=== PATIENT | male | born 1955 | race African-American/Black ===

== ENCOUNTER → 2021-01-14 | Emergency (ER) | payer OTHER ==
[~2021-01-14] MED LIST: ACETYLCYST 6,000 MG/30 ML VIAL ONE; CEFTRIAXONE/SWI 1gm 1 GM/10 ML SYR ONE; D50W 25 GM/50 ML SYRINGE IV PRN; GLUCAGON 1 MG/VIAL IM PRN; INSULIN -REGULAR HUMAN 50 UNIT/0.5 ML ML ONE; INSULIN 70/30 100 UNITS/ML SQ SCH; INSULIN GLARGINE 100 UNITS/ML SQ ONE; NA CHLORIDE 0.9% 1,000 ML IV SCH; NA CHLORIDE 0.9% 1,000 ML ONE; NA CHLORIDE 0.9% 500 ML ONE; PANTOPRAZOLE 40 MG INJ ONE; PIPER/TAZO/NS 3.375gm 3.375 GM/100 ML BAG IVPB SCH; VITAMIN K (ADULT) 10 MG/ML ONE
[2021-01-14 23:14] LABS: Protime INR 1.04
[2021-01-14 23:16] LABS: Absolute Lymphocytes (CBC) 1.5 K/uL (0.7-4.9); Basophils % 0.6 % (0-1.3); Hematocrit 29.3 % (39.6-49.0); Lymphocytes % 17.9 % (15.3-44.8); MPV 11.2 fL (7.6-11.3); RBC Red Blood Cell Count 3.06 M/uL (4.33-5.43)
[2021-01-14 23:34] LABS: ALT/SGPT 92 U/L (12-78); AST/SGOT 72 U/L (15-37); Albumin 2.3 g/dL (3.4-5.0); Alkaline Phosphatase 69 U/L (45-117); BUN Blood Urea Nitrogen 28 mg/dL (7-18); Bicarbonate 24 mmol/L (21-32); Bilirubin Direct 0.3 mg/dL (0-0.2); Bilirubin Total 0.5 mg/dL (0.2-1.0); Lipase 190 U/L (73-393); Magnesium 1.8 mg/dL (1.8-2.4); NT PRO-BNP 367 pg/mL (<125); Potassium 4.6 mmol/L (3.5-5.1); Protein, Total 6.5 g/dL (6.4-8.2); Sodium Level 136 mmol/L (136-145); Troponin (Emerg Dept Use Only) < 0.02 ng/mL (0.0-0.045)
[2021-01-14 23:37] LABS: Glucose Level 539 mg/dL (74-106)
--- NOTE | 2021-01-15 00:02 | ER ---
Nurse's Notes [facility] Name: Babatunde Garsia Age: 65 yrs Sex: Male : 1955 Arrival Date: 01/14/2021 Time: 21:50 Bed 4 Private MD: Diagnosis: Anemia, unspecified;Severe sepsis with septic shock;Elevated white blood cell count;Hypotension, unspecified;Type 1 diabetes mellitus with hyperglycemia;Weakness;Lower abdominal pain, unspecified;Unspecified kidney failure;Hemoperitoneum-liver etiology, atrumatic Presentation: 01/14 21:51 Chief complaint: EMS states: called out for low BP, on scene was 50s systolic, pt em reports taking 7 unknown BP medications, on arrival pt BP improved to 88 systolic, pt awake and drowsy, denies chest pain or shortness of breath, states he had LRQ pain, rates 12/14. Coronavirus screen: Client denies travel out of the [place] in the last 14 days. Ebola Screen: Patient negative for fever greater than or equal to 101.5 degrees Fahrenheit, and additional compatible Ebola Virus Disease symptoms Patient denies exposure to infectious person. Patient denies travel to an Ebola-affected area in the 21 days before illness onset. Initial Sepsis Screen: Does the patient meet any 2 criteria? HR > 90 bpm. No. Patient's initial sepsis screen is negative. Does the patient have a suspected source of infection? No. Patient's initial sepsis screen is negative. Risk Assessment: Do you want to hurt yourself or someone else? Patient reports no desire to harm self or others. Onset of symptoms was January 14, 2021. 21:51 Method Of Arrival: EMS: [facility] em 21:51 Acuity: ADRIANNA 2 em Historical: - Allergies: 21:54 No Known Allergies; em - PMHx: 21:54 Diabetes - IDDM; Hypertension; em - PSHx: 21:54 None; em - Immunization history:: Adult Immunizations up to date, Client reports receiving the 2nd dose of the Covid vaccine. - Social history:: Smoking status: Patient denies any tobacco usage or history of. - Family history:: not pertinent. Screenin:51 Abuse screen: Denies threats or abuse. Nutritional screening: No deficits noted. em Tuberculosis screening: No symptoms or risk factors identified. Fall Risk None identified. Assessment: 21:51 General: Appears in no apparent distress. uncomfortable, ill, slender, Behavior is em quiet, restless, Denies fever. Pain: Complains of pain in right lower quadrant Pain currently is 7 out of 10 on a pain scale. Pain began 2 hours ago. Neuro: Level of Consciousness is awake, alert, obeys commands, Oriented to person, place, time, situation, Appropriate for age general weakness everywhere . Cardiovascular: Capillary refill is sluggish Patient's skin is warm and dry. Respiratory: Airway is patent Respiratory effort is even, Respiratory pattern is tachypnea Denies shortness of breath labored breathing. GI: Patient currently denies bloody stool, nausea, vomiting. EENT: Oral mucosa is dry. Derm: Skin is intact, is healthy with good turgor, Skin is pink, warm \T\ dry. Musculoskeletal: Capillary refill < 3 seconds, Range of motion: intact in all extremities. 22:50 Reassessment: Patient appears in no apparent distress at this time. No changes from em previously documented assessment. 01/15 01:09 Reassessment: Patient appears in no apparent distress at this time. Patient is alert, em oriented x 3, equal unlabored respirations, skin warm/dry/pink. Patient states feeling better. Patient states symptoms have improved. 07:00 Reassessment: Patient appears in no apparent distress at this time. No changes from jl7 previously documented assessment. Patient and/or family updated on plan of care and expected duration. Pain level reassessed. Patient is alert, oriented x 3, equal unlabored respirations, skin warm/dry/pink. Pain: Complains of pain in right lower quadrant Pain currently is 7 out of 10 on a pain scale. Pain began 1 day ago. 08:00 Reassessment: Patient appears in no apparent distress at this time. No changes from jl7 previously documented assessment. Patient and/or family updated on plan of care and expected duration. Pain level reassessed. Patient is alert, oriented x 3, equal unlabored respirations, skin warm/dry/pink. 08:57 Reassessment: Patient appears in no apparent distress at this time. No changes from jl7 previously documented assessment. Patient and/or family updated on plan of care and expected duration. Pain level reassessed. Patient is alert, oriented x 3, equal unlabored respirations, skin warm/dry/pink. 12:30 Reassessment: Spoke to charge nurse patient will be transferred. zb 14:40 Reassessment: report given to EMS. Vital Signs: 01/14 21:51 BP 99 / 77; Pulse 109; Resp 26; Temp 97.0; Pulse Ox 94% on R/A; Weight 58.97 kg; Height em 5 ft. 9 in. (175.26 cm); Pain 7/10; 23:09 BP 70 / 52; Pulse 107; Resp 18; Pulse Ox 96% on R/A; em 23:20 BP 81 / 63; Pulse 106; Resp 24; Pulse Ox 93% on R/A; em 23:31 BP 99 / 68; Pulse 104; Resp 18; Pulse Ox 94% on R/A; em 0811 00:00 BP 89 / 57; Pulse 101; Resp 20; Pulse Ox 98% on R/A; em 00:15 BP 88 / 48; Pulse 98; Resp 22; Pulse Ox 99% on R/A; em 00:30 BP 86 / 68; Pulse 102; Resp 24; Pulse Ox 93% on R/A; em 01:14 BP 104 / 71; Pulse 107; Resp 22; Pulse Ox 95% on R/A; em 07:00 BP 116 / 83; Pulse 108; Resp 14; Temp 97.1; Pulse Ox 98% ; Pain 7/10; jl7 08:00 BP 143 / 98; Pulse 104; Resp 15; Pulse Ox 100% ; jl7 12:00 BP 130 / 89; Pulse 108; Resp 18; Pulse Ox 99% ; zb 13:30 BP 139 / 96; Pulse 98; Resp 18; Pulse Ox 98% on R/A; zb 14:38 BP 134 / 91; Pulse 108; Resp 18; Pulse Ox 99% on R/A; zb 01/14 21:51 Body Mass Index 19.20 (58.97 kg, 175.26 cm) em ED Course: 01/14 21:50 Patient arrived in ED. em 21:50 Patient has correct armband on for positive identification. Placed in gown. Bed in low em position. Call light in reach. Side rails up X2. Pulse ox on. NIBP on. 21:51 Maintain EMS IV. Dressing intact. Good blood return noted. Site clean \T\ dry. em 21:54 Triage completed. em 21:54 Arm band placed on. em 21:55 Beto Cooper, RN is Primary Nurse. em 22:07 Tom Montana MD is Attending Physician. severiano 22:25 XRAY Chest (1 view) In Process Unspecified. EDMS 22:45 Inserted saline lock: 18 gauge in right EJ, using aseptic technique. Blood collected. em 23:58 Geraldo Hassan MD is Hospitalizing Provider. [facility] 01/15 01:10 Assisted provider with central line placement. Set up central line tray. Triple lumen em line placed in right femoral. Line placed by Tom Montana MD Placement verified by blood return, Dressed with Tape, Tegaderm, Patient tolerated. 01:47 CT Head Brain wo Cont In Process Unspecified. EDMS 01:47 Chest Abd Pelvis Wo Con In Process Unspecified. EDMS 02:20 initiated a transfer with Krystal Cortes from [facility]. mw2 02:42 all [facility] denied due to capacity. mw2 02:45 initiated a transfer with Brooke Jerry from [facility]. mw2 03:00 all [facility] denied. mw2 03:02 initiated a transfer with John Dominguez from [facility]. mw2 03:[address] Montana with the Trauma doctor from [facility]. mw2 03:32 CT Chest, Abdomen, Pelvis - W/Contrast: lowest iv contrast dose In Process Unspecified. EDMS 03:56 initiated a transfer with Estefani from [facility]. mw2 04:[address] [facility] denied due to capacity. mw2 04:14 initiated a transfer with Bernadette Clements from [facility]. mw2 04:28 [facility] denied due to capacity. mw2 05:12 [facility] denied due to capacity. mw2 10:38 re initiated transfer to [facility]. bd 10:40 pt denied at [facility] due to all [facility] holding pts and no beds available. per KALEB Waters. 10:51 initiated transfer to [facility]. bd 11:06 pt denied due to all [facility] at capacity, per Malika. bd 11:13 initiated transfer to [facility] system. bd 11:22 pt denied at [facility] due to no beds available at any of the [facility] hospitals, per Vera. bd 11:24 re re initiated transfer to [facility]. bd 11:50 Attending Physician role handed off by Tom Montana MD kdr 11:50 Oliverio Hicks MD is Attending Physician. kdr 13:02 pt accepted in transfer to [facility] ER by dr Benavidez, admin approval given by KALEB Waters. 14:30 Patient transferred, IV remains in place. zb 14:45 Primary Nurse role handed off by Beto Cooper, RN zb 14:45 Fay Alexis, JUAN M is Primary Nurse. zb Administered Medications: 01/14 23:01 Drug: NS 0.9% 1000 ml Route: IV; Rate: 1 bolus; Site: left antecubital; em 01/15 01:20 Follow up: IV Status: Completed infusion; IV Intake: 1000ml em 01/14 23:11 Drug: NS 0.9% 1000 ml Route: IV; Rate: 125 ml/hr; Site: left antecubital; em 01/15 14:44 Follow up: Response: No adverse reaction; IV Status: Completed infusion; IV Intake: zb 1000ml 01/14 23:11 Drug: ProTONIX (pantoprazole) 40 mg Route: IVP; Site: left antecubital; em 01/15 01:20 Follow up: Response: No adverse reaction em 00:28 Drug: NS 0.9% 1000 ml Route: IV; Rate: 1 bolus; Site: left antecubital; em 01:20 Follow up: IV Status: Completed infusion; IV Intake: 1000ml em 00:28 Drug: Insulin Regular Human 10 units {Co-Signature: kg (Laurie Parikh RN).} Route: em IVP; Site: right jugular; 02:01 Follow up: Response: Blood sugar is lowered em 00:34 Drug: Rocephin (cefTRIAXone) 1 grams Route: IV; Rate: per protocol; Site: right jugular;em 01:20 Follow up: Response: No adverse reaction; IV Status: Completed infusion; IV Intake: 10mlem 02:16 Drug: Insulin Regular Human 10 units {Co-Signature: em (Beto Cooper RN).} Route: IVP; bb Site: left antecubital; 02:38 Follow up: Response: No adverse reaction em 02:16 Drug: LanTUS (insulin glargine) 35 units Route: Sub-Q; Site: left lower abdomen; bb 06:33 Follow up: Response: No adverse reaction em 03:50 Drug: Vitamin K1 (phytonadione) 10 mg Route: Sub-Q; Site: left lower abdomen; em 06:33 Follow up: Response: No adverse reaction em 03:52 Drug: Mucomyst - Acetylcysteine 600 mg Route: PO; em 06:32 Follow up: Response: No adverse reaction em Medication: 07:39 Blood products: FFP X 2 units given. jl7 Intake: 01:20 IV: 10ml; Total: 10ml. em 01:20 IV: 1000ml; Total: 1010ml. em 01:20 IV: 1000ml; Total: 2010ml. em 14:44 IV: 1000ml; Total: 3010ml. zb Outcome: 00:01 Decision to Hospitalize by Provider. severiano 13:30 Transferred by ground EMS to [facility], Transfer form completed. zb 14:42 Condition: stable zb 15:05 Patient left the ED. zb Signatures: Dispatcher [employer] EDMS Eusebia Sanchez Corey, MD MD cha Rittger, Kevin, MD MD kdr Munoz, Edgar, RN RN em Opal Martin RN RN bb Leal, Jahala, RN RN jl7 Pilar Ramirez 2 Fay Alexis RN RN zb Laurie Cooper RN em
--- NOTE | 2021-01-15 00:02 | EDPHYS ---
Physician Documentation [facility] Name: Babatunde Garsia Age: 65 yrs Sex: Male : 1955 Arrival Date: 01/14/2021 Time: 21:50 Bed 4 Private MD: ED Physician Oliverio Hicks HPI: 01/14 22:45 This 65 yrs old Black Male presents to ER via EMS with complaints of LOW BP. severiano 22:45 The patient presents with abdominal pain right lower quadrant. Onset: The severiano symptoms/episode began/occurred just prior to arrival. The symptoms do not radiate. Associated signs and symptoms: Pertinent positives: nausea and vomiting. Historical: - Allergies: 21:54 No Known Allergies; em - PMHx: 21:54 Diabetes - IDDM; Hypertension; em - PSHx: 21:54 None; em - Immunization history:: Adult Immunizations up to date, Client reports receiving the 2nd dose of the Covid vaccine. - Social history:: Smoking status: Patient denies any tobacco usage or history of. - Family history:: not pertinent. ROS: 22:48 Constitutional: Negative for fever, chills, and weight loss, Eyes: Negative for injury, severiano pain, redness, and discharge, ENT: Negative for injury, pain, and discharge, Neck: Negative for injury, pain, and swelling, Cardiovascular: Negative for chest pain, palpitations, and edema, Respiratory: Negative for shortness of breath, cough, wheezing, and pleuritic chest pain, Back: Negative for injury and pain, : Negative for injury, bleeding, discharge, and swelling, MS/Extremity: Negative for injury and deformity, Skin: Negative for injury, rash, and discoloration, Psych: Negative for depression, anxiety, suicide ideation, homicidal ideation, and hallucinations, Allergy/Immunology: Negative for hives, rash, and allergies, Endocrine: Negative for neck swelling, polydipsia, polyuria, polyphagia, and marked weight changes, Hematologic/Lymphatic: Negative for swollen nodes, abnormal bleeding, and unusual bruising. 22:48 Respiratory: Positive for cough, with no reported sputum, dyspnea on exertion. 22:48 Abdomen/GI: Positive for abdominal pain, of the right lower quadrant. Exam: 22:48 Constitutional: This is a well developed, well nourished patient who is awake, alert, severiano and in no acute distress. Head/Face: Normocephalic, atraumatic. ENT: Nares patent. No nasal discharge, no septal abnormalities noted. Tympanic membranes are normal and external auditory canals are clear. Oropharynx with no redness, swelling, or masses, exudates, or evidence of obstruction, uvula midline. Mucous membranes moist. Neck: Trachea midline, no thyromegaly or masses palpated, and no cervical lymphadenopathy. Supple, full range of motion without nuchal rigidity, or vertebral point tenderness. No Meningismus. Chest/axilla: Normal chest wall appearance and motion. Nontender with no deformity. No lesions are appreciated. Respiratory: Lungs have equal breath sounds bilaterally, clear to auscultation and percussion. No rales, rhonchi or wheezes noted. No increased work of breathing, no retractions or nasal flaring. Abdomen/GI: Soft, non-tender, with normal bowel sounds. No distension or tympany. No guarding or rebound. No evidence of tenderness throughout. Back: No spinal tenderness. No costovertebral tenderness. Full range of motion. Male : Normal genitalia with no discharge or lesions. Skin: Warm, dry with normal turgor. Normal color with no rashes, no lesions, and no evidence of cellulitis. MS/ Extremity: Pulses equal, no cyanosis. Neurovascular intact. Full, normal range of motion. Neuro: Awake and alert, GCS 15, oriented to person, place, time, and situation. Cranial nerves II-XII grossly intact. Motor strength 5/5 in all extremities. Sensory grossly intact. Cerebellar exam normal. Normal gait. Psych: Awake, alert, with orientation to person, place and time. Behavior, mood, and affect are within normal limits. 22:48 Eyes: Conjunctiva: pale, bilaterally. 22:48 ECG was reviewed by the Attending Physician. 22:48 Abdomen/GI: Inspection: abdomen appears normal, Bowel sounds: normal, active, all quadrants, Palpation: moderate abdominal tenderness, in the right lower quadrant, Rectal exam: is unremarkable, Prostate: normal, rectal tone normal, Stool: normal, guaiac negative, hemorrhoid(s), are not appreciated, swelling, is not appreciated, tenderness, is not appreciated, Liver: no appreciated palpable abnormalities, Hernia: not appreciated. Vital Signs: 21:51 BP 99 / 77; Pulse 109; Resp 26; Temp 97.0; Pulse Ox 94% on R/A; Weight 58.97 kg; Height em 5 ft. 9 in. (175.26 cm); Pain 7/10; 23:09 BP 70 / 52; Pulse 107; Resp 18; Pulse Ox 96% on R/A; em 23:20 BP 81 / 63; Pulse 106; Resp 24; Pulse Ox 93% on R/A; em 23:31 BP 99 / 68; Pulse 104; Resp 18; Pulse Ox 94% on R/A; em 08/11 00:00 BP 89 / 57; Pulse 101; Resp 20; Pulse Ox 98% on R/A; em 00:15 BP 88 / 48; Pulse 98; Resp 22; Pulse Ox 99% on R/A; em 00:30 BP 86 / 68; Pulse 102; Resp 24; Pulse Ox 93% on R/A; em 01:14 BP 104 / 71; Pulse 107; Resp 22; Pulse Ox 95% on R/A; em 07:00 BP 116 / 83; Pulse 108; Resp 14; Temp 97.1; Pulse Ox 98% ; Pain 7/10; jl7 08:00 BP 143 / 98; Pulse 104; Resp 15; Pulse Ox 100% ; jl7 12:00 BP 130 / 89; Pulse 108; Resp 18; Pulse Ox 99% ; zb 13:30 BP 139 / 96; Pulse 98; Resp 18; Pulse Ox 98% on R/A; zb 14:38 BP 134 / 91; Pulse 108; Resp 18; Pulse Ox 99% on R/A; zb 08/10 21:51 Body Mass Index 19.20 (58.97 kg, 175.26 cm) em Procedures: 01:09 Central Line: the site was prepped with Betadine, in sterile fashion, a triple lumen severiano catheter was inserted, in the right in 1 attempts. placement was verified, by blood return, the site was dressed with 4X4s, using sterile technique, the patient tolerated the procedure, well. MDM: 01/14 22:07 Patient medically screened. severiano 22:51 Differential diagnosis: AAA, bowel obstruction, diverticulitis, GI Bleed, Hepatitis, severiano myocardia ischemia or infarction, non-specific abd pain, pancreatitis, Peptic Ulcer Disease, Peritonitis, urinary tract infection. Data reviewed: vital signs, nurses notes, EMS record, lab test result(s), EKG, radiologic studies, CT scan, plain films. Data interpreted: tunnel worker: rate is 109 beats/min, rhythm is regular, Pulse oximetry: on room air is 94 %. Test interpretation: by ED physician or midlevel provider: ECG, plain radiologic studies. Counseling: I had a detailed discussion with the patient and/or guardian regarding: the historical points, exam findings, and any diagnostic results supporting the discharge/admit diagnosis, lab results, radiology results, the need for further work-up and treatment in the hospital. 01/14 21:58 Order name: Basic Metabolic Panel; Complete Time: 23:55 01/14 21:58 Order name: CBC with Diff; Complete Time: 23:35 01/14 21:58 Order name: LFT's; Complete Time: 23:55 01/14 21:58 Order name: Magnesium; Complete Time: 23:55 01/14 21:58 Order name: NT PRO-BNP; Complete Time: 23:55 01/14 21:58 Order name: PT-INR; Complete Time: 23:35 01/14 21:58 Order name: Troponin (emerg Dept Use Only); Complete Time: 23:55 01/14 22:09 Order name: Urine Culture [facility] 01/14 22:44 Order name: Procalcitonin; Complete Time: 02:22 [facility] 01/14 22:44 Order name: Lactate; Complete Time: 23:55 [facility] 01/14 22:45 Order name: Type And Screen; Complete Time: 07:11 [facility] 01/14 22:48 Order name: COVID-19 : Document "Date of Symptom Onset" if Symptomatic. [facility] 01/14 23:03 Order name: Lipase; Complete Time: 23:55 [facility] 01/14 23:56 Order name: Blood Culture Adult (2) [facility] 01/15 00:42 Order name: Urinalysis 01/15 01:19 Order name: SARS-COV-2 RT PCR; Complete Time: 02:22 [facility] 01/15 01:36 Order name: Glucose, Ancillary Testing; Complete Time: 02:22 [facility] 01/15 02:24 Order name: CBC with Diff; Complete Time: 07:11 [facility] 01/15 02:28 Order name: Fresh Frozen Plasma [facility] 01/15 02:28 Order name: Packed RBC Leukored [facility] 01/15 02:42 Order name: Manual Differential; Complete Time: 07:11 [facility] 01/15 06:20 Order name: CBC with Diff; Complete Time: 07:11 severiano 01/15 06:23 Order name: Chem 7 severiano 01/15 06:24 Order name: Basic Metabolic Panel; Complete Time: 07:11 [facility] 01/15 11:07 Order name: Comprehensive Metabolic Panel [facility] 01/15 11:07 Order name: Magnesium [facility] 01/15 11:07 Order name: NT PRO-BNP [facility] 01/15 11:07 Order name: Phosphorus [facility] 01/14 21:58 Order name: XRAY Chest (1 view); Complete Time: 10:15 em 01/14 22:48 Order name: CT Head Brain wo Cont severiano 01/14 23:39 Order name: Chest Abd Pelvis Wo Con [facility] 01/15 03:00 Order name: CT Chest, Abdomen, Pelvis - W/Contrast: lowest iv contrast dose [facility] 01/15 11:07 Order name: Protime (+INR) [facility] 01/15 11:07 Order name: PTT, Activated Partial Thromb [facility] 01/15 11:07 Order name: CBC with Automated Diff [facility] 01/15 11:07 Order name: Lactate Sepsis 2 HR Follow-up; Complete Time: 11:43 [facility] 01/15 11:44 Order name: CBC with Diff kdr 01/15 11:44 Order name: Chem 7 kdr 01/15 12:07 Order name: Glucose, Ancillary Testing [facility] 01/15 12:55 Order name: CBC Smear Scan [facility] 01/15 14:22 Order name: Magnesium [facility] 01/15 14:22 Order name: NT PRO-BNP [facility] 01/15 14:22 Order name: Phosphorus [facility] 01/15 14:22 Order name: Procalcitonin [facility] 01/15 14:22 Order name: Protime (+INR) [facility] 01/15 14:22 Order name: PTT, Activated Partial Thromb [facility] 01/15 14:22 Order name: CBC with Automated Diff ED[facility] 01/15 14:22 Order name: CBC with Automated Diff [facility] 01/15 14:22 Order name: CBC with Automated Diff [facility] 01/15 14:22 Order name: CBC with Automated Diff [facility] 01/15 14:22 Order name: CBC with Automated Diff [facility] 01/15 14:22 Order name: CBC with Automated Diff [facility] 01/15 14:22 Order name: CBC with Automated Diff [facility] 01/15 14:22 Order name: CBC with Automated Diff [facility] 01/15 14:22 Order name: CBC with Automated Diff [facility] 01/14 21:58 Order name: EKG; Complete Time: 21:59 em 01/14 21:58 Order name: Cardiac monitoring; Complete Time: 22:53 em 01/14 21:58 Order name: EKG - Nurse/Tech; Complete Time: 22:53 em 01/14 21:58 Order name: IV Saline Lock; Complete Time: 22:53 em 01/14 21:58 Order name: Labs collected and sent; Complete Time: :53 em 01/14 21:58 Order name: O2 Per Protocol; Complete Time: 22:53 em 01/14 21:58 Order name: O2 Sat Monitoring; Complete Time: 22:53 em 01/14 22:27 Order name: Blood Glucose Level; Complete Time: 22:53 [facility] 01/15 02:37 Order name: Transfuse; Complete Time: 03:09 [facility] EC:48 Rate is 105 beats/min. Rhythm is regular. QRS [place] is Normal. OR interval is normal. severiano QRS interval is normal. QT interval is normal. No Q waves. T waves are Inverted in leads II, III, aVF. No ST changes noted. Clinical impression: NSR w/ Non-specific ST/T Changes and No evidence of ischemia. Interpreted by me. Reviewed by me. Administered Medications: 23:01 Drug: NS 0.9% 1000 ml Route: IV; Rate: 1 bolus; Site: left antecubital; 01/15 01:20 Follow up: IV Status: Completed infusion; IV Intake: 1000ml 01/14 23:11 Drug: NS 0.9% 1000 ml Route: IV; Rate: 125 ml/hr; Site: left antecubital; 01/15 14:44 Follow up: Response: No adverse reaction; IV Status: Completed infusion; IV Intake: zb 1000ml 01/14 23:11 Drug: ProTONIX (pantoprazole) 40 mg Route: IVP; Site: left antecubital; 01/15 01:20 Follow up: Response: No adverse reaction em 00:28 Drug: NS 0.9% 1000 ml Route: IV; Rate: 1 bolus; Site: left antecubital; em 01:20 Follow up: IV Status: Completed infusion; IV Intake: 1000ml em 00:28 Drug: Insulin Regular Human 10 units {Co-Signature: kg (Laurie Parikh RN).} Route: em IVP; Site: right jugular; 02:01 Follow up: Response: Blood sugar is lowered em 00:34 Drug: Rocephin (cefTRIAXone) 1 grams Route: IV; Rate: per protocol; Site: right jugular;em 01:20 Follow up: Response: No adverse reaction; IV Status: Completed infusion; IV Intake: 10mlem 02:16 Drug: Insulin Regular Human 10 units {Co-Signature: em (Beto Cooper RN).} Route: IVP; bb Site: left antecubital; 02:38 Follow up: Response: No adverse reaction em 02:16 Drug: LanTUS (insulin glargine) 35 units Route: Sub-Q; Site: left lower abdomen; bb 06:33 Follow up: Response: No adverse reaction em 03:50 Drug: Vitamin K1 (phytonadione) 10 mg Route: Sub-Q; Site: left lower abdomen; em 06:33 Follow up: Response: No adverse reaction em 03:52 Drug: Mucomyst - Acetylcysteine 600 mg Route: PO; em 06:32 Follow up: Response: No adverse reaction em Disposition Summary: 01/15/21 00:01 Hospitalization Ordered Hospitalization Status: Inpatient Admission severiano Provider: Geraldo Hassan cha Condition: Serious severiano Problem: new severiano Symptoms: have improved severiano Bed/Room Type: Standard severiano Location: Intensive Care Unit(01/15/21 03:00) severiano Room Assignment: (01/15/21 03:00) severiano Diagnosis - Anemia, unspecified severiano - Severe sepsis with septic shock severiano - Elevated white blood cell count severiano - Hypotension, unspecified severiano - Type 1 diabetes mellitus with hyperglycemia severiano - Weakness severiano - Lower abdominal pain, unspecified severiano - Unspecified kidney failure severiano - Hemoperitoneum - liver etiology, atrumatic severiano Forms: - Medication Reconciliation Form severiano - SBAR form severiano Signatures: Dispatcher [employer] Liliana Hernandez, NICKI-C CEMENTING MACHINE OPERATOR-Tom Ratliff MD MD cha Rittger, Kevin, MD MD kdr Munoz Beto, RN RN em Opal Martin RN RN Gale Wilder, JUAN M RN Fay Warren RN, RN Beto Cooper RN em Corrections: (The following items were deleted from the chart) 01/14 22:41 22:10 Abdomen Pelvis W Con+CT.RAD.BRZ ordered. EDMS EDMS 23:01 22:10 LIPASE+C.LAB.BRZ ordered. EDMS EDMS 23:03 22:49 CORONAVIRUS ordered. EDMS EDMS 23:39 22:34 Chest Abdomen Pelvis W Con+CT.RAD.BRZ ordered. EDMS EDMS 01/15 02:42 00:01 Telemetry/MedSurg (Inpatient) [facility] 02:42 00:01 severiano 03:00 02:42 BR ER HOLD cg [facility] 03:00 02:42 ERHOLD- cg severiano
[2021-01-15 02:41] LABS: Absolute Lymphocytes (CBC) 0.7 K/uL (0.7-4.9); Basophils % 0.1 % (0-1.3); Hematocrit 26.7 % (39.6-49.0); Lymphocytes % 8.8 % (15.3-44.8); MPV 10.2 fL (7.6-11.3); RBC Red Blood Cell Count 2.79 M/uL (4.33-5.43)
[2021-01-15 03:19] LABS: Blood Morphology Comment NOT SEEN (NOT SEEN); Platelet Estimate ADEQ
[2021-01-15 06:39] LABS: Basophils % 0.2 % (0-1.3); Hematocrit 33.1 % (39.6-49.0); Lymphocytes % 11.4 % (15.3-44.8); MPV 10.7 fL (7.6-11.3); RBC Red Blood Cell Count 3.53 M/uL (4.33-5.43)
[2021-01-15 07:10] LABS: Potassium 5.8 mmol/L (3.5-5.1)
--- NOTE | 2021-01-15 07:31 | EKG ---
Test Date: 2021-01-14 Test Time: 22:46:43 Open Winder: SANJUANITA MEASUREMENT RESULTS: Intervals: Rate: 105 CA: 150 QRSD: 70 QT: 364 QTc: 481 [place]ue[place]: P: 36 CA: 150 QRS: 11 T: -27 INTERPRETIVE STATEMENTS: Sinus tachycardia Nonspecific T wave abnormality Abnormal ECG Compared to ECG 01/10/2011 10:48:04 Sinus rhythm no longer present Left ventricular hypertrophy no longer present T-wave abnormality still present Electronically Signed On 01-15-21 07:30:56 CDT by Ralf Cooper
--- NOTE | 2021-01-15 07:38 | RAD REPORT ---
EXAM DESCRIPTION: RAD - Chest Single View - 01/14/2021 10:25 pm CLINICAL HISTORY: low BP COMPARISON: Chest Pa And Lat (2 Views) dated 06/29/2017; Chest Single View dated 11/07/2015 FINDINGS: No evidence of edema or pneumonia. The heart size is within normal limits.No acute osseous abnormality. No significant pleural effusions or pneumothorax. IMPRESSION: No acute cardiopulmonary disease.
--- NOTE | 2021-01-15 11:33 | CON ---
Please note that the patient was came in the ER by Surgery last night. Dr. Del Rio went and saw him immediately upon ER request and evaluated the patient, and he has signed out this patient to me as warren merida is leaving town. History: The patient is a 65-year-old gentleman, who yesterday afternoon at 0345 started to have nicolette e pain on the right side of his belly, then felt dizzy and fell. Then, he came to the emergency room . He had a little bit of nausea and vomiting. When EMS picked him up, his blood pressure was low. The patient has no sore throat, runny nose, cough, headaches, or dizziness. No chest pain. No fever or chills. No diarrhea or constipation. No blood in his stool. No dysuria or hematuria. Review of Systems: Otherwise unremarkable. Past Medical History: Significant for diabetes type 2, hypertension. Past Surgical History: Noncontributory. Allergies: NO ALLERGIES. Social History: The patient was a heavy drinker in the past. He states that he drinks approximately 3 beers a day now. He does not smoke tobacco. Family History: Noncontributory. He has been vaccinated for COVID. Physical Examination: Vital Signs: Blood pressure of 199 systolic, pulse rate of 104, O2 saturation of 94% on room air. General: He is awake, alert. Head and Neck: Cranial nerves 2 through 12 are grossly within normal limits. No neck masses. No JV D. Throat clear. Neck is supple. Sclerae somewhat muddy appearing. Chest: Clear. Heart: S1 and S2. Abdomen: Soft, nondistended. Minimal tenderness on the right side. No rebound, rigidity, or guardi ng. Extremities: Adequately perfused. Nontender. Neuro: Nonfocal. Laboratory Data: CT of the abdomen and pelvis and chest reviewed with the radiologist. Essentially, the patient has cirrhosis of the liver and a mass 5.2 x 5.2 x 6.8 with active hemorrhage, some free blood in the peritoneal cavity as well, cholelithiasis, and scattered ill-defined low-density heterog eneous lesions adjacent to the mass in the right liver, which may represent local spread of disease. His laboratory data shows H and H are 9.7 and 29.3 on admission, currently is 11.3 and 33.1. The tg butts did receive transfusion, I believe it was 1 unit. His PT was 12 on admission. His potassium i s elevated at 5.8. Lactic acid is 6.5. Glucose is 424. Procalcitonin is 0.52. BUN and creatinine are 28 and 2.16. Prior to that, it was 28 and 2.86. AST and ALT are slightly elevated at 72 and 92. Albumin is 2.3. Assessment: A 65-year-old gentleman with multiple medical problems with bleeding liver mass with cir rhosis, most likely hepatocellular carcinoma. Recommendations: The patient needs to be transferred immediately to a tertiary care facility. He ma y need intervention with embolization for this bleeding first and then diagnostic workup. His progno sis is very poor. He is clinically stable right now. We will continue to support him with blood and blood products as needed. Surgical intervention would only be considered in a grave situation. Rojelio n of care discussed with all the physicians taking care of this patient. Transfer mechanism is in pr ogress. Please note, the reason we having difficulty transferring this patient is because of lack of bed avai lability in the [place] area. We may need to transfer him elsewhere in the [facility]. We will work with Dr. Hicks and trying to arrange for a timely transfer for this patient. CYNTHIA/MODL Voice ID: [id number] Report ID: [id number]
--- NOTE | 2021-01-15 11:51 | RAD REPORT ---
EXAM DESCRIPTION: CT - Head Brain Wo Cont - 01/15/2021 6:07 am CLINICAL HISTORY: 65 years Male Weakness; Mental status change TECHNIQUE: Axial noncontrast CT head with coronal and sagittal reformats. All CT scans at this [facility] use dose modulation, iterative reconstruction, and/or weight based dosing when appropriate to red uce radiation dose to as low as reasonably achievable. COMPARISON: None. FINDINGS: Brain: Diffuse parenchymal volume loss. Chronic small vessel disease. Remote lacunar infar ct in the left thalamus. No obvious large acute territorial infarction. No intracranial hemorrhage, m idline shift, mass or mass effect. Ventricles: No hydrocephalus. Orbits: Unremarkable. Sinuses: Visualized portions are clear. Mastoid: Clear. Osseous: Unremarkable. Soft tissues: Unremarkable. IMPRESSION: No acute findings. Due to temporary technical issues with the PACS/Fluency reporting system, reports are being signed by the in house radiologist without review as a courtesy to ensure prompt reporting. The interpreting r adiologist is fully responsible for the content of the report.
--- NOTE | 2021-01-15 12:07 | RAD REPORT ---
EXAM DESCRIPTION: CT - Chest Abd Pelvis Wo Con - 01/15/2021 6:07 am CLINICAL HISTORY: 65 years Male Abdominal distention; Pain TECHNIQUE: CT chest, abdomen, pelvis protocol without intravenous contrast. Coronal and sagittal ref ormats were performed. All CT scans at this facility use dose modulation, iterative reconstruction, a nd/or weight based dosing when appropriate to reduce radiation dose to as low as reasonably achievabl e. COMPARISON: None. FINDINGS: Chest: Lungs: Minimal bibasilar dependent atelectasis. Pleura: No pneumothorax. No pleural effusion. Mediastinum: Dense coronary artery calcifications. No mediastinal mass or adenopathy. No pericardial effusion. Vascular: Grossly unremarkable. Bones: Multilevel degenerative changes. Sclerosis of the right sixth rib. Soft tissues: Unremarkable Abdomen/Pelvis: Liver: Large hyperdense fluid posterior and inferior to the right hepatic lobe. Underlying hepatic le carlos is difficult to evaluate in this noncontrast study. Gallbladder: No calcified stone. Pancreas: Within normal limits. Spleen: Calcified granulomas are present. Perisplenic fluid is also seen. Kidney: No stone or hydronephrosis. Adrenal glands: Within normal limits. Vascular structures: Atherosclerosis of the aorta and its major branches. Bowel: No bowel distention. Appendix: Not seen. Peritoneum/retroperitoneum: There is also hemorrhage in the pelvis. No free air. Lymph Nodes: No lymphadenopathy. Reproductive: Unremarkable. Urinary bladder: Unremarkable. Osseous structures: Multilevel degenerative changes. Soft tissues: Unremarkable. IMPRESSION: Hemoperitoneum in the abdomen and pelvis. Suspect that the source of hemorrhage is proba radha from the right hepatic lobe. Underlying hepatic lesion is difficult to evaluate in this noncontra st study. THIS REPORT CONTAINS FINDINGS THAT MAY BE CRITICAL TO PATIENT CARE: The findings were verbally discu ssed via telephone conference with Tom Montana MD on 01/15/2021 at 2:21 AM CDT. Electronically signed by: Diego Madrid MD 01/15/2021 2:28 AM CDT Due to temporary technical issues with the PACS/Fluency reporting system, reports are being signed by the in house radiologist without review as a courtesy to ensure prompt reporting. The interpreting r adiologist is fully responsible for the content of the report.
--- NOTE | 2021-01-15 12:18 | RAD REPORT ---
EXAM DESCRIPTION: CT - Chest Abdomen Pelvis W Cont - 01/15/2021 6:06 am ADDENDUM #1 THIS REPORT CONTAINS FINDINGS THAT MAY BE CRITICAL TO PATIENT CARE: The findings were verbally discu ssed via telephone conference with Dr. Tom Montana by Dr. Tutu Guzman on 01/15/2021 4:17 AM CDT .The results were acknowledged and understood. Electronically signed by: Tutu Guzman MD 01/15/2021 4:26 AM CDT End of Addendum CLINICAL HISTORY: The patient is 65 years old and is Male; Cough;Abdominal distention;Pain TECHNIQUE: Axial computed tomography images of the chest, abdomen and pelvis with intravenous contra st. Sagittal and coronal reformatted images were created and reviewed. This CT exam was performed using one or more of the following dose reduction techniques: automated exposure control, adjustme nt of the mA and/or kV according to patient size, and/or use of iterative reconstruction technique. COMPARISON: CT chest abdomen and pelvis without contrast January 15, 2021 1:44 AM. FINDINGS: CHEST: Lungs: Bibasilar and dependent atelectasis. Pleural space: Unremarkable. No significant effusion. No pneumothorax. Heart: Unremarkable. No cardiomegaly. No significant pericardial effusion. Mediastinum: Small hiatal hernia. ABDOMEN: Liver: Cirrhotic appearance to the liver with a nodular contour to the liver surface and caudate hypertrophy. There appears to be a round 5.2 x 5.2 x 6.8 cm discrete slightly hypodense and heterogeneous mass in the right posterior liver. On arterial phase imaging, there is contrast blush within the mas s suggestive of active hemorrhage. There are scattered ill-defined low-density heterogeneous lesions adjacent to the mass in the right liver which may represent local spread of disease. There is a high/mixed-density fluid collection around the liver and spleen tracking down int o the lower abdomen and pelvis. Gallbladder and bile ducts: Cholelithiasis. No ductal dilation. Pancreas: Unremarkable. No ductal dilation. No mass. Spleen: See above. Adrenals: Unremarkable. No mass. Kidneys and ureters: Unremarkable. No hydronephrosis. No solid mass. Stomach and bowel: Unremarkable. No obstruction. No mucosal thickening. PELVIS: Appendix: No findings to suggest acute appendicitis. Bladder: Unremarkable. No mass. Reproductive: Unremarkable as visualized. CHEST, ABDOMEN and PELVIS: Intraperitoneal space: Unremarkable. No significant fluid collection. No free air. Bones/joints: Disc space narrowing with destructive endplate changes in the spine from L2-3 thro ugh L5-S1. No acute fracture. No dislocation. Soft tissues: Unremarkable. Vasculature: Scattered atherosclerotic vascular calcifications. Lymph nodes: Unremarkable. No enlarged lymph nodes. IMPRESSION: 1. Cirrhotic appearance to the liver with a nodular contour to the liver surface and c audate hypertrophy. 2. There appears to be a round 5.2 x 5.2 x 6.8 cm discrete slightly hypodense and heterogeneous mas s in the right posterior liver. On arterial phase imaging, there is contrast blush within the mass marin ggestive of active hemorrhage. There are scattered ill-defined low-density heterogeneous lesions vera cent to the mass in the right liver which may represent local spread of disease. Findings are matteo rning for malignancy. 3. There is a high/mixed-density fluid collection around the liver and spleen tracking down into th e lower abdomen and pelvis. Findings are suggestive of evolving hemoperitoneum related to the hemorrhagic mass. 4. Cholelithiasis. Electronically signed by: Tutu Guzman MD 01/15/2021 4:06 AM CDT Due to temporary technical issues with the PACS/Fluency reporting system, reports are being signed by the in house radiologist without review as a courtesy to ensure prompt reporting. The interpreting r adiologist is fully responsible for the content of the report.
[2021-01-15 12:37] LABS: Albumin 2.5 g/dL (3.4-5.0); Bilirubin Total 0.6 mg/dL (0.2-1.0); Magnesium 1.8 mg/dL (1.8-2.4); Phosphorus 3.2 mg/dL (2.5-4.9); Potassium 4.3 mmol/L (3.5-5.1); Protein, Total 6.6 g/dL (6.4-8.2)
[2021-01-15 12:42] LABS: Absolute Lymphocytes (CBC) 1.4 K/uL (0.7-4.9); Basophils % 0.4 % (0-1.3); Hematocrit 28.5 % (39.6-49.0); MPV 10.7 fL (7.6-11.3); RBC Red Blood Cell Count 3.08 M/uL (4.33-5.43)
[2021-01-15 12:43] LABS: Protime INR 0.97
--- NOTE | 2021-01-15 14:16 | P.CNS ---
Date of Consult: 01/15/21 Reason for Consult: Medical management Requesting Physician: Tom Montana Chief Complaint: Abdominal pain History of Present Illness: Patient is a 65-year-old gentleman who came to the hospital with abdominal discomfort. He was going to go to work at the [employer]; however, he started feeling weak and having pain so he had EMS come to evaluate him. He was found have a systolic blood pressure in the 50s. He had apparently taken a few extra blood pressure medications for unknown reason. He was brought into the emergency room and on arrival he had multiple imaging studies performed as he was having some abdominal discomfort. Imaging of the abdomen revealed liver hemorrhage. Decision was made to transfer to a tertiary care facility in general surgeon, Dr. Del Rio, was called out. He evaluated the patient and requested transfer. Patient also has multiple medical problems including hyperglycemia from diabetes. Patient also with acute liver injury. We were consulted to help manage patient's medical conditions. Allergies No Known Allergies Allergy (Unverified 08/26/15 14:58) - Past Medical/Surgical History -: Type 2 diabetes -: None - Family History Father Family History: Reviewed- Non-Contributory - Social History Smoking Status: Never smoker Alcohol use: No CD- Drugs: No Review of Systems 10-point ROS is otherwise unremarkable Physical Examination Reviewed General: Alert, In no apparent distress, Oriented x3 HEENT: Atraumatic, PERRLA, Mucous membr. moist/pink, EOMI, Sclerae nonicteric Neck: Supple, 2+ carotid pulse no bruit, No LAD, Without JVD or thyroid abnormality Respiratory: Clear to auscultation bilaterally, Normal air movement Cardiovascular: Regular rate/rhythm, Normal S1 S2 Gastrointestinal: Normal bowel sounds, Soft and benign, Non-distended, No guarding, Tenderness, Rebound Musculoskeletal: No clubbing, No swelling, No tenderness Integumentary: No rashes Neurological: Normal gait, Normal speech, Normal tone, Sensation intact, Cranial nerves 3-12 intact, Normal affect Lymphatics: No axilla or inguinal lymphadenopathy Laboratory Data (last 24 hrs) 01/15/21 12:00: WBC 7.20 D, Hgb 9.8 L, Hct 28.5 L, Plt Count 95 L 01/15/21 12:00: PT 11.2, INR 0.97, APTT 25.1 01/15/21 12:00: Sodium 139, Potassium 4.3, BUN 25 H, Creatinine 1.73 H, Glucose 329 H, Phosphorus 3.2, Magnesium 1.8, Total Bilirubin 0.6, AST 487 H* D, ALT 217 H D, Alkaline Phosphatase 76 01/15/21 06:25: Sodium 135 L, Potassium 5.8 H*, BUN 28 H, Creatinine 2.16 H, Glucose 400 H 01/15/21 06:25: WBC 8.50, Hgb 11.3 L, Hct 33.1 L D, Plt Count 116 L 01/15/21 02:25: WBC 8.20, Hgb 9.0 L, Hct 26.7 L, Plt Count 129 L D 01/14/21 22:45: PT 12.0, INR 1.04 01/14/21 22:45: WBC 8.30, Hgb 9.7 L, Hct 29.3 L, Plt Count 167 01/14/21 22:45: Sodium 136, Potassium 4.6, BUN 28 H, Creatinine 2.86 H, Glucose 539 H*, Magnesium 1.8, Total Bilirubin 0.5, AST 72 H, ALT 92 H, Alkaline Phosphatase 69, Lipase 190 01/14/21 22:09: Lipase Cancelled - Problems (1) Traumatic hemorrhage of liver Current Visit: Yes Status: Acute (2) Hyperglycemia Current Visit: Yes Status: Acute (3) Anemia Current Visit: Yes Status: Acute (4) Type 2 diabetes mellitus Current Visit: Yes Status: Acute Conclusions/ Impression: Plan: 1. Continue with IV hydration and monitor H&H and coagulation profile. 2. Continue with IV antibiotics 3. Continue with pain control 4. NPO 5. GI consultation; general surgery consultation 6. Serial H&H, and we will monitor LFTs and lipase along with electrolytes. 7. Strict blood sugar control 8. GI and DVT prophylaxis Critical Care: Yes Time Spent Managing Pts care (In Minutes): 60
[2021-01-15 15:26] VITALS: TEMP 97.1
[2021-01-15 15:32] VITALS: BP 134/91; O2SAT 99
[2021-01-15 19:03] LABS: Blood Morphology Comment NOT SEEN (NOT SEEN); Platelet Estimate DECR; White Blood Cell Scan OK (OK)
== END ==
LOC: ER 21:46
PROC: 30233K1 Transfusion of Nonautologous Frozen Plasma into Peripheral Vein, Percutaneous Approach (ICD-10-PCS; principal; 2021-01-14)
PROC: 06HT33Z Insertion of Infusion Device into Right Foot Vein, Percutaneous Approach (ICD-10-PCS; 2021-01-14)
DX: D64.9 Anemia, unspecified (principal); R65.21 Severe sepsis with septic shock; K66.1 Hemoperitoneum; N19 Unspecified kidney failure; D72.829 Elevated white blood cell count, unspecified; E10.65 Type 1 diabetes mellitus with hyperglycemia; R53.1 Weakness; R10.31 Right lower quadrant pain; Z20.822 Contact with and (suspected) exposure to COVID-19
CPT/HCPCS: 36430; 36556; 93005; 85025; 80048; 36415; 86900; 83735; 86850; 85610; 86901; 80076; 83605; 84484; 83690; 84145; 83880; 70450; 71250; 74176; 71045; U0003; C9113; J7030; 71260; 74177; Q9967

== ENCOUNTER 2021-11-29 17:20 | Emergency (ER) | payer OTHER ==
--- OUTSIDE RECORDS SUMMARY | 2021-11-29 17:26 | XMS REPORT | Continuity of Care Document ---
:1955 Author Organization [facility] t Address [address] [place] [address] Care Team Providers Name Role Phone VIRGEN Attending Clinician Unavailable ERICA Attending Clinician Unavailable ERICA Attending Clinician Unavailable HEBERT CESAR Attending Clinician Unavailable IZAIAH PARNELL Attending Clinician Unavailable ELIJAH Attending Clinician Unavailable NEVIN Attending Clinician Unavailable VIRGEN Admitting Clinician Unavailable JENNIFER SAUCEDO Admitting Clinician Unavailable Payers Payer Name Policy Type Policy Number Effective Date Expiration Date S ource CIGNA [id number] 2015 HMO/POS/OPEN 00:00:00 ACCESS HMO/POS OPEN [id number] 2015 2021 00:00:00 ACCESS - CIGNA 00:00:00 Problems This patient has no known problems. Allergies, Adverse Reactions, Alerts Allergy Allergy Status Severity Reaction(s) Onset Inactive Treating Comm ents Source Name Type Date Date Clinician NO KNOWN Allergy Active [facility] ALLERGIE S Medications This patient has no known medications. Vital Signs Vital Name Observation Time Observation Value Comments Source HEIGHT 2021-03-26 17:47:00 175.3 cm WEIGHT 2021-03-26 17:47:00 60.782 kg HEIGHT 2021-03-12 09:30:00 175.3 cm WEIGHT 2021-03-12 09:30:00 61.009 kg HEIGHT 2021-03-12 09:30:00 175.3 cm WEIGHT 2021-03-12 09:30:00 61.009 kg WEIGHT 2021-01-16 08:02:00 61 kg HEIGHT 2021-01-15 16:17:00 175.3 cm WEIGHT 2021-01-15 16:17:00 58.968 kg WEIGHT 2021-01-16 08:02:00 61 kg HEIGHT 2021-01-15 16:17:00 175.3 cm WEIGHT 2021-01-15 16:17:00 58.968 kg Procedures This patient has no known procedures. Encounters Start End Encounter Admission Attending Care Care Encounter Source Date/Time Date/Time Type Type Clinicians Facility Department ID 2021-03-26 Outpatient VICTOR HUGO GAGNON Surgery [id number] SLE 15:14:11 [facility] 2021-03-16 Emergency [facility] Emergency [id number] 08:21:07 [facility] 2021-04-17 2021-04-17 Outpatient RUTH ANN GAY [facility] [id number] SLE 00:00:00 00:00:00 2021-04-16 2021-04-16 Outpatient VICTOR HUGO BOLANOS [facility] [id number] [id number] SLE 00:00:00 00:00:00 [facility] 2021-04-16 2021-04-16 Outpatient VICTOR HUGO BOLANOS SLE [id number] [id number] SLE 00:00:00 00:00:00 [facility] 2021-03-28 2021-03-28 Outpatient DANIEL BOLANOS [facility] 2040 [id number] SLE 00:00:00 00:00:00 [facility] 2021-03-28 2021-03-28 Outpatient DANIEL BOLANOS [facility] [id number] [id number] SLE 00:00:00 00:00:00 [facility] 2021-03-28 2021-03-28 Outpatient VICTOR HUGO BOLANOS SLE 2040 [id number] SLE 00:00:00 00:00:00 [facility] 2021-03-28 2021-03-28 Outpatient DANIEL BOLANOS SLE 2040 [id number] SLE 00:00:00 00:00:00 [facility] 2021-03-26 2021-03-26 Outpatient RUTH ANN [facility] [id number] SLE 17:47:00 23:59:00 2021-03-12 2021-03-12 Outpatient RAMIREZ MALDONADO [facility] [id number] [facility] 14:59:03 16:11:38 [facility] 2021-03-12 2021-03-12 Outpatient EL TALI, [facility] [id number] SLE 09:10:57 09:10:57 MARELY 2021-03-12 2021-03-12 Outpatient EL [facility] [id number] SLE 00:00:00 00:00:00 2021-03-04 2021-03-04 Outpatient EL [facility] [id number] SLE 00:00:00 00:00:00 2021-02-11 2021-02-11 Outpatient RAMIREZ NAVA [facility] [id number] [facility] 12:25:37 15:53:36 [facility] 2021-01-20 2021-01-20 Outpatient [facility] [id number] [facility] 00:00:00 23:59:00 [facility] 2021-01-15 2021-01-15 Emergency ER [facility] Emergency [id number] [facility] 16:04:00 16:04:00 Results Test Description Test Time Test Comments Results Result Comments Source ALPHA FETOPROTEIN (AFP), TUMOR MARKER 2021-03-12 19:32:15 Test Item Value Reference Range Interpretation Comme nts ALPHA-FETOPROTEIN (BEAKER) (test code = 1094) 37.5 ng/mL <10.0 H Reconstructive Surgeon ID - DBBASIC METABOLIC [id number] 11:37:45 Test Item Value Reference Range Interpretation Comments SODIUM (BEAKER) 137 meq/L 136-145 (test code = 381) POTASSIUM (BEAKER) 3.8 meq/L 3.5-5.1 (test code = 379) CHLORIDE (BEAKER) 100 meq/L 98-107 (test code = 382) CO2 (BEAKER) (test 29 meq/L 22-29 code = 355) BLOOD UREA NITROGEN 22 mg/dL 7-21 H (BEAKER) (test code = 354) CREATININE (BEAKER) 1.26 mg/dL 0.57-1.25 H (test code = 358) GLUCOSE RANDOM 345 mg/dL 70-105 H (BEAKER) (test code = 652) CALCIUM (BEAKER) 9.5 mg/dL 8.4-10.2 (test code = 697) EGFR (BEAKER) (test 69 mL/min/1.73 ESTIMA MALA GFR IS code = 1092) sq m NOT ACCURATE CREATININE CLEARANCE IN PREDICTING GLOMERULAR FILTRATION RATE . ESTIMATED GFR I S NOT APPLICABLE FOR DIALYSIS PATIEN TS. Reconstructive Surgeon ID - CYRUSHEPATIC FUNCTION [id number] 11:37:45 Test Item Value Reference Range Interpretation Comments TOTAL PROTEIN (BEAKER) (test code = 9.0 gm/dL 6.0-8.3 H 770) ALBUMIN (BEAKER) (test code = 1145) 2.8 g/dL 3.5-5.0 L BILIRUBIN TOTAL (BEAKER) (test code 0.9 mg/dL 0.2-1.2 = 377) BILIRUBIN DIRECT (BEAKER) (test 0.6 mg/dL 0.1-0.5 H code = 706) ALKALINE PHOSPHATASE (BEAKER) (test 168 U/L 40-150 H code = 346) AST (SGOT) (BEAKER) (test code = 87 U/L 5-34 H 353) ALT (SGPT) (BEAKER) (test code = 58 U/L 6-55 H 347) Reconstructive Surgeon ID - CYRUSPROTHROMBIN [id number] 11:35:06 Test Item Value Reference Range Interpretation Comments PROTIME (BEAKER) 13.6 seconds 11.9-14.2 (test code = 759) INR (BEAKER) (test 1.06 See_Comment [Automat ed message] code = 370) The system [employer] generated this result transmitted ref erence range: <=5.90. The reference range was not used to int erpret this result as normal/abnormal . RECOMMENDED COUMADIN/WARFARIN INR THERAPY RANGESSTANDARD DOSE: 2.0 - 3.0 Includes: PROPHYLAXIS forvenous thrombosis, systemic embolization; TREATMENT for venous thrombosis and/or pulmonary embolus.HIGH RISK: Target INR is 2.5-3.5 for patients with mechanical heart valves.CBC W/PLT COUNT & AUTO DIFFERENTIAL 2021-03-12 11:25:07 Test Item Value Reference Range Interpretation Comments WHITE BLOOD CELL COUNT (BEAKER) 3.4 K/ L 3.5-10.5 L (test code = 775) RED BLOOD CELL COUNT (BEAKER) 4.19 M/ L 4.63-6.08 L (test code = 761) HEMOGLOBIN (BEAKER) (test code = 13.0 GM/DL 13.7-17.5 L 410) HEMATOCRIT (BEAKER) (test code = 39.7 % 40.1-51.0 L 411) MEAN CORPUSCULAR VOLUME (BEAKER) 94.7 fL 79.0-92.2 H (test code = 753) MEAN CORPUSCULAR HEMOGLOBIN 31.0 pg 25.7-32.2 (BEAKER) (test code = 751) MEAN CORPUSCULAR HEMOGLOBIN CONC 32.7 GM/DL 32.3-36.5 (BEAKER) (test code = 752) RED CELL DISTRIBUTION WIDTH 13.2 % 11.6-14.4 (BEAKER) (test code = 412) PLATELET COUNT (BEAKER) (test 137 K/CU MM 150-450 L code = 756) MEAN PLATELET VOLUME (BEAKER) 12.8 fL 9.4-12.4 H (test code = 754) NUCLEATED RED BLOOD CELLS 0 /100 WBC 0-0 (BEAKER) (test code = 413) NEUTROPHILS RELATIVE PERCENT 51 % (BEAKER) (test code = 429) LYMPHOCYTES RELATIVE PERCENT 34 % (BEAKER) (test code = 430) MONOCYTES RELATIVE PERCENT 10 % (BEAKER) (test code = 431) EOSINOPHILS RELATIVE PERCENT 4 % (BEAKER) (test code = 432) BASOPHILS RELATIVE PERCENT 1 % (BEAKER) (test code = 437) NEUTROPHILS ABSOLUTE COUNT 1.73 K/ L 1.78-5.38 L (BEAKER) (test code = 670) LYMPHOCYTES ABSOLUTE COUNT 1.16 K/ L 1.32-3.57 L (BEAKER) (test code = 414) MONOCYTES ABSOLUTE COUNT (BEAKER) 0.33 K/ L 0.30-0.82 (test code = 415) EOSINOPHILS ABSOLUTE COUNT 0.15 K/ L 0.04-0.54 (BEAKER) (test code = 416) BASOPHILS ABSOLUTE COUNT (BEAKER) 0.04 K/ L 0.01-0.08 (test code = 417) IMMATURE GRANULOCYTES-RELATIVE 0 % 0-1 PERCENT (BEAKER) (test code = 2801) BASIC METABOLIC [id number] 11:01:00 Test Item Value Reference Range Interpretation Comments SODIUM (BEAKER) 136 meq/L 136-145 (test code = 381) POTASSIUM (BEAKER) 4.0 meq/L 3.5-5.1 (test code = 379) CHLORIDE (BEAKER) 106 meq/L 98-107 (test code = 382) CO2 (BEAKER) (test 27 meq/L 22-29 code = 355) BLOOD UREA NITROGEN 14 mg/dL 7-21 (BEAKER) (test code = 354) CREATININE (BEAKER) 1.13 mg/dL 0.57-1.25 (test code = 358) GLUCOSE RANDOM 102 mg/dL 70-105 (BEAKER) (test code = 652) CALCIUM (BEAKER) 7.9 mg/dL 8.4-10.2 L (test code = 697) EGFR (BEAKER) (test 79 mL/min/1.73 ESTIMA MALA GFR IS code = 1092) sq m NOT ACCURATE CREATININE CLEARANCE IN PREDICTING GLOMERULAR FILTRATION RATE . ESTIMATED GFR I S NOT APPLICABLE FOR DIALYSIS PATIEN TS. Reconstructive Surgeon ID - PIAYA [id number] 10:51:00 Test Item Value Reference Range Interpretation Comments MAGNESIUM (BEAKER) (test code = 1.4 mg/dL 1.6-2.6 L 627) Reconstructive Surgeon ID - PIAYA [id number] 10:51:00 Test Item Value Reference Range Interpretation Comments PHOSPHORUS (BEAKER) (test code = 2.8 mg/dL 2.3-4.7 604) Reconstructive Surgeon ID - PIAYA LHEPATIC FUNCTION [id number] 10:51:00 Test Item Value Reference Range Interpretation Comments TOTAL PROTEIN (BEAKER) (test code = 6.1 gm/dL 6.0-8.3 770) ALBUMIN (BEAKER) (test code = 1145) 2.2 g/dL 3.5-5.0 L BILIRUBIN TOTAL (BEAKER) (test code 1.5 mg/dL 0.2-1.2 H = 377) BILIRUBIN DIRECT (BEAKER) (test 1.1 mg/dL 0.1-0.5 H code = 706) ALKALINE PHOSPHATASE (BEAKER) (test 118 U/L 40-150 code = 346) AST (SGOT) (BEAKER) (test code = 69 U/L 5-34 H 353) ALT (SGPT) (BEAKER) (test code = 72 U/L 6-55 H 347) Reconstructive Surgeon ID - PIAYA LPOCT-GLUCOSE [id number] 10:44:00 Test Item Value Reference Range Interpretation Comments POC-GLUCOSE METER 124 mg/dL 70-110 H : TESTED A T [facility] 6720 (BEAKER) (test code = [facility], 1538) [id number]: Reconstructive Surgeon/Techni bruno ID = [id number] for Dinh Gregorio POCT-GLUCOSE [id number] 07:46:00 Test Item Value Reference Range Interpretation Comments POC-GLUCOSE METER 74 mg/dL 70-110 : TESTED A T [facility] 6720 (BEAKER) (test code = [facility], 1538) [address]: Reconstructive Surgeon/Techni bruno ID = [id number] for Dinh Ribeiro PROTHROMBIN [id number] 05:49:00 Test Item Value Reference Range Interpretation Comments PROTIME (BEAKER) 16.6 seconds 11.9-14.2 H (test code = 759) INR (BEAKER) (test 1.36 See_Comment [Automat ed message] code = 370) The system [employer] generated this result transmitted ref erence range: <=5.90. The reference range was not used to int erpret this result as normal/abnormal . RECOMMENDED COUMADIN/WARFARIN INR THERAPY RANGESSTANDARD DOSE: 2.0 - 3.0 Includes: PROPHYLAXIS forvenous thrombosis, systemic embolization; TREATMENT for venous thrombosis and/or pulmonary embolus.HIGH RISK: Target INR is 2.5-3.5 for patients with mechanical heart valves.CBC W/PLT COUNT & AUTO DIFFERENTIAL 2021-01-31 05:42:00 Test Item Value Reference Range Interpretation Comments WHITE BLOOD CELL COUNT (BEAKER) 5.6 K/ L 3.5-10.5 (test code = 775) RED BLOOD CELL COUNT (BEAKER) 3.06 M/ L 4.63-6.08 L (test code = 761) HEMOGLOBIN (BEAKER) (test code = 9.7 GM/DL 13.7-17.5 L 410) HEMATOCRIT (BEAKER) (test code = 29.9 % 40.1-51.0 L 411) MEAN CORPUSCULAR VOLUME (BEAKER) 97.7 fL 79.0-92.2 H (test code = 753) MEAN CORPUSCULAR HEMOGLOBIN 31.7 pg 25.7-32.2 (BEAKER) (test code = 751) MEAN CORPUSCULAR HEMOGLOBIN CONC 32.4 GM/DL 32.3-36.5 (BEAKER) (test code = 752) RED CELL DISTRIBUTION WIDTH 13.0 % 11.6-14.4 (BEAKER) (test code = 412) PLATELET COUNT (BEAKER) (test 162 K/CU MM 150-450 code = 756) MEAN PLATELET VOLUME (BEAKER) 10.9 fL 9.4-12.4 (test code = 754) NUCLEATED RED BLOOD CELLS 0 /100 WBC 0-0 (BEAKER) (test code = 413) NEUTROPHILS RELATIVE PERCENT 63 % (BEAKER) (test code = 429) LYMPHOCYTES RELATIVE PERCENT 23 % (BEAKER) (test code = 430) MONOCYTES RELATIVE PERCENT 11 % (BEAKER) (test code = 431) EOSINOPHILS RELATIVE PERCENT 2 % (BEAKER) (test code = 432) BASOPHILS RELATIVE PERCENT 1 % (BEAKER) (test code = 437) NEUTROPHILS ABSOLUTE COUNT 3.50 K/ L 1.78-5.38 (BEAKER) (test code = 670) LYMPHOCYTES ABSOLUTE COUNT 1.30 K/ L 1.32-3.57 L (BEAKER) (test code = 414) MONOCYTES ABSOLUTE COUNT (BEAKER) 0.61 K/ L 0.30-0.82 (test code = 415) EOSINOPHILS ABSOLUTE COUNT 0.12 K/ L 0.04-0.54 (BEAKER) (test code = 416) BASOPHILS ABSOLUTE COUNT (BEAKER) 0.04 K/ L 0.01-0.08 (test code = 417) IMMATURE GRANULOCYTES-RELATIVE 1 % 0-1 PERCENT (BEAKER) (test code = 2801) POCT-GLUCOSE [id number] 21:24:00 Test Item Value Reference Range Interpretation Comments POC-GLUCOSE METER 146 mg/dL 70-110 H : TESTED Lars T [facility] 6720 (BEAKER) (test code = [place], 1538) [address]: Reconstructive Surgeon/Techni bruno ID = [id number] for AN STEPHANIE AMOS POCT-GLUCOSE [id number] 08:44:00 Test Item Value Reference Range Interpretation Comments POC-GLUCOSE METER 114 mg/dL 70-110 H : Notified RN/MD: (BEAKER) (test code = TESTED AT [facility] 3174 6435) [place], [address]: Reconstructive Surgeon/Techni bruno ID = [id number] for Catalina Mendoza BASIC METABOLIC [id number] 07:11:00 Test Item Value Reference Range Interpretation Comments SODIUM (BEAKER) 137 meq/L 136-145 (test code = 381) POTASSIUM (BEAKER) 4.0 meq/L 3.5-5.1 (test code = 379) CHLORIDE (BEAKER) 107 meq/L 98-107 (test code = 382) CO2 (BEAKER) (test 26 meq/L 22-29 code = 355) BLOOD UREA NITROGEN 15 mg/dL 7-21 (BEAKER) (test code = 354) CREATININE (BEAKER) 1.09 mg/dL 0.57-1.25 (test code = 358) GLUCOSE RANDOM 79 mg/dL 70-105 (BEAKER) (test code = 652) CALCIUM (BEAKER) 8.1 mg/dL 8.4-10.2 L (test code = 697) EGFR (BEAKER) (test 82 mL/min/1.73 ESTIMA MALA GFR IS code = 1092) sq m NOT ACCURATE CREATININE CLEARANCE IN PREDICTING GLOMERULAR FILTRATION RATE . ESTIMATED GFR I S NOT APPLICABLE FOR DIALYSIS PATIEN TS. Reconstructive Surgeon ID - MARCEL [id number] 07:11:00 Test Item Value Reference Range Interpretation Comments MAGNESIUM (BEAKER) (test code = 1.5 mg/dL 1.6-2.6 L 627) Reconstructive Surgeon ID - MARCEL [id number] 07:11:00 Test Item Value Reference Range Interpretation Comments PHOSPHORUS (BEAKER) (test code = 3.1 mg/dL 2.3-4.7 604) Reconstructive Surgeon ID - MARCEL MHEPATIC FUNCTION [id number] 07:11:00 Test Item Value Reference Range Interpretation Comments TOTAL PROTEIN (BEAKER) (test code = 6.1 gm/dL 6.0-8.3 770) ALBUMIN (BEAKER) (test code = 1145) 2.2 g/dL 3.5-5.0 L BILIRUBIN TOTAL (BEAKER) (test code 1.8 mg/dL 0.2-1.2 H = 377) BILIRUBIN DIRECT (BEAKER) (test 1.3 mg/dL 0.1-0.5 H code = 706) ALKALINE PHOSPHATASE (BEAKER) (test 125 U/L 40-150 code = 346) AST (SGOT) (BEAKER) (test code = 79 U/L 5-34 H 353) ALT (SGPT) (BEAKER) (test code = 83 U/L 6-55 H 347) Reconstructive Surgeon ID - MARCEL MPROTHROMBIN [id number] 06:53:00 Test Item Value Reference Range Interpretation Comments PROTIME (BEAKER) 16.3 seconds 11.9-14.2 H (test code = 759) INR (BEAKER) (test 1.33 See_Comment [Automat ed message] code = 370) The system [employer] generated this result transmitted ref erence range: <=5.90. The reference range was not used to int erpret this result as normal/abnormal . RECOMMENDED COUMADIN/WARFARIN INR THERAPY RANGESSTANDARD DOSE: 2.0 - 3.0 Includes: PROPHYLAXIS forvenous thrombosis, systemic embolization; TREATMENT for venous thrombosis and/or pulmonary embolus.HIGH RISK: Target INR is 2.5-3.5 for patients with mechanical heart valves.CBC W/PLT COUNT & AUTO DIFFERENTIAL 2021-01-30 06:44:00 Test Item Value Reference Range Interpretation Comments WHITE BLOOD CELL COUNT (BEAKER) 5.7 K/ L 3.5-10.5 (test code = 775) RED BLOOD CELL COUNT (BEAKER) 2.92 M/ L 4.63-6.08 L (test code = 761) HEMOGLOBIN (BEAKER) (test code = 9.2 GM/DL 13.7-17.5 L 410) HEMATOCRIT (BEAKER) (test code = 28.2 % 40.1-51.0 L 411) MEAN CORPUSCULAR VOLUME (BEAKER) 96.6 fL 79.0-92.2 H (test code = 753) MEAN CORPUSCULAR HEMOGLOBIN 31.5 pg 25.7-32.2 (BEAKER) (test code = 751) MEAN CORPUSCULAR HEMOGLOBIN CONC 32.6 GM/DL 32.3-36.5 (BEAKER) (test code = 752) RED CELL DISTRIBUTION WIDTH 13.0 % 11.6-14.4 (BEAKER) (test code = 412) PLATELET COUNT (BEAKER) (test 171 K/CU MM 150-450 code = 756) MEAN PLATELET VOLUME (BEAKER) 10.7 fL 9.4-12.4 (test code = 754) NUCLEATED RED BLOOD CELLS 0 /100 WBC 0-0 (BEAKER) (test code = 413) NEUTROPHILS RELATIVE PERCENT 66 % (BEAKER) (test code = 429) LYMPHOCYTES RELATIVE PERCENT 21 % (BEAKER) (test code = 430) MONOCYTES RELATIVE PERCENT 9 % (BEAKER) (test code = 431) EOSINOPHILS RELATIVE PERCENT 3 % (BEAKER) (test code = 432) BASOPHILS RELATIVE PERCENT 1 % (BEAKER) (test code = 437) NEUTROPHILS ABSOLUTE COUNT 3.76 K/ L 1.78-5.38 (BEAKER) (test code = 670) LYMPHOCYTES ABSOLUTE COUNT 1.18 K/ L 1.32-3.57 L (BEAKER) (test code = 414) MONOCYTES ABSOLUTE COUNT (BEAKER) 0.53 K/ L 0.30-0.82 (test code = 415) EOSINOPHILS ABSOLUTE COUNT 0.14 K/ L 0.04-0.54 (BEAKER) (test code = 416) BASOPHILS ABSOLUTE COUNT (BEAKER) 0.04 K/ L 0.01-0.08 (test code = 417) IMMATURE GRANULOCYTES-RELATIVE 1 % 0-1 PERCENT (BEAKER) (test code = 2801) RAD, CHEST, 1 VIEW, NON [id number] 04:35:00Reason for exam:->shortness of breath. coughShould this be performed at the bedside?->[facility] : 1955 Sex: MFINAL REPORT RAD, CHEST, 1 VIEW, NON DEPT INDICATION: shortness of br eath. cough COMPARISON: Plain radiograph the chest dated 01/22/2021 FINDINGS: Portable frontal view of the chest. IMPRESSION: Support Lines: None. Lungs and pleura: Improved aeration of the bilaterallower lungs with persistent left basilar atelectasis. No large pleural effusion. Low lung volumes. No pneumothorax.Heart and mediastinum: Stable contours. Additional findings: Incompletely visualized gaseous distention of the large bowel in the upper abdomen.. Signed: Christina Garcia Verified Date/Time: 01/30/2021 04:35:08 POCT-GLUCOSE [id number] 22:55:00 Test Item Value Reference Range Interpretation Comments POC-GLUCOSE METER 107 mg/dL 70-110 : TESTED A T [facility] 6720 (MediCard) (test code = [facility], [facility]) [address]: Reconstructive Surgeon/Techni bruno ID = [id number] for [place] LLIAMS, HÉCTOR POCT-GLUCOSE [id number] 15:52:00 Test Item Value Reference Range Interpretation Comments POC-GLUCOSE METER 114 mg/dL 70-110 H : TESTED A T [facility] 6720 (BEAKER) (test code = [facility], 1538) [address]: Reconstructive Surgeon/Techni bruno ID = [id number] for Wi lliams, Areiona POCT-GLUCOSE [id number] 12:13:00 Test Item Value Reference Range Interpretation Comments POC-GLUCOSE METER 92 mg/dL 70-110 : TESTED A T [facility] 6720 (BEAKER) (test code = [facility], 1538) [address]: Reconstructive Surgeon/Techni bruno ID = [id number] for Will iams, Areiona POCT-GLUCOSE [id number] 08:04:00 Test Item Value Reference Range Interpretation Comments POC-GLUCOSE METER 73 mg/dL 70-110 : TESTED A T [facility] 6720 (BEAKER) (test code = [facility], 1538) [address]: Reconstructive Surgeon/Techni bruno ID = [id number] for Will iams, Areiona BASIC METABOLIC [id number] 07:11:00 Test Item Value Reference Range Interpretation Comments SODIUM (BEAKER) 136 meq/L 136-145 (test code = 381) POTASSIUM (BEAKER) 4.2 meq/L 3.5-5.1 (test code = 379) CHLORIDE (BEAKER) 106 meq/L 98-107 (test code = 382) CO2 (BEAKER) (test 25 meq/L 22-29 code = 355) BLOOD UREA NITROGEN 17 mg/dL 7-21 (BEAKER) (test code = 354) CREATININE (BEAKER) 1.24 mg/dL 0.57-1.25 (test code = 358) GLUCOSE RANDOM 93 mg/dL 70-105 (BEAKER) (test code = 652) CALCIUM (BEAKER) 8.0 mg/dL 8.4-10.2 L (test code = 697) EGFR (BEAKER) (test 71 mL/min/1.73 ESTIMA MALA GFR IS code = 1092) sq m NOT ACCURATE CREATININE CLEARANCE IN PREDICTING GLOMERULAR FILTRATION RATE . ESTIMATED GFR I S NOT APPLICABLE FOR DIALYSIS PATIEN TS. Reconstructive Surgeon ID - PIAYA [id number] 07:11:00 Test Item Value Reference Range Interpretation Comments MAGNESIUM (BEAKER) (test code = 1.5 mg/dL 1.6-2.6 L 627) Reconstructive Surgeon ID - HUGH [id number] 07:11:00 Test Item Value Reference Range Interpretation Comments PHOSPHORUS (BEAKER) (test code = 3.5 mg/dL 2.3-4.7 604) Reconstructive Surgeon ID - PIAYA LHEPATIC FUNCTION [id number] 07:11:00 Test Item Value Reference Range Interpretation Comments TOTAL PROTEIN (BEAKER) (test code = 6.2 gm/dL 6.0-8.3 770) ALBUMIN (BEAKER) (test code = 1145) 2.0 g/dL 3.5-5.0 L BILIRUBIN TOTAL (BEAKER) (test code 1.8 mg/dL 0.2-1.2 H = 377) BILIRUBIN DIRECT (BEAKER) (test 1.3 mg/dL 0.1-0.5 H code = 706) ALKALINE PHOSPHATASE (BEAKER) (test 143 U/L 40-150 code = 346) AST (SGOT) (BEAKER) (test code = 95 U/L 5-34 H 353) ALT (SGPT) (BEAKER) (test code = 104 U/L 6-55 H 347) Reconstructive Surgeon ID - HUGH LPROTHROMBIN [id number] 07:00:00 Test Item Value Reference Range Interpretation Comments PROTIME (BEAKER) 15.6 seconds 11.9-14.2 H (test code = 759) INR (BEAKER) (test 1.26 See_Comment [Automat ed message] code = 370) The system [employer] generated this result transmitted ref erence range: <=5.90. The reference range was not used to int erpret this result as normal/abnormal . RECOMMENDED COUMADIN/WARFARIN INR THERAPY RANGESSTANDARD DOSE: 2.0 - 3.0 Includes: PROPHYLAXIS forvenous thrombosis, systemic embolization; TREATMENT for venous thrombosis and/or pulmonary embolus.HIGH RISK: Target INR is 2.5-3.5 for patients with mechanical heart valves.CBC W/PLT COUNT & AUTO DIFFERENTIAL 2021-01-29 06:50:00 Test Item Value Reference Range Interpretation Comments WHITE BLOOD CELL COUNT (BEAKER) 6.8 K/ L 3.5-10.5 (test code = 775) RED BLOOD CELL COUNT (BEAKER) 3.13 M/ L 4.63-6.08 L (test code = 761) HEMOGLOBIN (BEAKER) (test code = 9.9 GM/DL 13.7-17.5 L 410) HEMATOCRIT (BEAKER) (test code = 30.7 % 40.1-51.0 L 411) MEAN CORPUSCULAR VOLUME (BEAKER) 98.1 fL 79.0-92.2 H (test code = 753) MEAN CORPUSCULAR HEMOGLOBIN 31.6 pg 25.7-32.2 (BEAKER) (test code = 751) MEAN CORPUSCULAR HEMOGLOBIN CONC 32.2 GM/DL 32.3-36.5 L (BEAKER) (test code = 752) RED CELL DISTRIBUTION WIDTH 13.3 % 11.6-14.4 (BEAKER) (test code = 412) PLATELET COUNT (BEAKER) (test 180 K/CU MM 150-450 code = 756) MEAN PLATELET VOLUME (BEAKER) 10.7 fL 9.4-12.4 (test code = 754) NUCLEATED RED BLOOD CELLS 0 /100 WBC 0-0 (BEAKER) (test code = 413) NEUTROPHILS RELATIVE PERCENT 65 % (BEAKER) (test code = 429) LYMPHOCYTES RELATIVE PERCENT 21 % (BEAKER) (test code = 430) MONOCYTES RELATIVE PERCENT 10 % (BEAKER) (test code = 431) EOSINOPHILS RELATIVE PERCENT 2 % (BEAKER) (test code = 432) BASOPHILS RELATIVE PERCENT 1 % (BEAKER) (test code = 437) NEUTROPHILS ABSOLUTE COUNT 4.45 K/ L 1.78-5.38 (BEAKER) (test code = 670) LYMPHOCYTES ABSOLUTE COUNT 1.45 K/ L 1.32-3.57 (BEAKER) (test code = 414) MONOCYTES ABSOLUTE COUNT (BEAKER) 0.67 K/ L 0.30-0.82 (test code = 415) EOSINOPHILS ABSOLUTE COUNT 0.15 K/ L 0.04-0.54 (BEAKER) (test code = 416) BASOPHILS ABSOLUTE COUNT (BEAKER) 0.05 K/ L 0.01-0.08 (test code = 417) IMMATURE GRANULOCYTES-RELATIVE 1 % 0-1 PERCENT (BEAKER) (test code = 2801) POCT-GLUCOSE [id number] 20:53:00 Test Item Value Reference Range Interpretation Comments POC-GLUCOSE METER 164 mg/dL 70-110 H : TESTED A T [facility] 6720 (BEAKER) (test code = [facility], 153) [id number]: Reconstructive Surgeon/Techni bruno ID = [id number] for SA PETERSON, CELSA POCT-GLUCOSE [id number] 16:12:00 Test Item Value Reference Range Interpretation Comments POC-GLUCOSE METER 145 mg/dL 70-110 H : TESTED A T [facility] 6720 (BEAKER) (test code = [facility], 1538) [id number]: Reconstructive Surgeon/Techni bruno ID = [id number] for FE LDER, KLAUS POCT-GLUCOSE [id number] 11:49:00 Test Item Value Reference Range Interpretation Comments POC-GLUCOSE METER 175 mg/dL 70-110 H : TESTED A T [facility] 67[address] (BEAKER) (test code = [facility], 1538) [id number]: Reconstructive Surgeon/Techni bruno ID = [id number] for KLAUS DUMONT BASIC METABOLIC [id number] 08:30:00 Test Item Value Reference Range Interpretation Comments SODIUM (BEAKER) 134 meq/L 136-145 L (test code = 381) POTASSIUM (BEAKER) 4.0 meq/L 3.5-5.1 (test code = 379) CHLORIDE (BEAKER) 105 meq/L 98-107 (test code = 382) CO2 (BEAKER) (test 26 meq/L 22-29 code = 355) BLOOD UREA NITROGEN 15 mg/dL 7-21 (BEAKER) (test code = 354) CREATININE (BEAKER) 1.06 mg/dL 0.57-1.25 (test code = 358) GLUCOSE RANDOM 173 mg/dL 70-105 H (BEAKER) (test code = 652) CALCIUM (BEAKER) 8.1 mg/dL 8.4-10.2 L (test code = 697) EGFR (BEAKER) (test 85 mL/min/1.73 ESTIMA MALA GFR IS code = 1092) sq m NOT ACCURATE CREATININE CLEARANCE IN PREDICTING GLOMERULAR FILTRATION RATE . ESTIMATED GFR I S NOT APPLICABLE FOR DIALYSIS PATIEN TS. Reconstructive Surgeon ID - PIAYA [id number] 08:30:00 Test Item Value Reference Range Interpretation Comments MAGNESIUM (BEAKER) (test code = 1.6 mg/dL 1.6-2.6 627) Reconstructive Surgeon ID - PIAYA LHEPATIC FUNCTION [id number] 08:30:00 Test Item Value Reference Range Interpretation Comments TOTAL PROTEIN (BEAKER) (test code = 6.2 gm/dL 6.0-8.3 770) ALBUMIN (BEAKER) (test code = 1145) 2.1 g/dL 3.5-5.0 L BILIRUBIN TOTAL (BEAKER) (test code 2.4 mg/dL 0.2-1.2 H = 377) BILIRUBIN DIRECT (BEAKER) (test 1.7 mg/dL 0.1-0.5 H code = 706) ALKALINE PHOSPHATASE (BEAKER) (test 152 U/L 40-150 H code = 346) AST (SGOT) (BEAKER) (test code = 110 U/L 5-34 H 353) ALT (SGPT) (BEAKER) (test code = 135 U/L 6-55 H 347) Reconstructive Surgeon ID - PIAYA LPOCT-GLUCOSE [id number] 08:05:00 Test Item Value Reference Range Interpretation Comments POC-GLUCOSE METER 161 mg/dL 70-110 H : TESTED A T [facility] 6720 (BEAKER) (test code = [place], 1538) [address]: Reconstructive Surgeon/Techni bruno ID = [id number] for KLAUS DUMONT [id number] 07:47:00 Test Item Value Reference Range Interpretation Comments PREALBUMIN (BEAKER) (test code = 586) 4 mg/dL 14-45 L Reconstructive Surgeon ID - PIAYA LPROTHROMBIN [id number] 07:24:00 Test Item Value Reference Range Interpretation Comments PROTIME (BEAKER) 15.8 seconds 11.9-14.2 H (test code = 759) INR (BEAKER) (test 1.29 See_Comment [Automat ed message] code = 370) The system [employer] generated this result transmitted ref erence range: <=5.90. The reference range was not used to int erpret this result as normal/abnormal . RECOMMENDED COUMADIN/WARFARIN INR THERAPY RANGESSTANDARD DOSE: 2.0 - 3.0 Includes: PROPHYLAXIS forvenous thrombosis, systemic embolization; TREATMENT for venous thrombosis and/or pulmonary embolus.HIGH RISK: Target INR is 2.5-3.5 for patients with mechanical heart valves.CBC W/PLT COUNT & AUTO DIFFERENTIAL 2021-01-28 07:16:00 Test Item Value Reference Range Interpretation Comments WHITE BLOOD CELL COUNT (BEAKER) 6.1 K/ L 3.5-10.5 (test code = 775) RED BLOOD CELL COUNT (BEAKER) 3.37 M/ L 4.63-6.08 L (test code = 761) HEMOGLOBIN (BEAKER) (test code = 10.5 GM/DL 13.7-17.5 L 410) HEMATOCRIT (BEAKER) (test code = 32.8 % 40.1-51.0 L 411) MEAN CORPUSCULAR VOLUME (BEAKER) 97.3 fL 79.0-92.2 H (test code = 753) MEAN CORPUSCULAR HEMOGLOBIN 31.2 pg 25.7-32.2 (BEAKER) (test code = 751) MEAN CORPUSCULAR HEMOGLOBIN CONC 32.0 GM/DL 32.3-36.5 L (BEAKER) (test code = 752) RED CELL DISTRIBUTION WIDTH 13.2 % 11.6-14.4 (BEAKER) (test code = 412) PLATELET COUNT (BEAKER) (test 176 K/CU MM 150-450 code = 756) MEAN PLATELET VOLUME (BEAKER) 10.5 fL 9.4-12.4 (test code = 754) NUCLEATED RED BLOOD CELLS 0 /100 WBC 0-0 (BEAKER) (test code = 413) NEUTROPHILS RELATIVE PERCENT 70 % (BEAKER) (test code = 429) LYMPHOCYTES RELATIVE PERCENT 16 % (BEAKER) (test code = 430) MONOCYTES RELATIVE PERCENT 9 % (BEAKER) (test code = 431) EOSINOPHILS RELATIVE PERCENT 3 % (BEAKER) (test code = 432) BASOPHILS RELATIVE PERCENT 1 % (BEAKER) (test code = 437) NEUTROPHILS ABSOLUTE COUNT 4.27 K/ L 1.78-5.38 (BEAKER) (test code = 670) LYMPHOCYTES ABSOLUTE COUNT 0.99 K/ L 1.32-3.57 L (BEAKER) (test code = 414) MONOCYTES ABSOLUTE COUNT (BEAKER) 0.57 K/ L 0.30-0.82 (test code = 415) EOSINOPHILS ABSOLUTE COUNT 0.15 K/ L 0.04-0.54 (BEAKER) (test code = 416) BASOPHILS ABSOLUTE COUNT (BEAKER) 0.05 K/ L 0.01-0.08 (test code = 417) IMMATURE GRANULOCYTES-RELATIVE 1 % 0-1 PERCENT (BEAKER) (test code = 2801) BLOOD [id number] 07:00:00 Test Item Value Reference Range Interpretation Comments CULTURE (BEAKER) (test No growth in 5 days code = 1095) BLOOD [id number] 07:00:00 Test Item Value Reference Range Interpretation Comments CULTURE (BEAKER) (test No growth in 5 days code = 1095) POCT-GLUCOSE [id number] 22:46:00 Test Item Value Reference Range Interpretation Comments POC-GLUCOSE METER 197 mg/dL 70-110 H : TESTED Lars T [facility] 67[address] (BEAKER) (test code = [place], 1538) [id number]: Reconstructive Surgeon/Techni bruno ID = [id number] for AN STEPHANIE AMOS POCT-GLUCOSE [id number] 16:22:00 Test Item Value Reference Range Interpretation Comments POC-GLUCOSE METER 175 mg/dL 70-110 H : TESTED A T [facility] 6720 (BEAKER) (test code = [place] [facility], 1538) [address]: Reconstructive Surgeon/Techni bruno ID = [id number] for Umer Arboledaa POCT-GLUCOSE [id number] 11:58:00 Test Item Value Reference Range Interpretation Comments POC-GLUCOSE METER 126 mg/dL 70-110 H : TESTED A T [facility] 6720 (BEAKER) (test code = [place] [facility], 1538) [address]: Reconstructive Surgeon/Techni bruno ID = [id number] for Ankur luong, Areiona SARS-COV2/RT-PCR ([facility])2021-01-27 10:41:00 Test Item Value Reference Range Interpretation Comments SARS-COV2/RT-PCR (test Negative Not Detected, Negative, code = 9392915) See external report for linked test SARS-COV-[address] [facility] (test code = 2588076) Negative result for this test determines that SARS-CoV-2 RNA was not present in the specimen above the Limit of Detection (LOD). However, Negative results do not preclude SARS-CoV-2 infection and should not be used as the sole basis for treatment or patient management decisions. Negative results mustbe combined with clinical observations, patient history, and epidemiological information. A false negative result may occur if a specimen is improperly collected, transported or handled. A false negative result should be considered if patient's recent exposures or clinical presentation indicate that COVID-19 (SARS-CoV-2) is likely and diagnostic tests for other causes of illness are negative. Re-testing should be considered in cases of suspected false negatives.The limit of detection for this assay is 800 copies/mL.This SARS CoV-2 test is a real-time RT-PCR test intended for the qualitative detection of nucleic acid from SARS-CoV-2 in a nasopharyngeal swab specimen collected from individuals susp ected of COVID-19 by their healthcare provider.This test has not been Food and Drug Administration (FDA) cleared or approved. This is a modified version of an approved Emergency Use Authorization (EUA) and is in the process of review by the FDA. Once authorized by the FDA, the issued EUA will be effective until the declaration that circumstances exist justifying the authorization of the emergency use of in vitro diagnostic tests for detection and/or diagnosis of COVID-19 is terminated under Section 564(b)(2) of the Act or the EUA is revoked under Section 564(g) of the Act.Fact Sheet for Healthcare Providers:https://www.[employer]/sites/default/files/product/documents/Fact_Shee t_AV_Jiwhrulvk_Rgzd_IOIM-KbH-0.pdfFact Sheet for Healthcare Patients:https://www.[employer].com/sites/default/files/product/ documents/Klpq_Rpnmy_Bwduwmkk_Wspv_CTZN-IaF-0.pdfPerforming Laboratory:[facility], [place] [address]PEKM-MGOWOXD METER 2021-01-27 07:33:00 Test Item Value Reference Range Interpretation Comments POC-GLUCOSE METER 74 mg/dL 70-110 : TESTED A T [facility] 6720 (BEAKER) ([facility], 1538) [address]: Reconstructive Surgeon/Techni bruno ID = [id number] for Will Travon vann BASIC METABOLIC [id number] 07:30:00 Test Item Value Reference Range Interpretation Comments SODIUM (BEAKER) 134 meq/L 136-145 L (test code = 381) POTASSIUM (BEAKER) 3.7 meq/L 3.5-5.1 (test code = 379) CHLORIDE (BEAKER) 104 meq/L 98-107 (test code = 382) CO2 (BEAKER) (test 24 meq/L 22-29 code = 355) BLOOD UREA NITROGEN 13 mg/dL 7-21 (BEAKER) (test code = 354) CREATININE (BEAKER) 0.93 mg/dL 0.57-1.25 (test code = 358) GLUCOSE RANDOM 72 mg/dL 70-105 (BEAKER) (test code = 652) CALCIUM (BEAKER) 7.9 mg/dL 8.4-10.2 L (test code = 697) EGFR (BEAKER) (test 99 mL/min/1.73 ESTIMA MALA GFR IS code = 1092) sq m NOT ACCURATE CREATININE CLEARANCE IN PREDICTING GLOMERULAR FILTRATION RATE . ESTIMATED GFR I S NOT APPLICABLE FOR DIALYSIS PATIEN TS. Reconstructive Surgeon ID - DBSpecimen slightly [id number] 07:26:00 Test Item Value Reference Range Interpretation Comments MAGNESIUM (BEAKER) (test code = 1.4 mg/dL 1.6-2.6 L 627) Reconstructive Surgeon ID - [id number] 07:26:00 Test Item Value Reference Range Interpretation Comments PHOSPHORUS (BEAKER) (test code = 3.1 mg/dL 2.3-4.7 604) Reconstructive Surgeon ID - DBHEPATIC FUNCTION [id number] 07:26:00 Test Item Value Reference Range Interpretation Comments TOTAL PROTEIN (BEAKER) (test code = 6.1 gm/dL 6.0-8.3 770) ALBUMIN (BEAKER) (test code = 1145) 2.1 g/dL 3.5-5.0 L BILIRUBIN TOTAL (BEAKER) (test code 2.8 mg/dL 0.2-1.2 H = 377) BILIRUBIN DIRECT (BEAKER) (test 2.0 mg/dL 0.1-0.5 H code = 706) ALKALINE PHOSPHATASE (BEAKER) (test 133 U/L 40-150 code = 346) AST (SGOT) (BEAKER) (test code = 112 U/L 5-34 H 353) ALT (SGPT) (BEAKER) (test code = 145 U/L 6-55 H 347) Reconstructive Surgeon ID - DBSpecimen slightly ictericPROTHROMBIN TIME/[id number] 07:23:00 Test Item Value Reference Range Interpretation Comments PROTIME (BEAKER) 15.7 seconds 11.9-14.2 H (test code = 759) INR (BEAKER) (test 1.27 See_Comment [Automat ed message] code = 370) The system [employer] generated this result transmitted ref erence range: <=5.90. The reference range was not used to int erpret this result as normal/abnormal . RECOMMENDED COUMADIN/WARFARIN INR THERAPY RANGESSTANDARD DOSE: 2.0 - 3.0 Includes: PROPHYLAXIS forvenous thrombosis, systemic embolization; TREATMENT for venous thrombosis and/or pulmonary embolus.HIGH RISK: Target INR is 2.5-3.5 for patients with mechanical heart valves.CBC W/PLT COUNT & AUTO DIFFERENTIAL 2021-01-27 07:02:00 Test Item Value Reference Range Interpretation Comments WHITE BLOOD CELL COUNT (BEAKER) 6.6 K/ L 3.5-10.5 (test code = 775) RED BLOOD CELL COUNT (BEAKER) 3.18 M/ L 4.63-6.08 L (test code = 761) HEMOGLOBIN (BEAKER) (test code = 10.0 GM/DL 13.7-17.5 L 410) HEMATOCRIT (BEAKER) (test code = 30.5 % 40.1-51.0 L 411) MEAN CORPUSCULAR VOLUME (BEAKER) 95.9 fL 79.0-92.2 H (test code = 753) MEAN CORPUSCULAR HEMOGLOBIN 31.4 pg 25.7-32.2 (BEAKER) (test code = 751) MEAN CORPUSCULAR HEMOGLOBIN CONC 32.8 GM/DL 32.3-36.5 (BEAKER) (test code = 752) RED CELL DISTRIBUTION WIDTH 13.4 % 11.6-14.4 (BEAKER) (test code = 412) PLATELET COUNT (BEAKER) (test 188 K/CU MM 150-450 code = 756) MEAN PLATELET VOLUME (BEAKER) 10.7 fL 9.4-12.4 (test code = 754) NUCLEATED RED BLOOD CELLS 0 /100 WBC 0-0 (BEAKER) (test code = 413) NEUTROPHILS RELATIVE PERCENT 70 % (BEAKER) (test code = 429) LYMPHOCYTES RELATIVE PERCENT 18 % (BEAKER) (test code = 430) MONOCYTES RELATIVE PERCENT 8 % (BEAKER) (test code = 431) EOSINOPHILS RELATIVE PERCENT 2 % (BEAKER) (test code = 432) BASOPHILS RELATIVE PERCENT 1 % (BEAKER) (test code = 437) NEUTROPHILS ABSOLUTE COUNT 4.64 K/ L 1.78-5.38 (BEAKER) (test code = 670) LYMPHOCYTES ABSOLUTE COUNT 1.20 K/ L 1.32-3.57 L (BEAKER) (test code = 414) MONOCYTES ABSOLUTE COUNT (BEAKER) 0.54 K/ L 0.30-0.82 (test code = 415) EOSINOPHILS ABSOLUTE COUNT 0.14 K/ L 0.04-0.54 (BEAKER) (test code = 416) BASOPHILS ABSOLUTE COUNT (BEAKER) 0.03 K/ L 0.01-0.08 (test code = 417) IMMATURE GRANULOCYTES-RELATIVE 1 % 0-1 PERCENT (BEAKER) (test code = 2801) POCT-GLUCOSE [id number] 20:54:00 Test Item Value Reference Range Interpretation Comments POC-GLUCOSE METER 90 mg/dL 70-110 : TESTED A T [facility] 6720 (BEAKER) (test code = [facility], 1538) [address]: Reconstructive Surgeon/Techni bruno ID = [id number] for Catalina Diaz POCT-GLUCOSE [id number] 18:14:00 Test Item Value Reference Range Interpretation Comments POC-GLUCOSE METER 120 mg/dL 70-110 H : TESTED A T [facility] 6720 (BEAKER) (test code = [facility], 1538) [address]: Reconstructive Surgeon/Techni bruno ID = [id number] for RA MOS, ORESTES BASIC METABOLIC [id number] 15:33:00 Test Item Value Reference Range Interpretation Comments SODIUM (BEAKER) 133 meq/L 136-145 L (test code = 381) POTASSIUM (BEAKER) 3.7 meq/L 3.5-5.1 (test code = 379) CHLORIDE (BEAKER) 104 meq/L 98-107 (test code = 382) CO2 (BEAKER) (test 26 meq/L 22-29 code = 355) BLOOD UREA NITROGEN 14 mg/dL 7-21 (BEAKER) (test code = 354) CREATININE (BEAKER) 0.89 mg/dL 0.57-1.25 (test code = 358) GLUCOSE RANDOM 149 mg/dL 70-105 H (BEAKER) (test code = 652) CALCIUM (BEAKER) 8.0 mg/dL 8.4-10.2 L (test code = 697) EGFR (BEAKER) (test 104 mL/min/1.73 ESTIM ATED GFR IS code = 1092) sq m NOT ACCURATE CREATININE CLEARANCE IN PREDICTING GLOMERULAR FILTRATION RATE . ESTIMATED GFR I S NOT APPLICABLE FOR DIALYSIS PATIEN TS. Reconstructive Surgeon ID - [id number] 15:33:00 Test Item Value Reference Range Interpretation Comments MAGNESIUM (BEAKER) (test code = 1.4 mg/dL 1.6-2.6 L 627) Reconstructive Surgeon ID - [id number] 15:33:00 Test Item Value Reference Range Interpretation Comments PHOSPHORUS (BEAKER) (test code = 2.8 mg/dL 2.3-4.7 604) Reconstructive Surgeon ID - DBHEPATIC FUNCTION [id number] 15:33:00 Test Item Value Reference Range Interpretation Comments TOTAL PROTEIN (BEAKER) (test code = 5.9 gm/dL 6.0-8.3 L 770) ALBUMIN (BEAKER) (test code = 1145) 2.1 g/dL 3.5-5.0 L BILIRUBIN TOTAL (BEAKER) (test code 2.2 mg/dL 0.2-1.2 H = 377) BILIRUBIN DIRECT (BEAKER) (test 1.5 mg/dL 0.1-0.5 H code = 706) ALKALINE PHOSPHATASE (BEAKER) (test 130 U/L 40-150 code = 346) AST (SGOT) (BEAKER) (test code = 121 U/L 5-34 H 353) ALT (SGPT) (BEAKER) (test code = 171 U/L 6-55 H 347) Reconstructive Surgeon ID - DBPROTHROMBIN [id number] 15:20:00 Test Item Value Reference Range Interpretation Comments PROTIME (BEAKER) 16.0 seconds 11.9-14.2 H (test code = 759) INR (BEAKER) (test 1.30 See_Comment [Automat ed message] code = 370) The system [employer] generated this result transmitted ref erence range: <=5.90. The reference range was not used to int erpret this result as normal/abnormal . RECOMMENDED COUMADIN/WARFARIN INR THERAPY RANGESSTANDARD DOSE: 2.0 - 3.0 Includes: PROPHYLAXIS forvenous thrombosis, systemic embolization; TREATMENT for venous thrombosis and/or pulmonary embolus.HIGH RISK: Target INR is 2.5-3.5 for patients with mechanical heart valves.CBC W/PLT COUNT & AUTO DIFFERENTIAL 2021-01-26 15:09:00 Test Item Value Reference Range Interpretation Comments WHITE BLOOD CELL COUNT (BEAKER) 6.6 K/ L 3.5-10.5 (test code = 775) RED BLOOD CELL COUNT (BEAKER) 3.01 M/ L 4.63-6.08 L (test code = 761) HEMOGLOBIN (BEAKER) (test code = 9.6 GM/DL 13.7-17.5 L 410) HEMATOCRIT (BEAKER) (test code = 28.6 % 40.1-51.0 L 411) MEAN CORPUSCULAR VOLUME (BEAKER) 95.0 fL 79.0-92.2 H (test code = 753) MEAN CORPUSCULAR HEMOGLOBIN 31.9 pg 25.7-32.2 (BEAKER) (test code = 751) MEAN CORPUSCULAR HEMOGLOBIN CONC 33.6 GM/DL 32.3-36.5 (BEAKER) (test code = 752) RED CELL DISTRIBUTION WIDTH 13.5 % 11.6-14.4 (BEAKER) (test code = 412) PLATELET COUNT (BEAKER) (test 176 K/CU MM 150-450 code = 756) MEAN PLATELET VOLUME (BEAKER) 10.8 fL 9.4-12.4 (test code = 754) NUCLEATED RED BLOOD CELLS 0 /100 WBC 0-0 (BEAKER) (test code = 413) NEUTROPHILS RELATIVE PERCENT 73 % (BEAKER) (test code = 429) LYMPHOCYTES RELATIVE PERCENT 16 % (BEAKER) (test code = 430) MONOCYTES RELATIVE PERCENT 7 % (BEAKER) (test code = 431) EOSINOPHILS RELATIVE PERCENT 3 % (BEAKER) (test code = 432) BASOPHILS RELATIVE PERCENT 0 % (BEAKER) (test code = 437) NEUTROPHILS ABSOLUTE COUNT 4.78 K/ L 1.78-5.38 (BEAKER) (test code = 670) LYMPHOCYTES ABSOLUTE COUNT 1.07 K/ L 1.32-3.57 L (BEAKER) (test code = 414) MONOCYTES ABSOLUTE COUNT (BEAKER) 0.47 K/ L 0.30-0.82 (test code = 415) EOSINOPHILS ABSOLUTE COUNT 0.19 K/ L 0.04-0.54 (BEAKER) (test code = 416) BASOPHILS ABSOLUTE COUNT (BEAKER) 0.02 K/ L 0.01-0.08 (test code = 417) IMMATURE GRANULOCYTES-RELATIVE 1 % 0-1 PERCENT (BEAKER) (test code = 2801) POCT-GLUCOSE [id number] 11:30:00 Test Item Value Reference Range Interpretation Comments POC-GLUCOSE METER 187 mg/dL 70-110 H : TESTED A T [facility] 6720 (BEAKER) (test code = [facility], [facility]) [address]: Reconstructive Surgeon/Techni bruno ID = [id number] for RA MOS, ORESTES POCT-GLUCOSE [id number] 08:55:00 Test Item Value Reference Range Interpretation Comments POC-GLUCOSE METER 134 mg/dL 70-110 H : TESTED A T [facility] 6720 (BEAKER) (test code = [facility], [facility]) [address]: Reconstructive Surgeon/Techni bruno ID = [id number] for RA MOS, ORESTES POCT-GLUCOSE [id number] 21:24:00 Test Item Value Reference Range Interpretation Comments POC-GLUCOSE METER 187 mg/dL 70-110 H : TESTED A T [facility] 6720 (BEAKER) (test code = [facility], [facility]) [address]: Reconstructive Surgeon/Techni bruno ID = [id number] for No rman, Gabino POCT-GLUCOSE [id number] 17:02:00 Test Item Value Reference Range Interpretation Comments POC-GLUCOSE METER 202 mg/dL 70-110 H : TESTED A T [facility] 6720 (BEAKER) (test code = [facility], [facility]) [address]: Reconstructive Surgeon/Techni bruno ID = [id number] for RA MOS, ORESTES POCT-GLUCOSE [id number] 11:38:00 Test Item Value Reference Range Interpretation Comments POC-GLUCOSE METER 193 mg/dL 70-110 H : TESTED A T [facility] 6720 (BEAKER) (test code = [facility], [facility]) [address]: Reconstructive Surgeon/Techni bruno ID = [id number] for RA MOS, ORESTES POCT-GLUCOSE [id number] 07:50:00 Test Item Value Reference Range Interpretation Comments POC-GLUCOSE METER 150 mg/dL 70-110 H : TESTED A T [facility] 6720 (BEAKER) (test code = [facility], [facility]) [address]: Reconstructive Surgeon/Techni bruno ID = [id number] for RA MOS, ORESTES PROTHROMBIN [id number] 01:32:00 Test Item Value Reference Range Interpretation Comments PROTIME (BEAKER) 16.0 seconds 11.9-14.2 H (test code = 759) INR (BEAKER) (test 1.30 See_Comment [Automat ed message] code = 370) The system [employer] generated this result transmitted ref erence range: <=5.90. The reference range was not used to int erpret this result as normal/abnormal . RECOMMENDED COUMADIN/WARFARIN INR THERAPY RANGESSTANDARD DOSE: 2.0 - 3.0 Includes: PROPHYLAXIS forvenous thrombosis, systemic embolization; TREATMENT for venous thrombosis and/or pulmonary embolus.HIGH RISK: Target INR is 2.5-3.5 for patients with mechanical heart valves.[id number] 01:22:00 Test Item Value Reference Range Interpretation Comments MAGNESIUM (BEAKER) (test code = 1.4 mg/dL 1.6-2.6 L 627) Reconstructive Surgeon ID - [id number] 01:22:00 Test Item Value Reference Range Interpretation Comments PHOSPHORUS (BEAKER) (test code = 2.6 mg/dL 2.3-4.7 604) Reconstructive Surgeon ID - CDPBASIC METABOLIC [id number] 01:22:00 Test Item Value Reference Range Interpretation Comments SODIUM (BEAKER) 135 meq/L 136-145 L (test code = 381) POTASSIUM (BEAKER) 3.8 meq/L 3.5-5.1 (test code = 379) CHLORIDE (BEAKER) 105 meq/L 98-107 (test code = 382) CO2 (BEAKER) (test 23 meq/L 22-29 code = 355) BLOOD UREA NITROGEN 18 mg/dL 7-21 (BEAKER) (test code = 354) CREATININE (BEAKER) 0.97 mg/dL 0.57-1.25 (test code = 358) GLUCOSE RANDOM 161 mg/dL 70-105 H (BEAKER) (test code = 652) CALCIUM (BEAKER) 8.2 mg/dL 8.4-10.2 L (test code = 697) EGFR (BEAKER) (test 94 mL/min/1.73 ESTIMA MALA GFR IS code = 1092) sq m NOT ACCURATE CREATININE CLEARANCE IN PREDICTING GLOMERULAR FILTRATION RATE . ESTIMATED GFR I S NOT APPLICABLE FOR DIALYSIS PATIEN TS. Reconstructive Surgeon ID - CDPSpecimen slightly ictericHEPATIC FUNCTION [id number] 01:22:00 Test Item Value Reference Range Interpretation Comments TOTAL PROTEIN (BEAKER) (test code = 5.9 gm/dL 6.0-8.3 L 770) ALBUMIN (BEAKER) (test code = 1145) 2.5 g/dL 3.5-5.0 L BILIRUBIN TOTAL (BEAKER) (test code 3.5 mg/dL 0.2-1.2 H = 377) BILIRUBIN DIRECT (BEAKER) (test 2.6 mg/dL 0.1-0.5 H code = 706) ALKALINE PHOSPHATASE (BEAKER) (test 147 U/L 40-150 code = 346) AST (SGOT) (BEAKER) (test code = 172 U/L 5-34 H 353) ALT (SGPT) (BEAKER) (test code = 248 U/L 6-55 H 347) Reconstructive Surgeon ID - CDPSpecimen slightly ictericCBC W/PLT COUNT & AUTO [id number] 01:03:00 Test Item Value Reference Range Interpretation Comments WHITE BLOOD CELL COUNT (BEAKER) 5.6 K/ L 3.5-10.5 (test code = 775) RED BLOOD CELL COUNT (BEAKER) 2.89 M/ L 4.63-6.08 L (test code = 761) HEMOGLOBIN (BEAKER) (test code = 9.2 GM/DL 13.7-17.5 L 410) HEMATOCRIT (BEAKER) (test code = 27.2 % 40.1-51.0 L 411) MEAN CORPUSCULAR VOLUME (BEAKER) 94.1 fL 79.0-92.2 H (test code = 753) MEAN CORPUSCULAR HEMOGLOBIN 31.8 pg 25.7-32.2 (BEAKER) (test code = 751) MEAN CORPUSCULAR HEMOGLOBIN CONC 33.8 GM/DL 32.3-36.5 (BEAKER) (test code = 752) RED CELL DISTRIBUTION WIDTH 13.6 % 11.6-14.4 (BEAKER) (test code = 412) PLATELET COUNT (BEAKER) (test 174 K/CU MM 150-450 code = 756) MEAN PLATELET VOLUME (BEAKER) 10.5 fL 9.4-12.4 (test code = 754) NUCLEATED RED BLOOD CELLS 0 /100 WBC 0-0 (BEAKER) (test code = 413) NEUTROPHILS RELATIVE PERCENT 72 % (BEAKER) (test code = 429) LYMPHOCYTES RELATIVE PERCENT 15 % (BEAKER) (test code = 430) MONOCYTES RELATIVE PERCENT 10 % (BEAKER) (test code = 431) EOSINOPHILS RELATIVE PERCENT 3 % (BEAKER) (test code = 432) BASOPHILS RELATIVE PERCENT 0 % (BEAKER) (test code = 437) NEUTROPHILS ABSOLUTE COUNT 4.06 K/ L 1.78-5.38 (BEAKER) (test code = 670) LYMPHOCYTES ABSOLUTE COUNT 0.83 K/ L 1.32-3.57 L (BEAKER) (test code = 414) MONOCYTES ABSOLUTE COUNT (BEAKER) 0.54 K/ L 0.30-0.82 (test code = 415) EOSINOPHILS ABSOLUTE COUNT 0.15 K/ L 0.04-0.54 (BEAKER) (test code = 416) BASOPHILS ABSOLUTE COUNT (BEAKER) 0.02 K/ L 0.01-0.08 (test code = 417) IMMATURE GRANULOCYTES-RELATIVE 1 % 0-1 PERCENT (BEAKER) (test code = 2801) POCT-GLUCOSE [id number] 22:46:00 Test Item Value Reference Range Interpretation Comments POC-GLUCOSE METER 138 mg/dL 70-110 H : TESTED A T [facility] 6720 (BEAKER) (test code = [facility], 153) [id number]: Reconstructive Surgeon/Techni bruno ID = [id number] for Catalina Zamudio HEMOGLOBIN AND [id number] 18:43:00 Test Item Value Reference Range Interpretation Comments HEMOGLOBIN (BEAKER) (test code = 9.0 GM/DL 13.7-17.5 L 410) HEMATOCRIT (BEAKER) (test code = 26.6 % 40.1-51.0 L 411) Reconstructive Surgeon ID - [id number]-GLUCOSE [id number] 18:22:00 Test Item Value Reference Range Interpretation Comments POC-GLUCOSE METER 144 mg/dL 70-110 H : TESTED A T [facility] 6720 (BEAKER) (test code = [facility], 153) [id number]: Reconstructive Surgeon/Techni bruno ID = [id number] for Ethel Cori salazar ANTI-MITOCHONDRIAL AB, REFLEX TO [id number] 14:01:00 Test Item Value Reference Range Interpretation Comments SCAN RESULT (test code = 4571241) HEMOGLOBIN AND [id number] 13:04:00 Test Item Value Reference Range Interpretation Comments HEMOGLOBIN (BEAKER) (test code = 8.6 GM/DL 13.7-17.5 L 410) HEMATOCRIT (BEAKER) (test code = 25.9 % 40.1-51.0 L 411) Reconstructive Surgeon ID - [id number]-GLUCOSE [id number] 12:16:00 Test Item Value Reference Range Interpretation Comments POC-GLUCOSE METER 109 mg/dL 70-110 : TESTED A T [facility] 6720 (BEAKER) (test code = [place], 1538) [id number]: Reconstructive Surgeon/Techni bruno ID = [id number] for Cori Kaur BLOOD [id number] 09:00:00 Test Item Value Reference Range Interpretation Comments CULTURE (BEAKER) (test No growth in 5 days code = 1095) BLOOD [id number] 09:00:00 Test Item Value Reference Range Interpretation Comments CULTURE (BEAKER) (test No growth in 5 days code = 1095) [id number] 07:10:00 Test Item Value Reference Range Interpretation Comments PHOSPHORUS (BEAKER) (test code = 1.5 mg/dL 2.3-4.7 LL 604) Reconstructive Surgeon ID - PIAYA [id number] 07:04:00 Test Item Value Reference Range Interpretation Comments MAGNESIUM (BEAKER) (test code = 1.9 mg/dL 1.6-2.6 627) Reconstructive Surgeon ID - PIAYA LCOMPREHENSIVE METABOLIC [id number] 07:04:00 Test Item Value Reference Range Interpretation Comments TOTAL PROTEIN 6.2 gm/dL 6.0-8.3 (BEAKER) (test code = 770) ALBUMIN (BEAKER) 2.9 g/dL 3.5-5.0 L (test code = 1145) ALKALINE PHOSPHATASE 159 U/L 40-150 H (BEAKER) (test code = 346) BILIRUBIN TOTAL 4.2 mg/dL 0.2-1.2 H (BEAKER) (test code = 377) SODIUM (BEAKER) (test 136 meq/L 136-145 code = 381) POTASSIUM (BEAKER) 3.8 meq/L 3.5-5.1 (test code = 379) CHLORIDE (BEAKER) 103 meq/L 98-107 (test code = 382) CO2 (BEAKER) (test 27 meq/L 22-29 code = 355) BLOOD UREA NITROGEN 22 mg/dL 7-21 H (BEAKER) (test code = 354) CREATININE (BEAKER) 1.01 mg/dL 0.57-1.25 (test code = 358) GLUCOSE RANDOM 98 mg/dL 70-105 (BEAKER) (test code = 652) CALCIUM (BEAKER) 8.6 mg/dL 8.4-10.2 (test code = 697) AST (SGOT) (BEAKER) 278 U/L 5-34 H (test code = 353) ALT (SGPT) (BEAKER) 357 U/L 6-55 H (test code = 347) EGFR (BEAKER) (test 90 mL/min/1.73 ESTIMA MALA GFR IS code = 1092) sq m NOT ACCURATE CREATININE CLEARANCE IN PREDICTING GLOMERULAR FILTRATION RATE . ESTIMATED GFR I S NOT APPLICABLE FOR DIALYSIS PATIEN TS. Reconstructive Surgeon ID - HUGH ESPINALpecimen slightly ictericHEPATIC FUNCTION [id number] 07:04:00 Test Item Value Reference Range Interpretation Comments TOTAL PROTEIN (BEAKER) (test code = 6.2 gm/dL 6.0-8.3 770) ALBUMIN (BEAKER) (test code = 1145) 2.9 g/dL 3.5-5.0 L BILIRUBIN TOTAL (BEAKER) (test code 4.2 mg/dL 0.2-1.2 H = 377) BILIRUBIN DIRECT (BEAKER) (test 3.0 mg/dL 0.1-0.5 H code = 706) ALKALINE PHOSPHATASE (BEAKER) (test 159 U/L 40-150 H code = 346) AST (SGOT) (BEAKER) (test code = 278 U/L 5-34 H 353) ALT (SGPT) (BEAKER) (test code = 357 U/L 6-55 H 347) Reconstructive Surgeon ID - HUGH Alatorre slightly ictericPROTHROMBIN TIME/[id number] 06:50:00 Test Item Value Reference Range Interpretation Comments PROTIME (BEAKER) 15.0 seconds 11.9-14.2 H (test code = 759) INR (BEAKER) (test 1.20 See_Comment [Automat ed message] code = 370) The system whic h generated this result transmitted ref erence range: <=5.90. The reference range was not used to int erpret this result as normal/abnormal . RECOMMENDED COUMADIN/WARFARIN INR THERAPY RANGESSTANDARD DOSE: 2.0 - 3.0 Includes: PROPHYLAXIS forvenous thrombosis, systemic embolization; TREATMENT for venous thrombosis and/or pulmonary embolus.HIGH RISK: Target INR is 2.5-3.5 for patients with mechanical heart valves.CALCIUM, [id number] 06:46:00 Test Item Value Reference Range Interpretation Comments CALCIUM IONIZED (BEAKER) (test 1.18 mmol/L 1.12-1.27 code = 698) PH, BLOOD (BEAKER) (test code = 7.42 1810) CBC W/PLT COUNT & AUTO [id number] 06:37:00 Test Item Value Reference Range Interpretation Comments WHITE BLOOD CELL COUNT (BEAKER) 6.1 K/ L 3.5-10.5 (test code = 775) RED BLOOD CELL COUNT (BEAKER) 2.90 M/ L 4.63-6.08 L (test code = 761) HEMOGLOBIN (BEAKER) (test code = 9.3 GM/DL 13.7-17.5 L 410) HEMATOCRIT (BEAKER) (test code = 27.6 % 40.1-51.0 L 411) MEAN CORPUSCULAR VOLUME (BEAKER) 95.2 fL 79.0-92.2 H (test code = 753) MEAN CORPUSCULAR HEMOGLOBIN 32.1 pg 25.7-32.2 (BEAKER) (test code = 751) MEAN CORPUSCULAR HEMOGLOBIN CONC 33.7 GM/DL 32.3-36.5 (BEAKER) (test code = 752) RED CELL DISTRIBUTION WIDTH 13.6 % 11.6-14.4 (BEAKER) (test code = 412) PLATELET COUNT (BEAKER) (test 178 K/CU MM 150-450 code = 756) MEAN PLATELET VOLUME (BEAKER) 10.6 fL 9.4-12.4 (test code = 754) NUCLEATED RED BLOOD CELLS 0 /100 WBC 0-0 (BEAKER) (test code = 413) NEUTROPHILS RELATIVE PERCENT 73 % (BEAKER) (test code = 429) LYMPHOCYTES RELATIVE PERCENT 14 % (BEAKER) (test code = 430) MONOCYTES RELATIVE PERCENT 10 % (BEAKER) (test code = 431) EOSINOPHILS RELATIVE PERCENT 2 % (BEAKER) (test code = 432) BASOPHILS RELATIVE PERCENT 0 % (BEAKER) (test code = 437) NEUTROPHILS ABSOLUTE COUNT 4.43 K/ L 1.78-5.38 (BEAKER) (test code = 670) LYMPHOCYTES ABSOLUTE COUNT 0.84 K/ L 1.32-3.57 L (BEAKER) (test code = 414) MONOCYTES ABSOLUTE COUNT (BEAKER) 0.63 K/ L 0.30-0.82 (test code = 415) EOSINOPHILS ABSOLUTE COUNT 0.11 K/ L 0.04-0.54 (BEAKER) (test code = 416) BASOPHILS ABSOLUTE COUNT (BEAKER) 0.00 K/ L 0.01-0.08 L (test code = 417) IMMATURE GRANULOCYTES-RELATIVE 1 % 0-1 PERCENT (BEAKER) (test code = 2801) POCT-GLUCOSE [id number] 05:56:00 Test Item Value Reference Range Interpretation Comments POC-GLUCOSE METER 95 mg/dL 70-110 : TESTED A T [facility] 6720 (BEAKER) (test code = BILL Jones [facility], 1538) [id number]: Reconstructive Surgeon/Techni bruno ID = [id number] for GONZÁLEZ Jones STEPHANIE CT, [id number] 23:31:00No oral contrast necessaryUnlisted Reason for Exam - Click Yes and Enter Reason Below->YesUnlisted Reason for Exam->recent HCC rupture, new drop in hgbWill this procedure require oral contrast?->No [facility] 1955 Sex: MFINAL REPORT CT, ABDOMEN \\T\\ PELVIS, WITH IV CONTRAST CLINICAL HISTOR Y: Unlisted Reason for Examrecent HCC rupture, new drop in hgb TECHNIQUE: Multiple axial images of the abdomen and pelvis were performed after the uncomplicated administration of IV contrast. Coronal and sagittal reformats obtained. Oral contrast was not administered. This exam was performed according to our departmental dose-optimization program, which includes automated exposure control, adjustmentof the mA and/or kV according to patient size and/or use of the iterative reconstruction technique. COMPARISON: 01/17/2021. FINDINGS:Small bilateral pleural effusions and basilar pulmonary consolidations Interval development of small volume pneumoperitoneum. Complex fluid compatible with hemoperitoneumis reduced in volume compared to prior examination. Right subphrenic complex collection without organized wall measures approximately 8.9 x 2.4 x 7.3 cm and contains areas of trapped gas which can be seen with Gelfoam but nonspecific in appearance. No active contrast extravasation. There is intermediate density fluid along the right liver lobe margin. There is edema and thickening of the anterior lateral abdominal wall, greater on the right. Anterior abdominal surgical ludy and right subphrenic sutures are present. Right liver lobe hypoattenuation with infiltrating margins and nodular liver contour again noted. Mild extrahepatic biliary ductal dilatation. Cholecystectomy clips present. Spleen, kidneys, adrenal glands and pancreas are unremarkable. No evidence of bowel obstruction. Urinary bladder is moderately distended. The appendix is not identified. Small hiatal hernia. No abdominal aorticaneurysm. Anasarca noted. There are degenerative changes of the spine. IMPRESSION:Small volume pneumoperitoneum likely from recent surgery but hollow viscus perforation cannot be excluded. Reduced volume of hemoperitoneum status post liver lesion rupture. Minimal complex intermediate density fluid with trapped gas adjacent to the liver, and complex fluid within the paracolic gutters and layering within the pelvis likely subacute hemoperitoneum without evidence of active contrast extravasation. However, slow flow hemorrhage may be inconspicuous. Right liver lobe subcapsular hypoenhancement with theinfiltrating margins and scattered low-density liver lesions likely reflect posttreatment changes ofliver lesion. Small bilateral pleural effusions and basilar consolidations suggestive of atelectasis. Signed: Luis Antonio Mullen MDReport Verified Date/Time: 01/23/2021 23:31:29 Electronically signedby: LUIS ANTONIO MULLEN MD on 01/23/2021 11:31 PMPOCT-GLUCOSE [id number] 21:21:00 Test Item Value Reference Range Interpretation Comments POC-GLUCOSE METER 122 mg/dL 70-110 H : TESTED A T [facility] 6720 (BEAKER) (test code = BILL Jones [facility], 1538) [id number]: Reconstructive Surgeon/Techni bruno ID = [id number] for AN STEPHANIE AMOS CBC (HEMOGRAM ONLY)2021-01-23 18:41:00 Test Item Value Reference Range Interpretation Comments WHITE BLOOD CELL COUNT (BEAKER) 5.9 K/ L 3.5-10.5 (test code = 775) RED BLOOD CELL COUNT (BEAKER) 2.59 M/ L 4.63-6.08 L (test code = 761) HEMOGLOBIN (BEAKER) (test code = 8.3 GM/DL 13.7-17.5 L 410) HEMATOCRIT (BEAKER) (test code = 24.3 % 40.1-51.0 L 411) MEAN CORPUSCULAR VOLUME (BEAKER) 93.8 fL 79.0-92.2 H (test code = 753) MEAN CORPUSCULAR HEMOGLOBIN 32.0 pg 25.7-32.2 (BEAKER) (test code = 751) MEAN CORPUSCULAR HEMOGLOBIN CONC 34.2 GM/DL 32.3-36.5 (BEAKER) (test code = 752) RED CELL DISTRIBUTION WIDTH 13.2 % 11.6-14.4 (BEAKER) (test code = 412) PLATELET COUNT (BEAKER) (test 178 K/CU MM 150-450 code = 756) MEAN PLATELET VOLUME (BEAKER) 10.6 fL 9.4-12.4 (test code = 754) NUCLEATED RED BLOOD CELLS 0 /100 WBC 0-0 (BEAKER) (test code = 413) POCT-GLUCOSE [id number] 18:06:00 Test Item Value Reference Range Interpretation Comments POC-GLUCOSE METER 149 mg/dL 70-110 H : TESTED A T [facility] 6720 (BEAKER) (test code = BILL Jones [facility], 1538) [id number]: Reconstructive Surgeon/Techni bruno ID = [id number] for Ethel martin Aleciadionne TISSUE [id number] 17:34:00Surgical Pathology Report Case: [id number] Authorizing Provider: Tho Nava MD Collected: 01/20/2021 03:36 PM Ordering Location: [facility] PERIOPERATIVE Received: 01/21/2021 07:13 AM SERVICES Pathologist: Kiel Muñiz MD Specimens: A) - Liver, SEGMENT 6 MASS, LIVER B) -Gallbladder, GALLBLADDER A. LIVER, SEGMENT 6,PARTIAL RESECTION (S/P TACE, 01/15/21 ): - HEPATOCELLULAR CARCINOMA, MODERATELY DIFFERENTIATED - TUMOR MEASURES 5.5 CM IN GREATEST DIMENSION - EMBOLIC MICROSPHERES AND THERAPY RELATED CHANGES - TUMOR VIABILITY: ~40% - NO MICROSCOPIC OR MACROSCOPIC VASCULAR INVASION SEEN - NO PERINEURAL INVASION SEEN - PARENCHYMAL MARGIN, NEGATIVE FOR TUMOR - BACKGROUND LIVER WITH CIRRHOSIS - PATHOLOGIC STAGING: [id number]. GALLBLADDER, DONOR, CHOLECYSTECTOMY: - CHRONIC CHOLECYSTITIS WITH CHOLELITHIASIS- CHOLESTEROLOSIS - NEGATIVE FOR DYSPLASIA OR MALIGNANCY Signing Pathologist Direct Phone Line: [phone] signed by Kiel Muñiz MD on 01/23/2021 at 5:34 PMHEPATOCELLULAR CARCINOMA (HEPATOCELLULAR CARCINOMA: HEPATIC RESECTION (NOTE A) - All Specimens)8th Edition - Protocol posted: 08/02/2019SPECIMEN Procedure: Partial hepatectomy : Minor hepatectomy (less than 3 segments) TUMOR Histologic Type: Hepatocellular carcinoma Histologic Grade: G2: Moderately differentiated Tumor Focality: Solitary TUMOR CHARACTERISTICS: Tumor Site: Right lobe Tumor Size: Greatest dimension of viable tumor (Centimeters): difficult to assess due to discontinuous foci of tumor cm Additional Dimension (Centimeters): 5.5 cm Additional Dimension (Centimeters): 4 cm Greatest Dimension of Tumor on Gross Exam (Centimeters): 2.6 cm Treatment Effect: Incomplete necrosis (viable tumor present) Percentage Tumor Necrosis: 60 % Tumor Extension: Tumor involves (perforates) visceral peritoneum Vascular Invasion: Not identified Perineural Invasion: Not identified MARGINS Parenchymal Margin: Uninvolved by invasive carcinoma Distance of Invasive Carcinoma from Margin: 3.6 cmLYMPH NODES Regional Lymph Nodes: No lymph nodes submitted or found PATHOLOGIC STAGE CLASSIFICATION(pTNM, AJCC 8th Edition) TNM Descriptors: y (post-treatment) Primary Tumor (pT): pT1b Regional Lymph Nodes (pN): pNX ADDITIONAL FINDINGS Additional Findings: Cirrhosis [id number] tumor A. LiverB. GallbladderA. Received fresh labeled the patient's name, accession number and "segment 6 mass, liver" is a 97 g, 7.0 x 7.4 x 4.5 cm previously disrupted partial hepatectomy in aggregate. The capsule is de luna-red, predominantly smooth and displays multiple areas of disruption andlacerations ranging from 1.5-5.0 cm in greatest dimension. Sectioning reveals a 5.5 x 4.0 x 2.6 cm de luna-yellow, focally hemorrhagic, variegated, previously diffusely disrupted mass that is 0.1 cm from the capsule and 3.6 cm from the nearest resection margin. The remaining uninvolved liver parenchyma is de luna-brown, heterogeneous and displays micronodularity. Finance And Administration Manager sections are submitted as follows:Ink codeResection margin: BlackSection lxzgW4-U6-nszi at area of pbhdfwflzdY2-B9-ubghF9-resection margin and uninvolved liverB. Received in formalin labeled the patient's name, accession number and "gallbladder" is a 10.5 x 3.0 x 2.5 cm intact gallbladder with a 0.2 cm in length by 0.2 cm in jose meter attached cystic duct. The serosa is purple-green, smooth and hyperemic. The specimen is opened to reveal approximately 15 mL of yellow bile and a 0.4 x 0.3 x 0.3 cm yellow calculus lodged at the fundus. There are no calculi lodged within the cystic duct. The mucosa is green, trabeculated, displays an abundant amount of yellow stippling and multiple yellow, polypoid structures ranging from 0.2-0.4 cm in greatest dimension. The wall measures up to 0.2 cm thick. Finance And Administration Manager sections are submitted as follows:Ink codeCystic duct margin: BlueLiver bed: BlackSection codeB1-cystic duct margin and gallbladder neckB2- polypoid structuresPilar ALFRED Drake, HT (ASCP)Performed.POCT-GLUCOSE METER 2021-01-23 11:57:00 Test Item Value Reference Range Interpretation Comments POC-GLUCOSE METER 176 mg/dL 70-110 H : TESTED A T [facility] 6720 (BEAKER) (test code = [place], 1538) [id number]: Reconstructive Surgeon/Techni bruno ID = [id number] for Cori Kaur HEMOGLOBIN AND [id number] 10:36:00 Test Item Value Reference Range Interpretation Comments HEMOGLOBIN (BEAKER) (test code = 6.6 GM/DL 13.7-17.5 L 410) HEMATOCRIT (BEAKER) (test code = 19.8 % 40.1-51.0 L 411) Reconstructive Surgeon ID - [id number] METABOLIC [id number] 06:53:00 Test Item Value Reference Range Interpretation Comments TOTAL PROTEIN 6.4 gm/dL 6.0-8.3 (BEAKER) (test code = 770) ALBUMIN (BEAKER) 2.9 g/dL 3.5-5.0 L (test code = 1145) ALKALINE PHOSPHATASE 193 U/L 40-150 H (BEAKER) (test code = 346) BILIRUBIN TOTAL 2.8 mg/dL 0.2-1.2 H (BEAKER) (test code = 377) SODIUM (BEAKER) (test 133 meq/L 136-145 L code = 381) POTASSIUM (BEAKER) 4.2 meq/L 3.5-5.1 (test code = 379) CHLORIDE (BEAKER) 99 meq/L 98-107 (test code = 382) CO2 (BEAKER) (test 26 meq/L 22-29 code = 355) BLOOD UREA NITROGEN 39 mg/dL 7-21 H (BEAKER) (test code = 354) CREATININE (BEAKER) 1.38 mg/dL 0.57-1.25 H (test code = 358) GLUCOSE RANDOM 161 mg/dL 70-105 H (BEAKER) (test code = 652) CALCIUM (BEAKER) 8.5 mg/dL 8.4-10.2 (test code = 697) AST (SGOT) (BEAKER) 622 U/L 5-34 H (test code = 353) ALT (SGPT) (BEAKER) 616 U/L 6-55 H (test code = 347) EGFR (BEAKER) (test 63 mL/min/1.73 ESTIMA MALA GFR IS code = 1092) sq m NOT ACCURATE CREATININE CLEARANCE IN PREDICTING GLOMERULAR FILTRATION RATE . ESTIMATED GFR I S NOT APPLICABLE FOR DIALYSIS PATIEN TS. Reconstructive Surgeon ID - MARCEL [id number] 06:53:00 Test Item Value Reference Range Interpretation Comments MAGNESIUM (BEAKER) (test code = 1.9 mg/dL 1.6-2.6 627) Reconstructive Surgeon ID - MARCEL [id number] 06:53:00 Test Item Value Reference Range Interpretation Comments PHOSPHORUS (BEAKER) (test code = 1.8 mg/dL 2.3-4.7 L 604) Reconstructive Surgeon ID - MARCEL MURIC [id number] 06:53:00 Test Item Value Reference Range Interpretation Comments URIC ACID (BEAKER) (test code = 6.2 mg/dL 2.6-7.2 773) Reconstructive Surgeon ID - MARCEL MHEPATIC FUNCTION [id number] 06:53:00 Test Item Value Reference Range Interpretation Comments TOTAL PROTEIN (BEAKER) (test code = 6.4 gm/dL 6.0-8.3 770) ALBUMIN (BEAKER) (test code = 1145) 2.9 g/dL 3.5-5.0 L BILIRUBIN TOTAL (BEAKER) (test code 2.8 mg/dL 0.2-1.2 H = 377) BILIRUBIN DIRECT (BEAKER) (test 2.1 mg/dL 0.1-0.5 H code = 706) ALKALINE PHOSPHATASE (BEAKER) (test 193 U/L 40-150 H code = 346) AST (SGOT) (BEAKER) (test code = 622 U/L 5-34 H 353) ALT (SGPT) (BEAKER) (test code = 616 U/L 6-55 H 347) Reconstructive Surgeon ID - MARCEL MCREATINE KINASE (CK)2021-01-23 06:53:00 Test Item Value Reference Range Interpretation Comments CREATINE KINASE TOTAL (BEAKER) (test 478 U/L 29-200 H code = 380) Reconstructive Surgeon ID - MARCEL MCBC W/PLT COUNT & AUTO [id number] 06:45:00 Test Item Value Reference Range Interpretation Comments WHITE BLOOD CELL COUNT (BEAKER) 6.3 K/ L 3.5-10.5 (test code = 775) RED BLOOD CELL COUNT (BEAKER) 2.19 M/ L 4.63-6.08 L (test code = 761) HEMOGLOBIN (BEAKER) (test code = 7.0 GM/DL 13.7-17.5 L 410) HEMATOCRIT (BEAKER) (test code = 21.5 % 40.1-51.0 L 411) MEAN CORPUSCULAR VOLUME (BEAKER) 98.2 fL 79.0-92.2 H (test code = 753) MEAN CORPUSCULAR HEMOGLOBIN 32.0 pg 25.7-32.2 (BEAKER) (test code = 751) MEAN CORPUSCULAR HEMOGLOBIN CONC 32.6 GM/DL 32.3-36.5 (BEAKER) (test code = 752) RED CELL DISTRIBUTION WIDTH 13.2 % 11.6-14.4 (BEAKER) (test code = 412) PLATELET COUNT (BEAKER) (test 169 K/CU MM 150-450 code = 756) MEAN PLATELET VOLUME (BEAKER) 11.1 fL 9.4-12.4 (test code = 754) NUCLEATED RED BLOOD CELLS 0 /100 WBC 0-0 (BEAKER) (test code = 413) NEUTROPHILS RELATIVE PERCENT 75 % (BEAKER) (test code = 429) LYMPHOCYTES RELATIVE PERCENT 14 % (BEAKER) (test code = 430) MONOCYTES RELATIVE PERCENT 10 % (BEAKER) (test code = 431) EOSINOPHILS RELATIVE PERCENT 0 % (BEAKER) (test code = 432) BASOPHILS RELATIVE PERCENT 0 % (BEAKER) (test code = 437) NEUTROPHILS ABSOLUTE COUNT 4.71 K/ L 1.78-5.38 (BEAKER) (test code = 670) LYMPHOCYTES ABSOLUTE COUNT 0.89 K/ L 1.32-3.57 L (BEAKER) (test code = 414) MONOCYTES ABSOLUTE COUNT (BEAKER) 0.61 K/ L 0.30-0.82 (test code = 415) EOSINOPHILS ABSOLUTE COUNT 0.01 K/ L 0.04-0.54 L (BEAKER) (test code = 416) BASOPHILS ABSOLUTE COUNT (BEAKER) 0.01 K/ L 0.01-0.08 (test code = 417) IMMATURE GRANULOCYTES-RELATIVE 1 % 0-1 PERCENT (BEAKER) (test code = 2801) B-TYPE NATRIURETIC FACTOR (BNP)2021-01-23 06:35:00 Test Item Value Reference Range Interpretation Comments B-TYPE NATRIURETIC PEPTIDE (BEAKER) 96 pg/mL 0-100 (test code = 700) Reconstructive Surgeon ID - MARCEL MPROTHROMBIN TIME/[id number] 06:13:00 Test Item Value Reference Range Interpretation Comments PROTIME (BEAKER) 14.9 seconds 11.9-14.2 H (test code = 759) INR (BEAKER) (test 1.18 See_Comment [Automat ed message] code = 370) The system [employer] generated this result transmitted ref erence range: <=5.90. The reference range was not used to int erpret this result as normal/abnormal . RECOMMENDED COUMADIN/WARFARIN INR THERAPY RANGESSTANDARD DOSE: 2.0 - 3.0 Includes: PROPHYLAXIS forvenous thrombosis, systemic embolization; TREATMENT for venous thrombosis and/or pulmonary embolus.HIGH RISK: Target INR is 2.5-3.5 for patients with mechanical heart valves.LACTIC ACID, [id number] 05:59:00 Test Item Value Reference Range Interpretation Comments LACTATE BLOOD VENOUS (2) (BEAKER) 1.06 mmol/L 0.50-2.20 (test code = 2872) Reconstructive Surgeon ID - MARCEL MCALCIUM, [id number] 05:56:00 Test Item Value Reference Range Interpretation Comments CALCIUM IONIZED (BEAKER) (test 1.14 mmol/L 1.12-1.27 code = 698) PH, BLOOD (BEAKER) (test code = 7.40 1810) POCT-GLUCOSE [id number] 21:21:00 Test Item Value Reference Range Interpretation Comments POC-GLUCOSE METER 170 mg/dL 70-110 H : TESTED A T [facility] 6720 (BEAKER) (test code = [place], 1538) [id number]: Reconstructive Surgeon/Techni bruno ID = [id number] for CH UA, JAUN RAD, CHEST, 1 VIEW, NON [id number] 19:29:00Reason for exam:->edemaShould this be performed at the bedside?->Yes [facility] 1955 Sex: MFINAL REPORT AP view of the chest dated 01/22/2021 COMPARISON: January 17, 2021 CLINICAL INFORMATION: edema Comment: Heart is normal in size. Pulmonary vasculature is unremarkable. Interstitial pulmonary disease is seen on the right suggestive vascular congestion. Subsegmental atelectasis is seen in the left lower lobe. The rest of the left lung is clear. Signed: Jesus Vidaleseport Verified Date/Time: 01/22/2021 19:29:59 Reading Location: [facility] B1 C013W Consult Reading Room U/S, RENAL, [id number] 16:15:00Reason for exam:- >akiShould this be performed at the bedside?->Yes [facility] 1955 Sex: MFINAL REPORT TECHNIQUE: Grayscale ultrasound of the kidneys and bladd er. INDICATION: VINNY. COMPARISON: None. FINDINGS: RIGHT KIDNEY: The right kidney measures 10.4 cm. Cortical thickness measures 1.5 cm. No solid mass lesions. No hydronephrosis. Renal artery and vein are patent. LEFT KIDNEY: The left kidney measures 10.7 cm. Cortical thickness measures 1.7 cm. No solidmass lesions. No hydronephrosis. Renal artery and vein are patent. BLADDER: Unremarkable. IMPRESSION:Normal renal ultrasound. No hydronephrosis.. Signed: Calvin Hoffmann MDReport Verified Date/Time: 01/22/2021 16:15:20 POCT-GLUCOSE METER 2021-01-22 16:04:00 Test Item Value Reference Range Interpretation Comments POC-GLUCOSE METER 206 mg/dL 70-110 H : TESTED A T [facility] 6720 (BEAKER) (test code = [place], 1538) [address]: Reconstructive Surgeon/Techni bruno ID = [id number] for Wi lliams, Areiona SODIUM, RANDOM [id number] 13:45:00 Test Item Value Reference Range Interpretation Comments SODIUM URINE (BEAKER) (test code = < meq/L 243) Reference Range: No NormalsOperator ID - CELIA FCREATININE, RANDOM URINE 2021-01-22 13:43:00 Test Item Value Reference Range Interpretation Comments CREATININE URINE (BEAKER) (test 176.9 mg/dL code = 375) Reference Range: No NormalsOperator ID - CELIA FPROTEIN, RANDOM URINE 2021-01-22 13:43:00 Test Item Value Reference Range Interpretation Comments PROTEIN, URINE (BEAKER) (test code = 18 mg/dL 0-14 H 1569) Reconstructive Surgeon ID - CELIA FURINALYSIS W/ [id number] 13:22:00 Test Item Value Reference Range Interpretation Comments COLOR (BEAKER) (test code = 470) [place] CLARITY (BEAKER) (test code = 469) Clear SPECIFIC GRAVITY UA (BEAKER) (test 1.025 1.001-1.035 code = 468) PH UA (BEAKER) (test code = 467) 5.5 5.0-8.0 PROTEIN UA (BEAKER) (test code = 20 mg/dL Negative A 464) GLUCOSE UA (BEAKER) (test code = 30 mg/dL Negative A 365) KETONES UA (BEAKER) (test code = 10 mg/dL Negative A 371) BILIRUBIN UA (BEAKER) (test code = Positive Negative A 462) BLOOD UA (BEAKER) (test code = Negative Negative 461) NITRITE UA (BEAKER) (test code = Negative Negative 465) LEUKOCYTE ESTERASE UA (BEAKER) Negative Negative (test code = 466) UROBILINOGEN UA (BEAKER) (test 8.0 mg/dL 0.2-1.0 H code = 463) RBC UA (BEAKER) (test code = 519) 2 /HPF WBC UA (BEAKER) (test code = 520) 2 /HPF BACTERIA (BEAKER) (test code = Occasional 517) SQUAMOUS EPITHELIAL (BEAKER) (test < /HPF code = 516) HYALINE CASTS (BEAKER) (test code 3 /LPF = 514) CRYSTALS, URINE (BEAKER) (test None Seen code = 1521) SOURCE(BEAKER) (test code = 2795) Reconstructive Surgeon ID - [auto]Reconstructive Surgeon ID - techPOCT-GLUCOSE [id number] 11:24:00 Test Item Value Reference Range Interpretation Comments POC-GLUCOSE METER 199 mg/dL 70-110 H : TESTED A T [facility] 6720 (BEAKER) (test code = [facility], 1538) [id number]: Reconstructive Surgeon/Techni bruno ID = [id number] for Travon Arboleda POCT-GLUCOSE [id number] 08:23:00 Test Item Value Reference Range Interpretation Comments POC-GLUCOSE METER 191 mg/dL 70-110 H : TESTED A T [facility] 6720 (BEAKER) (test code = [facility], 1538) [id number]: Reconstructive Surgeon/Techni bruno ID = [id number] for Umer Arboledaa BLOOD [id number] 08:01:00 Test Item Value Reference Range Interpretation Comments CULTURE (BEAKER) (test No growth in 5 days code = 1095) BLOOD [id number] 08:01:00 Test Item Value Reference Range Interpretation Comments CULTURE (BEAKER) (test No growth in 5 days code = 1095) BASIC METABOLIC [id number] 06:32:00 Test Item Value Reference Range Interpretation Comments SODIUM (BEAKER) 131 meq/L 136-145 L (test code = 381) POTASSIUM (BEAKER) 4.8 meq/L 3.5-5.1 (test code = 379) CHLORIDE (BEAKER) 97 meq/L 98-107 L (test code = 382) CO2 (BEAKER) (test 25 meq/L 22-29 code = 355) BLOOD UREA NITROGEN 43 mg/dL 7-21 H (BEAKER) (test code = 354) CREATININE (BEAKER) 1.72 mg/dL 0.57-1.25 H (test code = 358) GLUCOSE RANDOM 204 mg/dL 70-105 H (BEAKER) (test code = 652) CALCIUM (BEAKER) 8.1 mg/dL 8.4-10.2 L (test code = 697) EGFR (BEAKER) (test 49 mL/min/1.73 ESTIMA MALA GFR IS code = 1092) sq m NOT ACCURATE CREATININE CLEARANCE IN PREDICTING GLOMERULAR FILTRATION RATE . ESTIMATED GFR I S NOT APPLICABLE FOR DIALYSIS PATIEN TS. Reconstructive Surgeon ID - DESHAWN [id number] 06:32:00 Test Item Value Reference Range Interpretation Comments MAGNESIUM (BEAKER) (test code = 2.0 mg/dL 1.6-2.6 627) Reconstructive Surgeon ID - DESHAWN [id number] 06:32:00 Test Item Value Reference Range Interpretation Comments PHOSPHORUS (BEAKER) (test code = 3.2 mg/dL 2.3-4.7 604) Reconstructive Surgeon ID - DESHAWN WHEPATIC FUNCTION [id number] 06:32:00 Test Item Value Reference Range Interpretation Comments TOTAL PROTEIN (BEAKER) (test code = 6.4 gm/dL 6.0-8.3 770) ALBUMIN (BEAKER) (test code = 1145) 2.3 g/dL 3.5-5.0 L BILIRUBIN TOTAL (BEAKER) (test code 3.1 mg/dL 0.2-1.2 H = 377) BILIRUBIN DIRECT (BEAKER) (test 2.2 mg/dL 0.1-0.5 H code = 706) ALKALINE PHOSPHATASE (BEAKER) (test 253 U/L 40-150 H code = 346) AST (SGOT) (BEAKER) (test code = 1880 U/L 5-34 H 353) ALT (SGPT) (BEAKER) (test code = 1091 U/L 6-55 H 347) Reconstructive Surgeon ID - DESHAWN WHIV-1 ANTIGEN WITH HIV-1/2 [id number] 06:31:00 Test Item Value Reference Range Interpretation Comments HIV-1 ANTIGEN WITH HIV 1\\T\\2 Nonreactive Nonreactive ANTIBODY (2) (BEAKER) (test code = 2586) Reconstructive Surgeon ID - HUGH LCBC W/PLT COUNT & AUTO [id number] 05:52:00 Test Item Value Reference Range Interpretation Comments WHITE BLOOD CELL COUNT (BEAKER) 8.7 K/ L 3.5-10.5 (test code = 775) RED BLOOD CELL COUNT (BEAKER) 2.66 M/ L 4.63-6.08 L (test code = 761) HEMOGLOBIN (BEAKER) (test code = 8.3 GM/DL 13.7-17.5 L 410) HEMATOCRIT (BEAKER) (test code = 25.0 % 40.1-51.0 L 411) MEAN CORPUSCULAR VOLUME (BEAKER) 94.0 fL 79.0-92.2 H (test code = 753) MEAN CORPUSCULAR HEMOGLOBIN 31.2 pg 25.7-32.2 (BEAKER) (test code = 751) MEAN CORPUSCULAR HEMOGLOBIN CONC 33.2 GM/DL 32.3-36.5 (BEAKER) (test code = 752) RED CELL DISTRIBUTION WIDTH 12.9 % 11.6-14.4 (BEAKER) (test code = 412) PLATELET COUNT (BEAKER) (test 218 K/CU MM 150-450 code = 756) MEAN PLATELET VOLUME (BEAKER) 11.5 fL 9.4-12.4 (test code = 754) NUCLEATED RED BLOOD CELLS 0 /100 WBC 0-0 (BEAKER) (test code = 413) NEUTROPHILS RELATIVE PERCENT 75 % (BEAKER) (test code = 429) LYMPHOCYTES RELATIVE PERCENT 11 % (BEAKER) (test code = 430) MONOCYTES RELATIVE PERCENT 13 % (BEAKER) (test code = 431) EOSINOPHILS RELATIVE PERCENT 0 % (BEAKER) (test code = 432) BASOPHILS RELATIVE PERCENT 0 % (BEAKER) (test code = 437) NEUTROPHILS ABSOLUTE COUNT 6.53 K/ L 1.78-5.38 H (BEAKER) (test code = 670) LYMPHOCYTES ABSOLUTE COUNT 0.92 K/ L 1.32-3.57 L (BEAKER) (test code = 414) MONOCYTES ABSOLUTE COUNT (BEAKER) 1.16 K/ L 0.30-0.82 H (test code = 415) EOSINOPHILS ABSOLUTE COUNT 0.01 K/ L 0.04-0.54 L (BEAKER) (test code = 416) BASOPHILS ABSOLUTE COUNT (BEAKER) 0.01 K/ L 0.01-0.08 (test code = 417) IMMATURE GRANULOCYTES-RELATIVE 1 % 0-1 PERCENT (BEAKER) (test code = 2801) POCT-GLUCOSE [id number] 21:27:00 Test Item Value Reference Range Interpretation Comments POC-GLUCOSE METER 201 mg/dL 70-110 H : TESTED A T [facility] 6720 (BEAKER) (test code = [facility], 1538) [address]: Reconstructive Surgeon/Techni bruno ID = [id number] for Gabino Waldrop POCT-GLUCOSE [id number] 16:39:00 Test Item Value Reference Range Interpretation Comments POC-GLUCOSE METER 175 mg/dL 70-110 H : TESTED A T [facility] 6720 (BEAKER) (test code = [facility], 1538) [address]: Reconstructive Surgeon/Techni bruno ID = [id number] for Travon Arboleda [id number] 15:20:00 Test Item Value Reference Range Interpretation Comments AMMONIA (BEAKER) (test code = 348) 44 mol/L 18-72 Reconstructive Surgeon ID - leonard ePOCT-GLUCOSE [id number] 12:03:00 Test Item Value Reference Range Interpretation Comments POC-GLUCOSE METER 146 mg/dL 70-110 H : TESTED A T [facility] 6720 (BEAKER) (test code = [facility], 1538) [address]: Reconstructive Surgeon/Techni bruno ID = [id number] for Travon Arboleda BASIC METABOLIC [id number] 08:55:00 Test Item Value Reference Range Interpretation Comments SODIUM (BEAKER) 131 meq/L 136-145 L (test code = 381) POTASSIUM (BEAKER) 4.9 meq/L 3.5-5.1 (test code = 379) CHLORIDE (BEAKER) 99 meq/L 98-107 (test code = 382) CO2 (BEAKER) (test 21 meq/L 22-29 L code = 355) BLOOD UREA NITROGEN 27 mg/dL 7-21 H (BEAKER) (test code = 354) CREATININE (BEAKER) 1.56 mg/dL 0.57-1.25 H (test code = 358) GLUCOSE RANDOM 163 mg/dL 70-105 H (BEAKER) (test code = 652) CALCIUM (BEAKER) 8.2 mg/dL 8.4-10.2 L (test code = 697) EGFR (BEAKER) (test 54 mL/min/1.73 ESTIMA MALA GFR IS code = 1092) sq m NOT ACCURATE CREATININE CLEARANCE IN PREDICTING GLOMERULAR FILTRATION RATE . ESTIMATED GFR I S NOT APPLICABLE FOR DIALYSIS PATIEN TS. Specimen slightly [id number] 08:55:00 Test Item Value Reference Range Interpretation Comments MAGNESIUM (BEAKER) (test code = 1.9 mg/dL 1.6-2.6 627) Reconstructive Surgeon ID - HUGH [id number] 08:55:00 Test Item Value Reference Range Interpretation Comments PHOSPHORUS (BEAKER) (test code = 4.9 mg/dL 2.3-4.7 H 604) Reconstructive Surgeon ID - PIGENE LCOMPREHENSIVE METABOLIC [id number] 08:55:00 Test Item Value Reference Range Interpretation Comments TOTAL PROTEIN 6.9 gm/dL 6.0-8.3 (BEAKER) (test code = 770) ALBUMIN (BEAKER) 2.6 g/dL 3.5-5.0 L (test code = 1145) ALKALINE PHOSPHATASE 132 U/L 40-150 (BEAKER) (test code = 346) BILIRUBIN TOTAL 3.3 mg/dL 0.2-1.2 H (BEAKER) (test code = 377) SODIUM (BEAKER) (test 131 meq/L 136-145 L code = 381) POTASSIUM (BEAKER) 4.9 meq/L 3.5-5.1 (test code = 379) CHLORIDE (BEAKER) 99 meq/L 98-107 (test code = 382) CO2 (BEAKER) (test 21 meq/L 22-29 L code = 355) BLOOD UREA NITROGEN 27 mg/dL 7-21 H (BEAKER) (test code = 354) CREATININE (BEAKER) 1.56 mg/dL 0.57-1.25 H (test code = 358) GLUCOSE RANDOM 163 mg/dL 70-105 H (BEAKER) (test code = 652) CALCIUM (BEAKER) 8.2 mg/dL 8.4-10.2 L (test code = 697) AST (SGOT) (BEAKER) 1833 U/L 5-34 H (test code = 353) ALT (SGPT) (BEAKER) 587 U/L 6-55 H (test code = 347) EGFR (BEAKER) (test 54 mL/min/1.73 ESTIMA MALA GFR IS code = 1092) sq m NOT ACCURATE CREATININE CLEARANCE IN PREDICTING GLOMERULAR FILTRATION RATE . ESTIMATED GFR I S NOT APPLICABLE FOR DIALYSIS PATIEN TS. Reconstructive Surgeon ID - HUGH ESPINALpecimen slightly ictericHEPATIC FUNCTION [id number] 08:55:00 Test Item Value Reference Range Interpretation Comments TOTAL PROTEIN (BEAKER) (test code = 6.9 gm/dL 6.0-8.3 770) ALBUMIN (BEAKER) (test code = 1145) 2.6 g/dL 3.5-5.0 L BILIRUBIN TOTAL (BEAKER) (test code 3.3 mg/dL 0.2-1.2 H = 377) BILIRUBIN DIRECT (BEAKER) (test 2.5 mg/dL 0.1-0.5 H code = 706) ALKALINE PHOSPHATASE (BEAKER) (test 132 U/L 40-150 code = 346) AST (SGOT) (BEAKER) (test code = 1833 U/L 5-34 H 353) ALT (SGPT) (BEAKER) (test code = 587 U/L 6-55 H 347) Reconstructive Surgeon ID - HUGH Alatorre slightly ictericPOCT-GLUCOSE [id number] 08:02:00 Test Item Value Reference Range Interpretation Comments POC-GLUCOSE METER 158 mg/dL 70-110 H : TESTED A T [facility] 67[facility] (BEAKER) (test code = [place], 1538) [address]: Reconstructive Surgeon/Techni bruno ID = [id number] for Travon Arboleda PROTHROMBIN [id number] 05:34:00 Test Item Value Reference Range Interpretation Comments PROTIME (BEAKER) 14.4 seconds 11.9-14.2 H (test code = 759) INR (BEAKER) (test 1.14 See_Comment [Automat ed message] code = 370) The system [employer] generated this result transmitted ref erence range: <=5.90. The reference range was not used to int erpret this result as normal/abnormal . RECOMMENDED COUMADIN/WARFARIN INR THERAPY RANGESSTANDARD DOSE: 2.0 - 3.0 Includes: PROPHYLAXIS forvenous thrombosis, systemic embolization; TREATMENT for venous thrombosis and/or pulmonary embolus.HIGH RISK: Target INR is 2.5-3.5 for patients with mechanical heart valves.POCT-GLUCOSE [id number] 05:29:00 Test Item Value Reference Range Interpretation Comments POC-GLUCOSE METER 162 mg/dL 70-110 H : TESTED [facility] [address] (BEAKER) (test code = [place], 1538) [address]: Reconstructive Surgeon/Techni bruno ID = [id number] for AN STEPHANIE AMOS CBC W/PLT COUNT & AUTO [id number] 05:26:00 Test Item Value Reference Range Interpretation Comments WHITE BLOOD CELL COUNT (BEAKER) 8.9 K/ L 3.5-10.5 (test code = 775) RED BLOOD CELL COUNT (BEAKER) 2.87 M/ L 4.63-6.08 L (test code = 761) HEMOGLOBIN (BEAKER) (test code = 9.0 GM/DL 13.7-17.5 L 410) HEMATOCRIT (BEAKER) (test code = 27.2 % 40.1-51.0 L 411) MEAN CORPUSCULAR VOLUME (BEAKER) 94.8 fL 79.0-92.2 H (test code = 753) MEAN CORPUSCULAR HEMOGLOBIN 31.4 pg 25.7-32.2 (BEAKER) (test code = 751) MEAN CORPUSCULAR HEMOGLOBIN CONC 33.1 GM/DL 32.3-36.5 (BEAKER) (test code = 752) RED CELL DISTRIBUTION WIDTH 12.6 % 11.6-14.4 (BEAKER) (test code = 412) PLATELET COUNT (BEAKER) (test 204 K/CU MM 150-450 code = 756) MEAN PLATELET VOLUME (BEAKER) 11.4 fL 9.4-12.4 (test code = 754) NUCLEATED RED BLOOD CELLS 0 /100 WBC 0-0 (BEAKER) (test code = 413) NEUTROPHILS RELATIVE PERCENT 82 % (BEAKER) (test code = 429) LYMPHOCYTES RELATIVE PERCENT 7 % (BEAKER) (test code = 430) MONOCYTES RELATIVE PERCENT 11 % (BEAKER) (test code = 431) EOSINOPHILS RELATIVE PERCENT 0 % (BEAKER) (test code = 432) BASOPHILS RELATIVE PERCENT 0 % (BEAKER) (test code = 437) NEUTROPHILS ABSOLUTE COUNT 7.27 K/ L 1.78-5.38 H (BEAKER) (test code = 670) LYMPHOCYTES ABSOLUTE COUNT 0.60 K/ L 1.32-3.57 L (BEAKER) (test code = 414) MONOCYTES ABSOLUTE COUNT (BEAKER) 0.94 K/ L 0.30-0.82 H (test code = 415) EOSINOPHILS ABSOLUTE COUNT 0.00 K/ L 0.04-0.54 L (BEAKER) (test code = 416) BASOPHILS ABSOLUTE COUNT (BEAKER) 0.02 K/ L 0.01-0.08 (test code = 417) IMMATURE GRANULOCYTES-RELATIVE 1 % 0-1 PERCENT (BEAKER) (test code = 2801) CBC (HEMOGRAM ONLY)2021-01-21 05:25:00 Test Item Value Reference Range Interpretation Comments WHITE BLOOD CELL COUNT (BEAKER) 8.9 K/ L 3.5-10.5 (test code = 775) RED BLOOD CELL COUNT (BEAKER) 2.87 M/ L 4.63-6.08 L (test code = 761) HEMOGLOBIN (BEAKER) (test code = 9.0 GM/DL 13.7-17.5 L 410) HEMATOCRIT (BEAKER) (test code = 27.2 % 40.1-51.0 L 411) MEAN CORPUSCULAR VOLUME (BEAKER) 94.8 fL 79.0-92.2 H (test code = 753) MEAN CORPUSCULAR HEMOGLOBIN 31.4 pg 25.7-32.2 (BEAKER) (test code = 751) MEAN CORPUSCULAR HEMOGLOBIN CONC 33.1 GM/DL 32.3-36.5 (BEAKER) (test code = 752) RED CELL DISTRIBUTION WIDTH 12.6 % 11.6-14.4 (BEAKER) (test code = 412) PLATELET COUNT (BEAKER) (test 204 K/CU MM 150-450 code = 756) MEAN PLATELET VOLUME (BEAKER) 11.4 fL 9.4-12.4 (test code = 754) NUCLEATED RED BLOOD CELLS 0 /100 WBC 0-0 (BEAKER) (test code = 413) POCT-GLUCOSE [id number] 00:28:00 Test Item Value Reference Range Interpretation Comments POC-GLUCOSE METER 154 mg/dL 70-110 H : Notified RN/MD: ([facility]) (test code = TESTED AT [facility] 67[address] 1538) [place], [address]: Reconstructive Surgeon/Techni bruno ID = [id number] for Pelon Pereyra POCT-GLUCOSE [id number] 23:00:00 Test Item Value Reference Range Interpretation Comments POC-GLUCOSE METER 159 mg/dL 70-110 H : TESTED A T [facility] 67[address] ([facility]) (test code = [facility], 1538) [address]: Reconstructive Surgeon/Techni bruno ID = [id number] for AN STEPHANIE AMOS COMPREHENSIVE METABOLIC [id number] 18:54:00 Test Item Value Reference Range Interpretation Comments TOTAL PROTEIN 6.4 gm/dL 6.0-8.3 (BEAKER) (test code = 770) ALBUMIN (BEAKER) 2.4 g/dL 3.5-5.0 L (test code = 1145) ALKALINE PHOSPHATASE 107 U/L 40-150 (BEAKER) (test code = 346) BILIRUBIN TOTAL 3.2 mg/dL 0.2-1.2 H (BEAKER) (test code = 377) SODIUM (BEAKER) (test 131 meq/L 136-145 L code = 381) POTASSIUM (BEAKER) 3.9 meq/L 3.5-5.1 (test code = 379) CHLORIDE (BEAKER) 101 meq/L 98-107 (test code = 382) CO2 (BEAKER) (test 23 meq/L 22-29 code = 355) BLOOD UREA NITROGEN 18 mg/dL 7-21 (BEAKER) (test code = 354) CREATININE (BEAKER) 1.10 mg/dL 0.57-1.25 (test code = 358) GLUCOSE RANDOM 160 mg/dL 70-105 H (BEAKER) (test code = 652) CALCIUM (BEAKER) 7.7 mg/dL 8.4-10.2 L (test code = 697) AST (SGOT) (BEAKER) 383 U/L 5-34 H (test code = 353) ALT (SGPT) (BEAKER) 183 U/L 6-55 H (test code = 347) EGFR (BEAKER) (test 81 mL/min/1.73 ESTIMA MALA GFR IS code = 1092) sq m NOT ACCURATE CREATININE CLEARANCE IN PREDICTING GLOMERULAR FILTRATION RATE . ESTIMATED GFR I S NOT APPLICABLE FOR DIALYSIS PATIEN TS. Reconstructive Surgeon ID - DBSpecimen slightly ictericCBC W/PLT COUNT & AUTO DIFFERENTIAL 2021-01-20 18:26:00 Test Item Value Reference Range Interpretation Comments WHITE BLOOD CELL COUNT (BEAKER) 6.5 K/ L 3.5-10.5 (test code = 775) RED BLOOD CELL COUNT (BEAKER) 2.58 M/ L 4.63-6.08 L (test code = 761) HEMOGLOBIN (BEAKER) (test code = 8.1 GM/DL 13.7-17.5 L 410) HEMATOCRIT (BEAKER) (test code = 24.0 % 40.1-51.0 L 411) MEAN CORPUSCULAR VOLUME (BEAKER) 93.0 fL 79.0-92.2 H (test code = 753) MEAN CORPUSCULAR HEMOGLOBIN 31.4 pg 25.7-32.2 (BEAKER) (test code = 751) MEAN CORPUSCULAR HEMOGLOBIN CONC 33.8 GM/DL 32.3-36.5 (BEAKER) (test code = 752) RED CELL DISTRIBUTION WIDTH 12.2 % 11.6-14.4 (BEAKER) (test code = 412) PLATELET COUNT (BEAKER) (test 150 K/CU MM 150-450 code = 756) MEAN PLATELET VOLUME (BEAKER) 11.1 fL 9.4-12.4 (test code = 754) NUCLEATED RED BLOOD CELLS 0 /100 WBC 0-0 (BEAKER) (test code = 413) NEUTROPHILS RELATIVE PERCENT 76 % (BEAKER) (test code = 429) LYMPHOCYTES RELATIVE PERCENT 11 % (BEAKER) (test code = 430) MONOCYTES RELATIVE PERCENT 11 % (BEAKER) (test code = 431) EOSINOPHILS RELATIVE PERCENT 1 % (BEAKER) (test code = 432) BASOPHILS RELATIVE PERCENT 0 % (BEAKER) (test code = 437) NEUTROPHILS ABSOLUTE COUNT 4.94 K/ L 1.78-5.38 (BEAKER) (test code = 670) LYMPHOCYTES ABSOLUTE COUNT 0.70 K/ L 1.32-3.57 L (BEAKER) (test code = 414) MONOCYTES ABSOLUTE COUNT (BEAKER) 0.71 K/ L 0.30-0.82 (test code = 415) EOSINOPHILS ABSOLUTE COUNT 0.08 K/ L 0.04-0.54 (BEAKER) (test code = 416) BASOPHILS ABSOLUTE COUNT (BEAKER) 0.02 K/ L 0.01-0.08 (test code = 417) IMMATURE GRANULOCYTES-RELATIVE 1 % 0-1 PERCENT (BEAKER) (test code = 2801) HEPATITIS C PCR, [id number] 15:30:00 Test Item Value Reference Range Interpretation Comments HCV NUMERIC RESULT (BEAKER) [id number] IU/mL <15 H (test code = 2700) This test uses a Real-Time Polymerase Chain Reaction (RT-PCR) methodology and was performed using [employer] Ampliprep/GARRETT TaqMan HCV test kit version 2.0 ([employer]Reportable range for this assay is 15 - 100,000,000 IU per mL (1.18 - 8.00 Log IU/mL).[id number] 13:21:00 Test Item Value Reference Range Interpretation Comments PROCALCITONIN (BEAKER) (test code 1.31 ng/mL <0.05 H = 3036) SEPSIS RISK (ng/mL)Low: 0.05-0.50Intermediate: 0.51-2.00High: >=2.01ANTI-NUCLEAR ANTIBODY (REECE)2021-01-20 10:12:00 Test Item Value Reference Range Interpretation Comments ANTI-NUCLEAR ANTIBODY (REECE) (BEAKER) Negative Negative (test code = 418) Test performed by IFA method.Test performed by IFA method.POCT-GLUCOSE METER 2021-01-20 09:07:00 Test Item Value Reference Range Interpretation Comments POC-GLUCOSE METER 134 mg/dL 70-110 H : TESTED A T [facility] [address] (BEAKER) (test code = [facility], 1538) [address]: Reconstructive Surgeon/Techni bruno ID = [id number] for [place] KAYKAY BAILEE BASIC METABOLIC [id number] 06:42:00 Test Item Value Reference Range Interpretation Comments SODIUM (BEAKER) 130 meq/L 136-145 L (test code = 381) POTASSIUM (BEAKER) 3.8 meq/L 3.5-5.1 (test code = 379) CHLORIDE (BEAKER) 97 meq/L 98-107 L (test code = 382) CO2 (BEAKER) (test 26 meq/L 22-29 code = 355) BLOOD UREA NITROGEN 16 mg/dL 7-21 (BEAKER) (test code = 354) CREATININE (BEAKER) 1.13 mg/dL 0.57-1.25 (test code = 358) GLUCOSE RANDOM 153 mg/dL 70-105 H (BEAKER) (test code = 652) CALCIUM (BEAKER) 8.4 mg/dL 8.4-10.2 (test code = 697) EGFR (BEAKER) (test 79 mL/min/1.73 ESTIMA MALA GFR IS code = 1092) sq m NOT ACCURATE CREATININE CLEARANCE IN PREDICTING GLOMERULAR FILTRATION RATE . ESTIMATED GFR I S NOT APPLICABLE FOR DIALYSIS PATIEN TS. Reconstructive Surgeon ID - [id number] 06:42:00 Test Item Value Reference Range Interpretation Comments MAGNESIUM (BEAKER) (test code = 1.5 mg/dL 1.6-2.6 L 627) Reconstructive Surgeon ID - [id number] 06:42:00 Test Item Value Reference Range Interpretation Comments PHOSPHORUS (BEAKER) (test code = 2.3 mg/dL 2.3-4.7 604) Reconstructive Surgeon ID - DBHEPATIC FUNCTION [id number] 06:42:00 Test Item Value Reference Range Interpretation Comments TOTAL PROTEIN (BEAKER) (test code = 7.0 gm/dL 6.0-8.3 770) ALBUMIN (BEAKER) (test code = 1145) 2.4 g/dL 3.5-5.0 L BILIRUBIN TOTAL (BEAKER) (test code 2.2 mg/dL 0.2-1.2 H = 377) BILIRUBIN DIRECT (BEAKER) (test 1.3 mg/dL 0.1-0.5 H code = 706) ALKALINE PHOSPHATASE (BEAKER) (test 132 U/L 40-150 code = 346) AST (SGOT) (BEAKER) (test code = 97 U/L 5-34 H 353) ALT (SGPT) (BEAKER) (test code = 113 U/L 6-55 H 347) Reconstructive Surgeon ID - DBPROTHROMBIN [id number] 06:38:00 Test Item Value Reference Range Interpretation Comments PROTIME (BEAKER) 13.3 seconds 11.9-14.2 (test code = 759) INR (BEAKER) (test 1.03 See_Comment [Automat ed message] code = 370) The system [employer] generated this result transmitted ref erence range: <=5.90. The reference range was not used to int erpret this result as normal/abnormal . RECOMMENDED COUMADIN/WARFARIN INR THERAPY RANGESSTANDARD DOSE: 2.0 - 3.0 Includes: PROPHYLAXIS forvenous thrombosis, systemic embolization; TREATMENT for venous thrombosis and/or pulmonary embolus.HIGH RISK: Target INR is 2.5-3.5 for patients with mechanical heart valves.POCT-GLUCOSE [id number] 06:34:00 Test Item Value Reference Range Interpretation Comments POC-GLUCOSE METER 148 mg/dL 70-110 H : TESTED A T [facility] [address] (BEAKER) [facility] = 1538) [address]: Reconstructive Surgeon/Techni bruno ID = [id number] for Franky perezDavid CBC W/PLT COUNT & AUTO [id number] 06:16:00 Test Item Value Reference Range Interpretation Comments WHITE BLOOD CELL COUNT (BEAKER) 5.6 K/ L 3.5-10.5 (test code = 775) RED BLOOD CELL COUNT (BEAKER) 2.85 M/ L 4.63-6.08 L (test code = 761) HEMOGLOBIN (BEAKER) (test code = 8.9 GM/DL 13.7-17.5 L 410) HEMATOCRIT (BEAKER) (test code = 26.4 % 40.1-51.0 L 411) MEAN CORPUSCULAR VOLUME (BEAKER) 92.6 fL 79.0-92.2 H (test code = 753) MEAN CORPUSCULAR HEMOGLOBIN 31.2 pg 25.7-32.2 (BEAKER) (test code = 751) MEAN CORPUSCULAR HEMOGLOBIN CONC 33.7 GM/DL 32.3-36.5 (BEAKER) (test code = 752) RED CELL DISTRIBUTION WIDTH 11.9 % 11.6-14.4 (BEAKER) (test code = 412) PLATELET COUNT (BEAKER) (test 149 K/CU MM 150-450 L code = 756) MEAN PLATELET VOLUME (BEAKER) 11.3 fL 9.4-12.4 (test code = 754) NUCLEATED RED BLOOD CELLS 0 /100 WBC 0-0 (BEAKER) (test code = 413) NEUTROPHILS RELATIVE PERCENT 69 % (BEAKER) (test code = 429) LYMPHOCYTES RELATIVE PERCENT 13 % (BEAKER) (test code = 430) MONOCYTES RELATIVE PERCENT 14 % (BEAKER) (test code = 431) EOSINOPHILS RELATIVE PERCENT 3 % (BEAKER) (test code = 432) BASOPHILS RELATIVE PERCENT 0 % (BEAKER) (test code = 437) NEUTROPHILS ABSOLUTE COUNT 3.86 K/ L 1.78-5.38 (BEAKER) (test code = 670) LYMPHOCYTES ABSOLUTE COUNT 0.73 K/ L 1.32-3.57 L (BEAKER) (test code = 414) MONOCYTES ABSOLUTE COUNT (BEAKER) 0.80 K/ L 0.30-0.82 (test code = 415) EOSINOPHILS ABSOLUTE COUNT 0.15 K/ L 0.04-0.54 (BEAKER) (test code = 416) BASOPHILS ABSOLUTE COUNT (BEAKER) 0.02 K/ L 0.01-0.08 (test code = 417) IMMATURE GRANULOCYTES-RELATIVE 1 % 0-1 PERCENT (BEAKER) (test code = 2801) POCT-GLUCOSE [id number] 00:17:00 Test Item Value Reference Range Interpretation Comments POC-GLUCOSE METER 202 mg/dL 70-110 H : Notified RN/MD: ([facility]) (test code = TESTED AT [place] [address]) [facility], [address]: Reconstructive Surgeon/Techni bruno ID = [id number] for Jimemez-Blanco, Coretta POCT-GLUCOSE [id number] 22:41:00 Test Item Value Reference Range Interpretation Comments POC-GLUCOSE METER 216 mg/dL 70-110 H : Notified RN/MD: ([facility]LE) (test code = TESTED AT [place] [address]) [facility], [address]: Reconstructive Surgeon/Techni bruno ID = [id number] for Jimemez-Blanco, Coretta POCT-GLUCOSE [id number] 16:58:00 Test Item Value Reference Range Interpretation Comments POC-GLUCOSE METER 171 mg/dL 70-110 H : TESTED A T [place] [address] (ROCHELLE) (test code = [facility], 153) [address]: Reconstructive Surgeon/Techni bruno ID = [id number] for QUEEN ARBOLEDA BONE AND/OR JOINT IMAGING, WHOLE [id number] 16:03:00Unlisted Reason for Exam - Click Yes and Enter Reason Below->YesUnlisted Reason for Exam->HCC m [facility]astatic [facility] : 1955 Sex: MFINAL REPORT PROCEDURE: BONE SCAN, WHOLE BODY CPT CODE: [id number] INDICATION: Hepatocellular carcinoma PROTOCOL: 21.8 mCi of Tc-99m MDP was injected intravenously. Whole body and selected spot images were obtained approximately 3 hours later. FINDINGS:The sacrum is obscured by persistent urinary bladder activity. Tracer activity is focally moderately increased in the right sixth rib anterolaterally, the left fifth rib at the costochondral junction, and the left eighth and ninth ribs posteriorly. Distribution is irregular in the lumbar spine and in the knees and feet. IMPRESSION: 1. There is no specific evidence of bony neoplastic disease.2. Ribfindings are consistent with bilateral rib fractures.3. 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 Images for comparison/correlation were recent chest radiograph and torso CT. Signed: Cortez Greene MDReport Verified Date/Time: 01/19/2021 16:03:52 SARS-COV2/RT-PCR ([facility])2021-01-19 13:00:00 Test Item Value Reference Range Interpretation Comments SARS-COV2/RT-PCR Negative Negative The SARS-Co V-2 target (test code = nucleic acids a re not [id number]) detected in thi s specimen. Negative result s do not preclude SARS-C oV-2 infection and s hould not be used as the duyen e basis for patient managem ent decisions. Nega tive results must be combine d with clinical observ ations, patient history , and epidemiological information. A false negativ e result may occur if a spec imen is improperly caron ected, transported or handled. This SARS CoV-2 test is a rapid, real-jagruti e RT-PCR test intended for e qualitative detection of nu cleic acid from SARS-CoV-2 in a nasopharyngeal swab specimen collected from individuals suspected of CO VID-[address] [facility]. This test has been authorized by FDA under an EUA for use by authorized laboratories. This test is only authorized for the duration of the declaration that circumstances exist justifying the authorization of emergency use of in vitro diagnostic tests for detection and/or diagnosis of COVID-19 under Section 564(b)(1) of the Federal Food, Drug and Cosmetic Act, 21 U.S.C. 360bbb- 3(b)(1), unless the authorization is terminated or revoked sooner. Fact Sheet for Healthcare Providers: https://www.[employer]/Documents/Xpert%20Xpress%20SARS%20CoV-2/Fact%20Sheets/302-3802%20SARS-COV -2%20HEALTHCARE%20PROVIDERS%20FACT%20SHEET.pdf Fact Sheet for Healthcare Patients: https://www.[employer]Documents/Xpert %20Xpress%20SARS%20CoV-2/Fact%20Sheets/302-3801%83UEHF-RFI-7%20PATIENT%20FACT%20 SHEET.pdfPOCT-GLUCOSE [id number] 12:02:00 Test Item Value Reference Range Interpretation Comments POC-GLUCOSE METER 184 mg/dL 70-110 H : TESTED A T [facility] 6720 (MediCard) (test code = [place], 1538) [id number]: Reconstructive Surgeon/Techni bruno ID = [id number] for QUEEN ARBOLEDA MRSA [id number] 10:54:00 Test Item Value Reference Range Interpretation Comments CULTURE (MediCard) (test code No MRSA isolated = 1095) BASIC METABOLIC [id number] 08:51:00 Test Item Value Reference Range Interpretation Comments SODIUM (BEAKER) 132 meq/L 136-145 L (test code = 381) POTASSIUM (BEAKER) 3.9 meq/L 3.5-5.1 (test code = 379) CHLORIDE (BEAKER) 98 meq/L 98-107 (test code = 382) CO2 (BEAKER) (test 28 meq/L 22-29 code = 355) BLOOD UREA NITROGEN 15 mg/dL 7-21 (BEAKER) (test code = 354) CREATININE (BEAKER) 1.07 mg/dL 0.57-1.25 (test code = 358) GLUCOSE RANDOM 157 mg/dL 70-105 H (BEAKER) (test code = 652) CALCIUM (BEAKER) 8.2 mg/dL 8.4-10.2 L (test code = 697) EGFR (BEAKER) (test 84 mL/min/1.73 ESTIMA MALA GFR IS code = 1092) sq m NOT ACCURATE CREATININE CLEARANCE IN PREDICTING GLOMERULAR FILTRATION RATE . ESTIMATED GFR I S NOT APPLICABLE FOR DIALYSIS PATIEN TS. Reconstructive Surgeon ID - MARCEL [id number] 08:51:00 Test Item Value Reference Range Interpretation Comments MAGNESIUM (BEAKER) (test code = 1.5 mg/dL 1.6-2.6 L 627) Reconstructive Surgeon ID - MARCEL [id number] 08:51:00 Test Item Value Reference Range Interpretation Comments PHOSPHORUS (BEAKER) (test code = 1.9 mg/dL 2.3-4.7 L 604) Reconstructive Surgeon ID - MARCEL MHEPATIC FUNCTION [id number] 08:51:00 Test Item Value Reference Range Interpretation Comments TOTAL PROTEIN (BEAKER) (test code = 7.0 gm/dL 6.0-8.3 770) ALBUMIN (BEAKER) (test code = 1145) 2.5 g/dL 3.5-5.0 L BILIRUBIN TOTAL (BEAKER) (test code 2.1 mg/dL 0.2-1.2 H = 377) BILIRUBIN DIRECT (BEAKER) (test 1.2 mg/dL 0.1-0.5 H code = 706) ALKALINE PHOSPHATASE (BEAKER) (test 121 U/L 40-150 code = 346) AST (SGOT) (BEAKER) (test code = 123 U/L 5-34 H 353) ALT (SGPT) (BEAKER) (test code = 159 U/L 6-55 H 347) Reconstructive Surgeon DELMY ROD MPROTHROMBIN [id number] 08:37:00 Test Item Value Reference Range Interpretation Comments PROTIME (BEAKER) 14.0 seconds 11.9-14.2 (test code = 759) INR (BEAKER) (test 1.10 See_Comment [Automat ed message] code = 370) The system [employer] generated this result transmitted ref erence range: <=5.90. The reference range was not used to int erpret this result as normal/abnormal . RECOMMENDED COUMADIN/WARFARIN INR THERAPY RANGESSTANDARD DOSE: 2.0 - 3.0 Includes: PROPHYLAXIS forvenous thrombosis, systemic embolization; TREATMENT for venous thrombosis and/or pulmonary embolus.HIGH RISK: Target INR is 2.5-3.5 for patients with mechanical heart valves.CBC W/PLT COUNT & AUTO DIFFERENTIAL 2021-01-19 08:31:00 Test Item Value Reference Range Interpretation Comments WHITE BLOOD CELL COUNT (BEAKER) 6.8 K/ L 3.5-10.5 (test code = 775) RED BLOOD CELL COUNT (BEAKER) 2.76 M/ L 4.63-6.08 L (test code = 761) HEMOGLOBIN (BEAKER) (test code = 8.7 GM/DL 13.7-17.5 L 410) HEMATOCRIT (BEAKER) (test code = 25.7 % 40.1-51.0 L 411) MEAN CORPUSCULAR VOLUME (BEAKER) 93.1 fL 79.0-92.2 H (test code = 753) MEAN CORPUSCULAR HEMOGLOBIN 31.5 pg 25.7-32.2 (BEAKER) (test code = 751) MEAN CORPUSCULAR HEMOGLOBIN CONC 33.9 GM/DL 32.3-36.5 (BEAKER) (test code = 752) RED CELL DISTRIBUTION WIDTH 12.1 % 11.6-14.4 (BEAKER) (test code = 412) PLATELET COUNT (BEAKER) (test 133 K/CU MM 150-450 L code = 756) MEAN PLATELET VOLUME (BEAKER) 11.6 fL 9.4-12.4 (test code = 754) NUCLEATED RED BLOOD CELLS 0 /100 WBC 0-0 (BEAKER) (test code = 413) NEUTROPHILS RELATIVE PERCENT 72 % (BEAKER) (test code = 429) LYMPHOCYTES RELATIVE PERCENT 14 % (BEAKER) (test code = 430) MONOCYTES RELATIVE PERCENT 12 % (BEAKER) (test code = 431) EOSINOPHILS RELATIVE PERCENT 2 % (BEAKER) (test code = 432) BASOPHILS RELATIVE PERCENT 0 % (BEAKER) (test code = 437) NEUTROPHILS ABSOLUTE COUNT 4.85 K/ L 1.78-5.38 (BEAKER) (test code = 670) LYMPHOCYTES ABSOLUTE COUNT 0.94 K/ L 1.32-3.57 L (BEAKER) (test code = 414) MONOCYTES ABSOLUTE COUNT (BEAKER) 0.84 K/ L 0.30-0.82 H (test code = 415) EOSINOPHILS ABSOLUTE COUNT 0.11 K/ L 0.04-0.54 (BEAKER) (test code = 416) BASOPHILS ABSOLUTE COUNT (BEAKER) 0.01 K/ L 0.01-0.08 (test code = 417) IMMATURE GRANULOCYTES-RELATIVE 0 % 0-1 PERCENT (BEAKER) (test code = 2801) POCT-GLUCOSE [id number] 07:04:00 Test Item Value Reference Range Interpretation Comments POC-GLUCOSE METER 168 mg/dL 70-110 H : TESTED A T [facility] 6720 (BEAKER) (test code = [facility], 1538) [id number]: Reconstructive Surgeon/Techni bruno ID = [id number] for QUEEN ARBOLEDA POCT-GLUCOSE [id number] 20:51:00 Test Item Value Reference Range Interpretation Comments POC-GLUCOSE METER 200 mg/dL 70-110 H : TESTED A T [facility] 6720 (BEAKER) (test code = [facility], 1538) 40645: Reconstructive Surgeon/Techni bruno ID = [id number] for ALDO VÁZQUEZ HEPATITIS A ANTIBODY, [id number] 19:37:00 Test Item Value Reference Range Interpretation Comments HEPATITIS A IGG ANTIBODY (BEAKER) Reactive Nonreactive A (test code = 2797) Reconstructive Surgeon ID - [id number] 19:37:00 Test Item Value Reference Range Interpretation Comments FERRITIN (BEAKER) (test code = 7836.14 ng/mL 5.00-275.00 H 361) Reconstructive Surgeon ID - DBOperator ID - DBCARCINOEMBRYONIC ANTIGEN (CEA)2021-01-18 19:36:00 Test Item Value Reference Range Interpretation Comments CARCINOEMBRYONIC ANTIGEN (BEAKER) 17.6 ng/mL 0.0-5.0 H (test code = 685) Reconstructive Surgeon ID - DBALPHA FETOPROTEIN (AFP), TUMOR [id number] 19:36:00 Test Item Value Reference Range Interpretation Comments ALPHA-FETOPROTEIN (BEAKER) (test 28.9 ng/mL <10.0 H code = 1094) Reconstructive Surgeon ID - DBHEPATITIS B CORE ANTIBODY, [id number] 19:36:00 Test Item Value Reference Range Interpretation Comments HEPATITIS B CORE TOTAL ANTIBODY Nonreactive Nonreactive (BEAKER) (test code = 497) Reconstructive Surgeon ID - DBHEPATITIS B SURFACE [id number] 19:06:00 Test Item Value Reference Range Interpretation Comments HEPATITIS B SURFACE ANTIBODY < mIU/mL <8.0 (BEAKER) (test code = 647) Reconstructive Surgeon ID - DBHEPATITIS C [id number] 18:58:00 Test Item Value Reference Range Interpretation Comments HEPATITIS C ANTIBODY (BEAKER) (test Reactive Nonreactive A code = 367) Reconstructive Surgeon ID - DBHEPATITIS B SURFACE [id number] 18:55:00 Test Item Value Reference Range Interpretation Comments HEPATITIS B SURFACE ANTIGEN (2) Nonreactive Nonreactive (BEAKER) (test code = 2585) Specimen is considered negative for HBsAg.[id number] 18:32:00 Test Item Value Reference Range Interpretation Comments ALPHA-1 ANTITRYPSIN (BEAKER) 275.30 mg/dL 90.00-200.00 H (test code = 502) Reconstructive Surgeon ID - DBCT, CHEST, WITHOUT [id number] 18:31:00Unlisted Reason for Exam - Click Yes and Enter Reason Below->YesUnlisted Reason for Exam->HCC;metastatic evaluation [facility] 1955 Sex: MFINAL REPORT TECHNIQUE: CT scan of the chest WITHOUT intravenous cont rast. Dose modulation, iterative reconstruction, and/or weight-based adjustment of the mA/kV was utilized to reduce the radiation dose to as low as reasonably achievable. INDICATION: Unlisted Reason for ExamHCC; metastatic evaluation. COMPARISON: CT from yesterday. Chest CT from 01/15/2021 FINDINGS: ABSENCE OF INTRAVENOUS CONTRAST DECREASES SENSITIVITY FOR DETECTION OF FOCAL LESIONS AND VASCULAR PATHOLOGY. LINES/TUBES: None. LUNGS AND AIRWAYS: The lungs and airways are normal without focal abnormality. PLEURA: There is a small amount of hyperdense fluid in the right pleural space. Trace left pleural effusion. HEART AND MEDIASTINUM: The visualized thyroid gland is normal. No significant mediastinal, hilar, or axillary lymphadenopathy. A calcified subcarinal lymph node is likely due to prior granulomas disease. The heart and pericardium are within normal limits. Marked calcification of the coronary arteries. Mild calcification of the arch branch vessels and descending thoracic aorta. SOFT TISSUES AND BONES: Age-indeterminate bilateral anterior rib fractures. UPPER ABDOMEN: The abdomen was better evaluated on the CT yesterday. The pneumothorax is partially visualized. Cholelithiasis without acute cholecystitis. The distal esophagus is mildly thickened. The gastric wall is mildly thickened. IMP RESSION: 1.No metastatic disease in the chest. 2.The fluid in the pleural spaces mild hyperdense andcould be due to a hemothorax, although indeterminate. If differentiation of a fusion from hemothoraxis clinically necessary, consider an ultrasound. 3.The mild thickening of the distal esophagus is nonspecific but may be due to esophagitis. Close attention on follow-up imaging is recommended. 4.Age-indeterminate bilateral anterior rib fractures. 5.The mild thickening of the gastric wall is nonspecific and could be due to gastritis or portal gastropathy. Signed: Edy Banks MDReport Verified Date/Time: 01/18/2021 18:31:02 Reading Location: [facility] B1 C013Y CT Body Reading Room IRON, TIBC, % SAT. (WITHOUT FERRITIN)2021-01-18 17:55:00 Test Item Value Reference Range Interpretation Comments IRON (BEAKER) (test code = 547) 34.0 ug/dL 40.0-160.0 L TOTAL IRON BINDING CAPACITY 276 ug/dL 250-450 (BEAKER) (test code = 769) IRON % SATURATION (2) (BEAKER) 12 % 20-55 L (test code = 2590) Reconstructive Surgeon ID - DBPOCT-GLUCOSE [id number] 17:14:00 Test Item Value Reference Range Interpretation Comments POC-GLUCOSE METER 206 mg/dL 70-110 H : TESTED A T [facility] 6720 (BEAKER) (test code = [facility], 1538) 38490: Reconstructive Surgeon/Techni bruno ID = [id number] for YARY Driscoll POCT-GLUCOSE [id number] 10:41:00 Test Item Value Reference Range Interpretation Comments POC-GLUCOSE METER 223 mg/dL 70-110 H : TESTED A T [facility] 6720 (BEAKER) (test code = [facility], 1538) [id number]: Reconstructive Surgeon/Techni bruno ID = [id number] for RUDY DOYLE TTMike CBC W/PLT COUNT & AUTO [id number] 08:09:00 Test Item Value Reference Range Interpretation Comments WHITE BLOOD CELL COUNT (BEAKER) 7.6 K/ L 3.5-10.5 (test code = 775) RED BLOOD CELL COUNT (BEAKER) 2.92 M/ L 4.63-6.08 L (test code = 761) HEMOGLOBIN (BEAKER) (test code = 9.2 GM/DL 13.7-17.5 L 410) HEMATOCRIT (BEAKER) (test code = 27.2 % 40.1-51.0 L 411) MEAN CORPUSCULAR VOLUME (BEAKER) 93.2 fL 79.0-92.2 H (test code = 753) MEAN CORPUSCULAR HEMOGLOBIN 31.5 pg 25.7-32.2 (BEAKER) (test code = 751) MEAN CORPUSCULAR HEMOGLOBIN CONC 33.8 GM/DL 32.3-36.5 (BEAKER) (test code = 752) RED CELL DISTRIBUTION WIDTH 12.1 % 11.6-14.4 (BEAKER) (test code = 412) PLATELET COUNT (BEAKER) (test 103 K/CU MM 150-450 L code = 756) MEAN PLATELET VOLUME (BEAKER) 11.3 fL 9.4-12.4 (test code = 754) NUCLEATED RED BLOOD CELLS 0 /100 WBC 0-0 (BEAKER) (test code = 413) NEUTROPHILS RELATIVE PERCENT 70 % (BEAKER) (test code = 429) LYMPHOCYTES RELATIVE PERCENT 18 % (BEAKER) (test code = 430) MONOCYTES RELATIVE PERCENT 11 % (BEAKER) (test code = 431) EOSINOPHILS RELATIVE PERCENT 1 % (BEAKER) (test code = 432) BASOPHILS RELATIVE PERCENT 0 % (BEAKER) (test code = 437) NEUTROPHILS ABSOLUTE COUNT 5.32 K/ L 1.78-5.38 (BEAKER) (test code = 670) LYMPHOCYTES ABSOLUTE COUNT 1.36 K/ L 1.32-3.57 (BEAKER) (test code = 414) MONOCYTES ABSOLUTE COUNT (BEAKER) 0.82 K/ L 0.30-0.82 (test code = 415) EOSINOPHILS ABSOLUTE COUNT 0.06 K/ L 0.04-0.54 (BEAKER) (test code = 416) BASOPHILS ABSOLUTE COUNT (BEAKER) 0.02 K/ L 0.01-0.08 (test code = 417) IMMATURE GRANULOCYTES-RELATIVE 1 % 0-1 PERCENT (BEAKER) (test code = 2801) POCT-GLUCOSE [id number] 07:17:00 Test Item Value Reference Range Interpretation Comments POC-GLUCOSE METER 153 mg/dL 70-110 H : TESTED A T [facility] 6720 (BEAKER) (test code = [facility], 1538) 04478: Reconstructive Surgeon/Techni bruno ID = [id number] for QUEEN ARBOLEDA POCT-GLUCOSE [id number] 20:43:00 Test Item Value Reference Range Interpretation Comments POC-GLUCOSE METER 116 mg/dL 70-110 H : TESTED A T [facility] 6720 (BEAKER) (test code = [facility], 153) 34056: Reconstructive Surgeon/Techni bruno ID = [id number] for ALDO VÁZQUEZ POCT-GLUCOSE [id number] 17:11:00 Test Item Value Reference Range Interpretation Comments POC-GLUCOSE METER 231 mg/dL 70-110 H : TESTED A T [facility] 6720 (BEABIMBOLA) (test code = [place], 1538) 92968: Reconstructive Surgeon/Techni bruno ID = [id number] for QUEEN ARBOLEDA CT, ABDOMEN, [id number] 13:47:00Unlisted Reason for Exam - Click Yes and Enter Reason Below->YesUnlisted Reason for Exam->liver tumorWill this procedure require oral contrast?->Yes [facility]ABIA : 1955 Sex: MFINAL REPORT CT, ABDOMEN, WITHOUT \\T\\ WITH CONTRAST HISTORY: Neoplasm: liver or bile ductliver tumor COMPARISON: Outside CT chest abdomen pelvis 01/15/2021. TECHNIQUE: CTabdomen without and with IV contrast, liver mass protocol. Dose modulation, iterative reconstruction, and/or weight based adjustment of the mA/kV was utilized to reduce the radiation dose to as low as reasonably achievable. FINDINGS: Hepatobiliary Findings:Contour: Mildly nodular.Density and enhancement: Mildly decreased in attenuation. There are some postembolization changes in the posterior right hepatic lobe.Lesions: *Post embolization changes of the previously noted circumscribed lesion in segment 6/7, measuring 5.9 x 6.1 cm (arterial phase image 36), still has some enhancement internally at the inferior aspect of the tumor, LR TR viable. No evidence for ongoing hemorrhage from this lesion. Heterogeneity of the liver parenchyma inferior to this lesion is concerning for infiltrative tumor.*A12 mm focus of arterial phase hyperenhancement in segment 2 (arterial phase image 30) without washout or pseudocapsule, LR 3.*An irregular low-density lesion in segment 5, with a small amount of peripheral arterial enhancement (arterial phase image 48) and mostly hypoattenuating and nonenhancing, no washout or pseudocapsule, measures 7.9 x 3.3 cm, LR 4.Portal vein: Patent.Hepatic artery: Patent. Conventional anatomy.Gallbladder and bile ducts: Gallstones. Vicarious contrast excretion into the gallbladder lumen. No evidence for acute cholecystitis and no biliary ductal dilation.Spleen: Borderline enlarged. Punctate calcifications related to old granulomatous disease.Collateral vasculature: None.Peritoneum: Redemonstration of moderate volume hemoperitoneum, no evidence for ongoing hemorrhage on this exam. Additional Findings:Lung bases: Small bilateral pleural effusions with right greater than left lower lobe atelectasis.Pancreas: Unremarkable.Adrenals: UnremarkableKidneys and ureters: Unremarkable.Bowel: Wall thickening of the distal esophagus. Otherwise nondilated bowel with no wall thickeningLymph nodes: Unremarkable.Vessels: Moderate atherosclerotic calcifications.Abdominal wall: Unremarkable.Bones: Degenerative changes in the visible lumbar spine. IMPRESSION: 1.Cirrhosis. Postembolization changes with persistent enhancement within the circumscribed segment 6/7 tumor, LR TR viable. Heterogeneity of the liver parenchyma inferior to this circumscribed lesion concerning for infiltrative disease. 2.Moderate volume hemoperitoneum. No evidence for ongoing peritoneal hemorrhage. 3.An irregular 7.9 cm mostly hypoattenuating/nonenhancing LI-RADS 4 lesion in segment 5. 4.A 1.2 cm indeterminatesegment 2 LI-RADS 3 lesion. 5.Wall thickening of the distal esophagus. 6.Small bilateral pleural effusions. Signed: Deepak Mclean Verified Date/Time: 01/17/2021 13:47:56 RAD, CHEST, 1 VIEW, NON DEPT 2021-01-17 13:08:00Reason for exam:->cough and feverShould this be performed at the bedside?->Yes [facility] 1955 Sex: MFINAL REPORT INDICATION: cough and fever COMPARISON: None TECHNIQUE: Single frontal view of the chest. FINDINGS: Lungs and pleura: Clear lungs. No effusion.Heart and mediastinum: Normal heart size. Unremarkable mediastinal contours.Osseous structures: No acute abnormality.Other: None. IMPRESSION: No acute intrathoracic abnormality. Signed: JR Mcgregor Robert MDReport Verified Date/Time: 01/17/2021 13:08:07 Reading Location: [facility] Radiology Reading Room POCT-GLUCOSE [id number] 11:04:00 Test Item Value Reference Range Interpretation Comments POC-GLUCOSE METER 259 mg/dL 70-110 H : TESTED A T [facility] 6720 (BEAKER) (test code = [facility], 1538) 61894: Reconstructive Surgeon/Techni bruno ID = [id number] for ANKUR LUONG KOTLIK POCT-GLUCOSE [id number] 07:47:00 Test Item Value Reference Range Interpretation Comments POC-GLUCOSE METER 195 mg/dL 70-110 H : TESTED A T [facility] 6720 (BEAKER) (test code = [facility], 1538) 72634: Reconstructive Surgeon/Techni bruno ID = [id number] for QUEEN ARBOLEDA BASIC METABOLIC [id number] 07:45:00 Test Item Value Reference Range Interpretation Comments SODIUM (BEAKER) 137 meq/L 136-145 (test code = 381) POTASSIUM (BEAKER) 4.6 meq/L 3.5-5.1 (test code = 379) CHLORIDE (BEAKER) 102 meq/L 98-107 (test code = 382) CO2 (BEAKER) (test 26 meq/L 22-29 code = 355) BLOOD UREA NITROGEN 15 mg/dL 7-21 (BEAKER) (test code = 354) CREATININE (BEAKER) 1.15 mg/dL 0.57-1.25 (test code = 358) GLUCOSE RANDOM 209 mg/dL 70-105 H (BEAKER) (test code = 652) CALCIUM (BEAKER) 8.4 mg/dL 8.4-10.2 (test code = 697) EGFR (BEAKER) (test 77 mL/min/1.73 ESTIMA MALA GFR IS code = 1092) sq m NOT ACCURATE CREATININE CLEARANCE IN PREDICTING GLOMERULAR FILTRATION RATE . ESTIMATED GFR I S NOT APPLICABLE FOR DIALYSIS PATIEN TS. Reconstructive Surgeon ID - ADMINOperator ID - ADMINOperator ID - ADMINHEPATIC FUNCTION PANEL 2021-01-17 07:45:00 Test Item Value Reference Range Interpretation Comments TOTAL PROTEIN (BEAKER) (test code = 6.6 gm/dL 6.0-8.3 770) ALBUMIN (BEAKER) (test code = 1145) 2.6 g/dL 3.5-5.0 L BILIRUBIN TOTAL (BEAKER) (test code 2.0 mg/dL 0.2-1.2 H = 377) BILIRUBIN DIRECT (BEAKER) (test 1.4 mg/dL 0.1-0.5 H code = 706) ALKALINE PHOSPHATASE (BEAKER) (test 138 U/L 40-150 code = 346) AST (SGOT) (BEAKER) (test code = 551 U/L 5-34 H 353) ALT (SGPT) (BEAKER) (test code = 371 U/L 6-55 H 347) Reconstructive Surgeon ID - ADMINOperator ID - ADMINOperator ID - ADMINURINALYSIS W/ REFLEX URINE [id number] 06:58:00 Test Item Value Reference Range Interpretation Comments COLOR (BEAKER) (test code = 470) Yellow CLARITY (BEAKER) (test code = Clear 469) SPECIFIC GRAVITY UA (BEAKER) 1.022 1.001-1.035 (test code = 468) PH UA (BEAKER) (test code = 467) 6.5 5.0-8.0 PROTEIN UA (BEAKER) (test code = 50 mg/dL Negative A 464) GLUCOSE UA (BEAKER) (test code = >1000 mg/dL Negative A 365) KETONES UA (BEAKER) (test code = Negative Negative 371) BILIRUBIN UA (BEAKER) (test code Negative Negative = 462) BLOOD UA (BEAKER) (test code = Trace Negative A 461) NITRITE UA (BEAKER) (test code = Negative Negative 465) LEUKOCYTE ESTERASE UA (BEAKER) Negative Negative (test code = 466) UROBILINOGEN UA (BEAKER) (test 2.0 mg/dL 0.2-1.0 H code = 463) RBC UA (BEAKER) (test code = 519) 7 /HPF WBC UA (BEAKER) (test code = 520) < /HPF BACTERIA (BEAKER) (test code = None Seen 517) CRYSTALS, URINE (BEAKER) (test None Seen code = 1521) AMORPHOUS CRYSTALS (BEAKER) (test Occasional code = 1584) SOURCE(BEAKER) (test code = 2795) Reconstructive Surgeon ID - [auto]Reconstructive Surgeon ID - [id number] 06:22:00 Test Item Value Reference Range Interpretation Comments MAGNESIUM (BEAKER) (test code = 1.3 mg/dL 1.6-2.6 L 627) Reconstructive Surgeon ID - [id number] 06:22:00 Test Item Value Reference Range Interpretation Comments PHOSPHORUS (BEAKER) (test code = 2.4 mg/dL 2.3-4.7 604) Reconstructive Surgeon ID - ADMINCBC W/PLT COUNT & AUTO [id number] 05:33:00 Test Item Value Reference Range Interpretation Comments WHITE BLOOD CELL COUNT (BEAKER) 7.7 K/ L 3.5-10.5 (test code = 775) RED BLOOD CELL COUNT (BEAKER) 2.81 M/ L 4.63-6.08 L (test code = 761) HEMOGLOBIN (BEAKER) (test code = 8.9 GM/DL 13.7-17.5 L 410) HEMATOCRIT (BEAKER) (test code = 26.9 % 40.1-51.0 L 411) MEAN CORPUSCULAR VOLUME (BEAKER) 95.7 fL 79.0-92.2 H (test code = 753) MEAN CORPUSCULAR HEMOGLOBIN 31.7 pg 25.7-32.2 (BEAKER) (test code = 751) MEAN CORPUSCULAR HEMOGLOBIN CONC 33.1 GM/DL 32.3-36.5 (BEAKER) (test code = 752) RED CELL DISTRIBUTION WIDTH 12.7 % 11.6-14.4 (BEAKER) (test code = 412) PLATELET COUNT (BEAKER) (test code 85 K/CU MM 150-450 L = 756) MEAN PLATELET VOLUME (BEAKER) 12.8 fL 9.4-12.4 H (test code = 754) NUCLEATED RED BLOOD CELLS (BEAKER) 0 /100 WBC 0-0 (test code = 413) NEUTROPHILS RELATIVE PERCENT 66 % (BEAKER) (test code = 429) LYMPHOCYTES RELATIVE PERCENT 23 % (BEAKER) (test code = 430) MONOCYTES RELATIVE PERCENT 10 % (BEAKER) (test code = 431) EOSINOPHILS RELATIVE PERCENT 0 % (BEAKER) (test code = 432) BASOPHILS RELATIVE PERCENT 0 % (BEAKER) (test code = 437) NEUTROPHILS ABSOLUTE COUNT 5.03 K/ L 1.78-5.38 (BEAKER) (test code = 670) LYMPHOCYTES ABSOLUTE COUNT 1.75 K/ L 1.32-3.57 (BEAKER) (test code = 414) MONOCYTES ABSOLUTE COUNT (BEAKER) 0.79 K/ L 0.30-0.82 (test code = 415) EOSINOPHILS ABSOLUTE COUNT 0.03 K/ L 0.04-0.54 L (BEAKER) (test code = 416) BASOPHILS ABSOLUTE COUNT (BEAKER) 0.02 K/ L 0.01-0.08 (test code = 417) IMMATURE GRANULOCYTES-RELATIVE 1 % 0-1 PERCENT (BEAKER) (test code = 2801) POCT-GLUCOSE [id number] 21:54:00 Test Item Value Reference Range Interpretation Comments POC-GLUCOSE METER 162 mg/dL 70-110 H : TESTED A T [facility] 6720 (BEAKER) (test code = [facility] [place], 1538) 27239: Reconstructive Surgeon/Techni bruno ID = [id number] for MARICHUY DICKENS CBC W/PLT COUNT & AUTO [id number] 20:24:00 Test Item Value Reference Range Interpretation Comments WHITE BLOOD CELL COUNT (BEAKER) 7.6 K/ L 3.5-10.5 (test code = 775) RED BLOOD CELL COUNT (BEAKER) 2.81 M/ L 4.63-6.08 L (test code = 761) HEMOGLOBIN (BEAKER) (test code = 8.8 GM/DL 13.7-17.5 L 410) HEMATOCRIT (BEAKER) (test code = 27.4 % 40.1-51.0 L 411) MEAN CORPUSCULAR VOLUME (BEAKER) 97.5 fL 79.0-92.2 H (test code = 753) MEAN CORPUSCULAR HEMOGLOBIN 31.3 pg 25.7-32.2 (BEAKER) (test code = 751) MEAN CORPUSCULAR HEMOGLOBIN CONC 32.1 GM/DL 32.3-36.5 L (BEAKER) (test code = 752) RED CELL DISTRIBUTION WIDTH 13.2 % 11.6-14.4 (BEAKER) (test code = 412) PLATELET COUNT (BEAKER) (test code 77 K/CU MM 150-450 L = 756) MEAN PLATELET VOLUME (BEAKER) 12.2 fL 9.4-12.4 (test code = 754) NUCLEATED RED BLOOD CELLS (BEAKER) 0 /100 WBC 0-0 (test code = 413) NEUTROPHILS RELATIVE PERCENT 67 % (BEAKER) (test code = 429) LYMPHOCYTES RELATIVE PERCENT 22 % (BEAKER) (test code = 430) MONOCYTES RELATIVE PERCENT 10 % (BEAKER) (test code = 431) EOSINOPHILS RELATIVE PERCENT 0 % (BEAKER) (test code = 432) BASOPHILS RELATIVE PERCENT 0 % (BEAKER) (test code = 437) NEUTROPHILS ABSOLUTE COUNT 5.13 K/ L 1.78-5.38 (BEAKER) (test code = 670) LYMPHOCYTES ABSOLUTE COUNT 1.68 K/ L 1.32-3.57 (BEAKER) (test code = 414) MONOCYTES ABSOLUTE COUNT (BEAKER) 0.73 K/ L 0.30-0.82 (test code = 415) EOSINOPHILS ABSOLUTE COUNT 0.03 K/ L 0.04-0.54 L (BEAKER) (test code = 416) BASOPHILS ABSOLUTE COUNT (BEAKER) 0.02 K/ L 0.01-0.08 (test code = 417) IMMATURE GRANULOCYTES-RELATIVE 1 % 0-1 PERCENT (BEAKER) (test code = 2801) POCT-GLUCOSE [id number] 18:35:00 Test Item Value Reference Range Interpretation Comments POC-GLUCOSE METER 162 mg/dL 70-110 H : TESTED A [facility] 6720 (ROCHELLE) (test code = [place], 1538) 44062: Reconstructive Surgeon/Techni bruno ID = [id number] for LISSETT JACOME, NOLBERTO ANG, VISCERAL [id number] 15:42:00Reason for exam:->embolization of hemorrhage from hepatic lesion [facility] 1955 Sex: MFINAL REPORT 1. Mesenteric angiogram2. 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 Modality: Sonography and Fluoroscopy. Sedation: Versed one mg and fentanyl 50 mcg was given intravenously for conscious sedation. Vital signs were monitored throughout the procedure by a nurse, and remained stable. Physician intra-service time was 120 minutes. Anesthesia: Two percent Lidocaine without epinephrine. Approach: Right common femoral artery. Estimated blood loss: < 5 cc. Specimen: None. bowling alley operator: Adam Ellison MD.. Mill Laborer: Nichole Tejeda M.D.. Fluoroscopy Time: 42.9 min.Reference Air Kerma (Ka, r): 4605 mGy. The skin was anesthetized with lidocaine. The right common femoral artery was accessed using a 21-gauge micropuncture needle and a 0.018 inch microwire. Access of site a 5 Czech catheter through which a 0.035 inch wire was placed. A 5 Czech sheath was placed over the wire. A 5Fr SOS-II catheter was used to select the celiacartery for a DSA.A 2.8 progreat microcatheter was advanced through the base catheter and into the right hepatic artery for multiple digital subtraction angiograms. Multiple obliquities were obtained inorder to delineate the arterial anatomy. A standard 0.0, 140.016 fathom wires were attempted multiple times to catheterize the feeding vessel of the segment 6/7 exophytic hemorrhaging tumor. After multi ple unsuccessful attempts due to significant tortuosity and acute angulation of the culprit artery aneuro interventional radiology 90 degree-shaped catheter was used to select the artery successfully.A total of two vials of 100-300 and one vial of 300-500 embospheres were utilized to embolize the tumor and feeding artery with minimal nontarget embolization. Postprocedure angiogram was performed through the base catheter and the 5 Czech catheter. The catheter was removed. Injection was performed through the right femoral sheath for a DSA run. The arteriotomy was closed and hemostasis was obtainedwith a Angio-Seal closure device. Vital signs were monitored throughout the procedure by a nurse, and remained stable. The patient tolerated the procedure well and left the department in the same condition. FINDINGS: 1. Celiac injection: The splenic artery, common hepatic artery, left gastric artery, and gastroduodenal artery are patent with normal branching pattern. The splenic vein is patent. Reversal of flow within the gastroduodenal artery is noted. 2. 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 Angiograms demonstrate hypervascularity and tumor blush. Repeat angiogram after embolization demonstrates stasis within the carotid vessel no further opacification of the tumor.4. Right common femoral artery injection: Patent right femoral artery and normal sheath position. IMPRESSIO N: 1. Successful, uncomplicated mesenteric angiogram and bland embolization of the right hepatic segment 6/7 heterogeneous exophytic tumor.2. Successful hemostasis using closure device. Signed: Adam Ellison MDReport Verified Date/Time: 01/16/2021 15:42:40 CBC W/PLT COUNT & AUTO [id number] 15:17:00 Test Item Value Reference Range Interpretation Comments WHITE BLOOD CELL COUNT (BEAKER) 7.1 K/ L 3.5-10.5 (test code = 775) RED BLOOD CELL COUNT (BEAKER) 2.83 M/ L 4.63-6.08 L (test code = 761) HEMOGLOBIN (BEAKER) (test code = 9.0 GM/DL 13.7-17.5 L 410) HEMATOCRIT (BEAKER) (test code = 26.7 % 40.1-51.0 L 411) MEAN CORPUSCULAR VOLUME (BEAKER) 94.3 fL 79.0-92.2 H (test code = 753) MEAN CORPUSCULAR HEMOGLOBIN 31.8 pg 25.7-32.2 (BEAKER) (test code = 751) MEAN CORPUSCULAR HEMOGLOBIN CONC 33.7 GM/DL 32.3-36.5 (BEAKER) (test code = 752) RED CELL DISTRIBUTION WIDTH 13.2 % 11.6-14.4 (BEAKER) (test code = 412) PLATELET COUNT (BEAKER) (test code 90 K/CU MM 150-450 L = 756) MEAN PLATELET VOLUME (BEAKER) 12.2 fL 9.4-12.4 (test code = 754) NUCLEATED RED BLOOD CELLS (BEAKER) 0 /100 WBC 0-0 (test code = 413) NEUTROPHILS RELATIVE PERCENT 69 % (BEAKER) (test code = 429) LYMPHOCYTES RELATIVE PERCENT 21 % (BEAKER) (test code = 430) MONOCYTES RELATIVE PERCENT 9 % (BEAKER) (test code = 431) EOSINOPHILS RELATIVE PERCENT 0 % (BEAKER) (test code = 432) BASOPHILS RELATIVE PERCENT 0 % (BEAKER) (test code = 437) NEUTROPHILS ABSOLUTE COUNT 4.93 K/ L 1.78-5.38 (BEAKER) (test code = 670) LYMPHOCYTES ABSOLUTE COUNT 1.48 K/ L 1.32-3.57 (BEAKER) (test code = 414) MONOCYTES ABSOLUTE COUNT (BEAKER) 0.64 K/ L 0.30-0.82 (test code = 415) EOSINOPHILS ABSOLUTE COUNT 0.03 K/ L 0.04-0.54 L (BEAKER) (test code = 416) BASOPHILS ABSOLUTE COUNT (BEAKER) 0.01 K/ L 0.01-0.08 (test code = 417) IMMATURE GRANULOCYTES-RELATIVE 1 % 0-1 PERCENT (BEAKER) (test code = 2801) POCT-GLUCOSE [id number] 14:18:00 Test Item Value Reference Range Interpretation Comments POC-GLUCOSE METER 224 mg/dL 70-110 H : TESTED A T [facility] 6720 (BEAKER) (test code = [place], 1538) [id number]: Reconstructive Surgeon/Techni bruno ID = [id number] for TODD TURCIOS HEMOGLOBIN [id number] 11:26:00 Test Item Value Reference Range Interpretation Comments HEMOGLOBIN A1C (BEAKER) (test code = 11.1 % 4.3-6.1 H 368) [id number] 06:04:00 Test Item Value Reference Range Interpretation Comments PHOSPHORUS (BEAKER) (test code = 2.8 mg/dL 2.3-4.7 604) Reconstructive Surgeon ID - ADMINCBC (HEMOGRAM ONLY)2021-01-16 06:01:00 Test Item Value Reference Range Interpretation Comments WHITE BLOOD CELL COUNT (BEAKER) 6.2 K/ L 3.5-10.5 (test code = 775) RED BLOOD CELL COUNT (BEAKER) 2.96 M/ L 4.63-6.08 L (test code = 761) HEMOGLOBIN (BEAKER) (test code = 9.3 GM/DL 13.7-17.5 L 410) HEMATOCRIT (BEAKER) (test code = 27.7 % 40.1-51.0 L 411) MEAN CORPUSCULAR VOLUME (BEAKER) 93.6 fL 79.0-92.2 H (test code = 753) MEAN CORPUSCULAR HEMOGLOBIN 31.4 pg 25.7-32.2 (BEAKER) (test code = 751) MEAN CORPUSCULAR HEMOGLOBIN CONC 33.6 GM/DL 32.3-36.5 (BEAKER) (test code = 752) RED CELL DISTRIBUTION WIDTH 13.2 % 11.6-14.4 (BEAKER) (test code = 412) PLATELET COUNT (BEAKER) (test code 98 K/CU MM 150-450 L = 756) MEAN PLATELET VOLUME (BEAKER) 12.2 fL 9.4-12.4 (test code = 754) NUCLEATED RED BLOOD CELLS (BEAKER) 0 /100 WBC 0-0 (test code = 413) HEPATIC FUNCTION [id number] 04:16:00 Test Item Value Reference Range Interpretation Comments TOTAL PROTEIN (BEAKER) 6.4 gm/dL 6.0-8.3 Speci men slightly (test code = 770) hemolyzed ALBUMIN (BEAKER) (test 2.9 g/dL 3.5-5.0 L Speci men slightly code = 1145) hemolyzed BILIRUBIN TOTAL 0.8 mg/dL 0.2-1.2 Specimen sli ghtly (BEAKER) (test code = hemoly zed 377) BILIRUBIN DIRECT 0.4 mg/dL 0.1-0.5 Specimen sl ightly (BEAKER) (test code = hemoly zed 706) ALKALINE PHOSPHATASE 102 U/L 40-150 (BEAKER) (test code = 346) AST (SGOT) (BEAKER) 677 U/L 5-34 H Specimen slightly (test code = 353) hemolyzed ALT (SGPT) (BEAKER) 385 U/L 6-55 H Specimen slightly (test code = 347) hemolyzed [id number] 04:16:00 Test Item Value Reference Range Interpretation Comments MAGNESIUM (BEAKER) 2.1 mg/dL 1.6-2.6 Specimen slightly (test code = 627) hemolyzed BASIC METABOLIC [id number] 04:16:00 Test Item Value Reference Range Interpretation Comments SODIUM (BEAKER) 137 meq/L 136-145 (test code = 381) POTASSIUM (BEAKER) 4.2 meq/L 3.5-5.1 Specimen slightly (test code = 379) hemolyzed CHLORIDE (BEAKER) 105 meq/L 98-107 (test code = 382) CO2 (BEAKER) (test 28 meq/L 22-29 code = 355) BLOOD UREA NITROGEN 17 mg/dL 7-21 (BEAKER) (test code = 354) CREATININE (BEAKER) 1.44 mg/dL 0.57-1.25 H Specimen slightly (test code = 358) hemolyzed GLUCOSE RANDOM 293 mg/dL 70-105 H (BEAKER) (test code = 652) CALCIUM (BEAKER) 9.1 mg/dL 8.4-10.2 (test code = 697) EGFR (BEAKER) (test 60 mL/min/1.73 ESTIMA MALA GFR IS code = 1092) sq m NOT ACCURATE CREATININE CLEARANCE IN PREDICTING GLOMERULAR FILTRATION RATE . ESTIMATED GFR I S NOT APPLICABLE FOR DIALYSIS PATIEN TS. POCT-GLUCOSE [id number] 02:34:00 Test Item Value Reference Range Interpretation Comments POC-GLUCOSE METER 286 mg/dL 70-110 H : TESTED A T [facility] 6720 (BEAKER) (test code = [facility], 1538) [address]: Reconstructive Surgeon/Techni bruno ID = [id number] for TODD TURCIOS CBC (HEMOGRAM ONLY)2021-01-16 02:25:00 Test Item Value Reference Range Interpretation Comments WHITE BLOOD CELL COUNT (BEAKER) 6.4 K/ L 3.5-10.5 (test code = 775) RED BLOOD CELL COUNT (BEAKER) 2.92 M/ L 4.63-6.08 L (test code = 761) HEMOGLOBIN (BEAKER) (test code = 9.1 GM/DL 13.7-17.5 L 410) HEMATOCRIT (BEAKER) (test code = 27.2 % 40.1-51.0 L 411) MEAN CORPUSCULAR VOLUME (BEAKER) 93.2 fL 79.0-92.2 H (test code = 753) MEAN CORPUSCULAR HEMOGLOBIN 31.2 pg 25.7-32.2 (BEAKER) (test code = 751) MEAN CORPUSCULAR HEMOGLOBIN CONC 33.5 GM/DL 32.3-36.5 (BEAKER) (test code = 752) RED CELL DISTRIBUTION WIDTH 13.2 % 11.6-14.4 (BEAKER) (test code = 412) PLATELET COUNT (BEAKER) (test code 96 K/CU MM 150-450 L = 756) MEAN PLATELET VOLUME (BEAKER) 12.0 fL 9.4-12.4 (test code = 754) NUCLEATED RED BLOOD CELLS (BEAKER) 0 /100 WBC 0-0 (test code = 413) POCT-GLUCOSE [id number] 23:28:00 Test Item Value Reference Range Interpretation Comments POC-GLUCOSE METER 300 mg/dL 70-110 H : TESTED A T [facility] 6720 (BEAKER) (test code = [facility], 1538) [address]: Reconstructive Surgeon/Techni bruno ID = [id number] for TODD TURCIOS BASIC METABOLIC [id number] 22:08:00 Test Item Value Reference Range Interpretation Comments SODIUM (BEAKER) 132 meq/L 136-145 L (test code = 381) POTASSIUM (BEAKER) 3.9 meq/L 3.5-5.1 (test code = 379) CHLORIDE (BEAKER) 103 meq/L 98-107 (test code = 382) CO2 (BEAKER) (test 14 meq/L 22-29 L code = 355) BLOOD UREA NITROGEN 20 mg/dL 7-21 (BEAKER) (test code = 354) CREATININE (BEAKER) 1.45 mg/dL 0.57-1.25 H (test code = 358) GLUCOSE RANDOM 249 mg/dL 70-105 H (BEAKER) (test code = 652) CALCIUM (BEAKER) 8.4 mg/dL 8.4-10.2 (test code = 697) EGFR (BEAKER) (test 59 mL/min/1.73 ESTIMA MALA GFR IS code = 1092) sq m NOT ACCURATE CREATININE CLEARANCE IN PREDICTING GLOMERULAR FILTRATION RATE . ESTIMATED GFR I S NOT APPLICABLE FOR DIALYSIS PATIEN TS. Reconstructive Surgeon ID - [id number] 22:08:00 Test Item Value Reference Range Interpretation Comments MAGNESIUM (BEAKER) (test code = 1.5 mg/dL 1.6-2.6 L 627) Reconstructive Surgeon ID - [id number] 22:08:00 Test Item Value Reference Range Interpretation Comments PHOSPHORUS (BEAKER) (test code = 2.6 mg/dL 2.3-4.7 604) Reconstructive Surgeon ID - ADMINLACTIC ACID, [id number] 22:06:00 Test Item Value Reference Range Interpretation Comments LACTATE BLOOD VENOUS (2) (BEAKER) 1.07 mmol/L 0.50-2.20 (test code = 2872) Reconstructive Surgeon ID - ADMINCBC (HEMOGRAM ONLY)2021-01-15 21:52:00 Test Item Value Reference Range Interpretation Comments WHITE BLOOD CELL COUNT (BEAKER) 7.3 K/ L 3.5-10.5 (test code = 775) RED BLOOD CELL COUNT (BEAKER) 3.01 M/ L 4.63-6.08 L (test code = 761) HEMOGLOBIN (BEAKER) (test code = 9.5 GM/DL 13.7-17.5 L 410) HEMATOCRIT (BEAKER) (test code = 28.4 % 40.1-51.0 L 411) MEAN CORPUSCULAR VOLUME (BEAKER) 94.4 fL 79.0-92.2 H (test code = 753) MEAN CORPUSCULAR HEMOGLOBIN 31.6 pg 25.7-32.2 (BEAKER) (test code = 751) MEAN CORPUSCULAR HEMOGLOBIN CONC 33.5 GM/DL 32.3-36.5 (BEAKER) (test code = 752) RED CELL DISTRIBUTION WIDTH 13.3 % 11.6-14.4 (BEAKER) (test code = 412) PLATELET COUNT (BEAKER) (test code 97 K/CU MM 150-450 L = 756) MEAN PLATELET VOLUME (BEAKER) 12.0 fL 9.4-12.4 (test code = 754) NUCLEATED RED BLOOD CELLS (BEAKER) 0 /100 WBC 0-0 (test code = 413) POCT-GLUCOSE [id number] 21:27:00 Test Item Value Reference Range Interpretation Comments POC-GLUCOSE METER 225 mg/dL 70-110 H : Notified RN/MD: (ROCHELLE) (test code = TESTED AT [facility] 6720 1538) [facility], [address]: Reconstructive Surgeon/Techni bruno ID = [id number] for Alen lucero (contract)Hemanth SARS-COV2/RT-PCR ([facility])2021-01-15 18:10:00 Test Item Value Reference Range Interpretation Comments SARS-COV2/RT-PCR Negative Negative The SARS-Co V-2 target (test code = nucleic acids a re not [id number]) detected in thi s specimen. Negative result s do not preclude SARS-C oV-2 infection and s hould not be used as the duyen e basis for patient managem ent decisions. Nega tive results must be combine d with clinical observ ations, patient history , and epidemiological information. A false negativ e result may occur if a spec imen is improperly caron ected, transported or handled. This SARS CoV-2 test is a rapid, real-jagruti e RT-PCR test intended for th e qualitative detection of nu cleic acid from SARS-CoV-2 in a nasopharyngeal swab specimen collected from individuals suspected of CO VID-19 by their healthcar e provider. This test has been authorized by FDA under an EUA for use by authorized laboratories. This test is only authorized for the duration of the declaration that circumstances exist justifying the authorization of emergency use of in vitro diagnostic tests for detection and/or diagnosis of COVID-19 under Section 564(b)(1) of the Federal Food, Drug and Cosmetic Act, 21 U.S.C. 360bbb- 3(b)(1), unless the authorization is terminated or revoked sooner. Fact Sheet for Healthcare Providers: https://www.[employer]/Documents/Xpert%20Xpress%20SARS%20CoV-2/Fact%20Sheets/3023802%20SARS-COV -2%20HEALTHCARE%20PROVIDERS%20FACT%20SHEET.pdf Fact Sheet for Healthcare Patients: https://www.[employer]Documents/Xpert %20Xpress%20SARS%20CoV-2/Fact%20Sheets/3023801%79JZZG-PQD-7%20PATIENT%20FACT%20 SHEET.pdfCOMPREHENSIVE METABOLIC [id number] 18:07:00 Test Item Value Reference Range Interpretation Comments TOTAL PROTEIN 6.4 gm/dL 6.0-8.3 (BEAKER) (test code = 770) ALBUMIN (BEAKER) 2.7 g/dL 3.5-5.0 L (test code = 1145) ALKALINE PHOSPHATASE 103 U/L 40-150 (BEAKER) (test code = 346) BILIRUBIN TOTAL 0.7 mg/dL 0.2-1.2 (BEAKER) (test code = 377) SODIUM (BEAKER) (test 137 meq/L 136-145 code = 381) POTASSIUM (BEAKER) 4.0 meq/L 3.5-5.1 (test code = 379) CHLORIDE (BEAKER) 106 meq/L 98-107 (test code = 382) CO2 (BEAKER) (test 25 meq/L 22-29 code = 355) BLOOD UREA NITROGEN 24 mg/dL 7-21 H (BEAKER) (test code = 354) CREATININE (BEAKER) 1.61 mg/dL 0.57-1.25 H (test code = 358) GLUCOSE RANDOM 282 mg/dL 70-105 H (BEAKER) (test code = 652) CALCIUM (BEAKER) 8.8 mg/dL 8.4-10.2 (test code = 697) AST (SGOT) (BEAKER) 776 U/L 5-34 H (test code = 353) ALT (SGPT) (BEAKER) 338 U/L 6-55 H (test code = 347) EGFR (BEAKER) (test 52 mL/min/1.73 ESTIMA MALA GFR IS code = 1092) sq m NOT ACCURATE CREATININE CLEARANCE IN PREDICTING GLOMERULAR FILTRATION RATE . ESTIMATED GFR I S NOT APPLICABLE FOR DIALYSIS PATIEN TS. Reconstructive Surgeon ID - ADMINPROTHROMBIN [id number] 17:37:00 Test Item Value Reference Range Interpretation Comments PROTIME (BEAKER) 13.7 seconds 11.9-14.2 (test code = 759) INR (BEAKER) (test 1.07 See_Comment [Automat ed message] code = 370) The system [employer] generated this result transmitted ref erence range: <=5.90. The reference range was not used to int erpret this result as normal/abnormal . RECOMMENDED COUMADIN/WARFARIN INR THERAPY RANGESSTANDARD DOSE: 2.0 - 3.0 Includes: PROPHYLAXIS forvenous thrombosis, systemic embolization; TREATMENT for venous thrombosis and/or pulmonary embolus.HIGH RISK: Target INR is 2.5-3.5 for patients with mechanical heart valves.CBC W/PLT COUNT & AUTO DIFFERENTIAL 2021-01-15 17:26:00 Test Item Value Reference Range Interpretation Comments WHITE BLOOD CELL COUNT (BEAKER) 8.3 K/ L 3.5-10.5 (test code = 775) RED BLOOD CELL COUNT (BEAKER) 3.09 M/ L 4.63-6.08 L (test code = 761) HEMOGLOBIN (BEAKER) (test code = 9.7 GM/DL 13.7-17.5 L 410) HEMATOCRIT (BEAKER) (test code = 28.8 % 40.1-51.0 L 411) MEAN CORPUSCULAR VOLUME (BEAKER) 93.2 fL 79.0-92.2 H (test code = 753) MEAN CORPUSCULAR HEMOGLOBIN 31.4 pg 25.7-32.2 (BEAKER) (test code = 751) MEAN CORPUSCULAR HEMOGLOBIN CONC 33.7 GM/DL 32.3-36.5 (BEAKER) (test code = 752) RED CELL DISTRIBUTION WIDTH 13.2 % 11.6-14.4 (BEAKER) (test code = 412) PLATELET COUNT (BEAKER) (test 108 K/CU MM 150-450 L code = 756) MEAN PLATELET VOLUME (BEAKER) 12.4 fL 9.4-12.4 (test code = 754) NUCLEATED RED BLOOD CELLS 0 /100 WBC 0-0 (BEAKER) (test code = 413) NEUTROPHILS RELATIVE PERCENT 67 % (BEAKER) (test code = 429) LYMPHOCYTES RELATIVE PERCENT 25 % (BEAKER) (test code = 430) MONOCYTES RELATIVE PERCENT 7 % (BEAKER) (test code = 431) EOSINOPHILS RELATIVE PERCENT 0 % (BEAKER) (test code = 432) BASOPHILS RELATIVE PERCENT 0 % (BEAKER) (test code = 437) NEUTROPHILS ABSOLUTE COUNT 5.58 K/ L 1.78-5.38 H (BEAKER) (test code = 670) LYMPHOCYTES ABSOLUTE COUNT 2.04 K/ L 1.32-3.57 (BEAKER) (test code = 414) MONOCYTES ABSOLUTE COUNT (BEAKER) 0.60 K/ L 0.30-0.82 (test code = 415) EOSINOPHILS ABSOLUTE COUNT 0.03 K/ L 0.04-0.54 L (BEAKER) (test code = 416) BASOPHILS ABSOLUTE COUNT (BEAKER) 0.03 K/ L 0.01-0.08 (test code = 417) IMMATURE GRANULOCYTES-RELATIVE 1 % 0-1 PERCENT (BEAKER) (test code = 7706)
[2021-11-29 19:02] LABS: Absolute Lymphocytes (CBC) 1.3 K/uL (0.7-4.9); Hematocrit 34.9 % (39.6-49.0); Lymphocytes % 35.7 % (15.3-44.8); MPV 9.7 fL (7.6-11.3)
[2021-11-29 19:07] LABS: Protime INR 1.22
[2021-11-29] MEDS ORDERED: MORPHINE 4 MG/ML SYR ONE (19:26)
[2021-11-29] MEDS ORDERED: ONDANSETRON 4 MG/2 ML VIAL ONE ×2 (19:27→21:36)
[2021-11-29 19:28] LABS: Albumin 2.2 g/dL (3.4-5.0); Bilirubin Total 1.1 mg/dL (0.2-1.0); Protein, Total 8.3 g/dL (6.4-8.2)
[2021-11-29 19:31] LABS: Potassium 2.8 mmol/L (3.5-5.1)
[2021-11-29 19:45] LABS: Urine Blood Trace-intact (Negative); Urine Glucose Negative (Negative); Urine Protein 2+ (Negative); Urine Specific Gravity 1.025 (1.005-1.030); Urine pH 5.5 (5.0-7.0)
--- NOTE | 2021-11-29 20:12 | RAD REPORT ---
EXAM DESCRIPTION: CTAbdomen Pelvis Wo Contrast - 11/29/2021 7:55 pm CLINICAL HISTORY: Suprapubic pain, urinary retention COMPARISON: Abdomen Pelvis Wo Contrast dated 06/23/2016; Abdomen Pelvis Wo Contrast dated 03/14/20 16; CT ABD PELVIS W CONTRAST dated 08/26/2015; CT ABDOMEN PELVIS WO CONTRAST dated 04/03/2015 TECHNIQUE: CT of the abdomen and pelvis was performed. All CT scans are performed using dose optimization technique as appropriate and may include automated exposure control or mA/KV adjustment according to patient size. FINDINGS: Lower chest: Atelectasis at the right lung base. Moderately thickened distal esophagus wit h tracking ascitic fluid. Liver: Cirrhotic liver morphology. Partial right hepatectomy. Biliary: Cholecystectomy Stomach: Circumferential Duodenum: No significant focal abnormality. Pancreas: No significant abnormality. Spleen: No significant abnormality. Adrenal: No suspicious lesions. Kidney/ureter: No hydronephrosis. Renal calculi versus vascular calcifications. Retroperitoneum: No retroperitoneal adenopathy. Vascular: No aneurysm. Atherosclerosis. Bowel: No significant focal abnormality. Peritoneum: Very large volume of ascites. Bladder: Rousseau catheter in decompressed bladder. Reproductive: No adnexal masses. Bones: No acute fracture. Multilevel degenerative changes are present in the spine. Other: n/a IMPRESSION: Very large volume of ascites presumably due to cirrhosis and portal hypertension. The tg butts has had a prior partial hepatectomy. The bladder is decompressed via Rousseau catheter. No hydronephrosis.
[2021-11-29] MEDS ORDERED: KCL 20 MEQ/100 mL IVPB 100 ML IV ONE (20:27)
[2021-11-29] MEDS ORDERED: POTASSIUM 25 MEQ EFFERV TAB ONE (20:30)
--- NOTE | 2021-11-29 20:31 | ER ---
Nurse's Notes [facility] Name: Babatunde Garsia Age: 66 yrs Sex: Male : 1955 Arrival Date: 11/29/2021 Time: 17:29 Bed 5 Private MD: Diagnosis: UTI/ Urinary tract infection, site not specified;Hypokalemia;Ascities Presentation: 11/29 17:31 Chief complaint: EMS states: hx of liver failure and ascites. increased abd pain and jh6 swelling over the last couple of days with n/v starting today. Coronavirus screen: Vaccine status: Patient reports receiving the 2nd dose of the covid vaccine. Ebola Screen: Patient negative for fever greater than or equal to 101.5 degrees Fahrenheit, and additional compatible Ebola Virus Disease symptoms Patient denies exposure to infectious person. Patient denies travel to an Ebola-affected area in the 21 days before illness onset. Initial Sepsis Screen: Does the patient meet any 2 criteria? No. Patient's initial sepsis screen is negative. Does the patient have a suspected source of infection? No. Patient's initial sepsis screen is negative. Risk Assessment: Do you want to hurt yourself or someone else? Patient reports no desire to harm self or others. Onset of symptoms was November 29, 2021. 17:31 Method Of Arrival: EMS: [facility] 17:31 Acuity: ADRIANNA 3 jh6 - Immunization history:: Adult Immunizations up to date. - Social history:: Smoking status: Patient denies any tobacco usage or history of. Screenin:30 Abuse screen: Denies threats or abuse. Nutritional screening: No deficits noted. 6 Tuberculosis screening: No symptoms or risk factors identified. Fall Risk None identified. Assessment: 17:30 General: Appears in no apparent distress. Behavior is calm, cooperative. 6 17:30 Pain: Complains of pain in abdomen Pain does not radiate. Pain currently is 7 out of 10 jh6 on a pain scale. Quality of pain is described as aching, crampy. GI: Abdomen is distended, Last BM Bowel sounds present X 4 quads. Hepatomegaly noted acities Reports lower abdominal pain, bloating, gaseousness, nausea, vomiting. 19:27 General: Appears in no apparent distress. comfortable, Behavior is calm, cooperative. lg3 Pain: Complains of pain in abdomen Quality of pain is described as aching, crampy, pressure. Neuro: No deficits noted. Vyas Agitation-Sedation Scale (RASS): 0 - Alert and Calm Level of Consciousness is awake, alert, obeys commands, Oriented to person, place, time, situation. Cardiovascular: No deficits noted. Denies chest pain, shortness of breath, Capillary refill < 3 seconds Clubbing of nail beds is absent Patient's skin is warm and dry. Respiratory: No deficits noted. Airway is patent Trachea midline Respiratory effort is even, unlabored, Respiratory pattern is regular, symmetrical. GI: Abdomen is round distended, noted to have ascites, Bowel sounds present X 4 quads. Hepatomegaly noted Reports lower abdominal pain, bloating, nausea, vomiting. : Rousseau in place to gravity drainage. EENT: No deficits noted. No signs and/or symptoms were reported regarding the EENT system. Derm: Skin is intact, is healthy with good turgor, Skin is dry. Musculoskeletal: No deficits noted. No signs and/or symptoms reported regarding the musculoskeletal system. Circulation, motion, and sensation intact. Range of motion: intact in all extremities. 20:50 Reassessment: Patient appears in no apparent distress at this time. No changes from lg3 previously documented assessment. Patient and/or family updated on plan of care and expected duration. Pain level reassessed. Patient is alert, oriented x 3, equal unlabored respirations, skin warm/dry/pink. Patient states feeling better. 23:27 Reassessment: Patient appears in no apparent distress at this time. No changes from lg3 previously documented assessment. Patient and/or family updated on plan of care and expected duration. Pain level reassessed. Patient is alert, oriented x 3, equal unlabored respirations, skin warm/dry/pink. Patient denies pain at this time. Patient states feeling better. Patient states symptoms have improved. Vital Signs: 17:31 BP 142 / 82; Pulse 87; Resp 16; Temp 98.8(TE); Pulse Ox 100% ; Weight 63.3 kg; Height 5 jh6 ft. 9 in. (175.26 cm); Pain 10/10; 18:00 BP 136 / 80; Pulse 86; Resp 17; Pulse Ox 100% ; Pain 6/10; jh6 19:27 BP 132 / 76; Pulse 88; Resp 17 S; Pulse Ox 100% on R/A; lg3 23:28 BP 146 / 84; Pulse 85; Resp 18 S; Pulse Ox 99% on R/A; lg3 17:31 Body Mass Index 20.61 (63.30 kg, 175.26 cm) 6 ED Course: 17:29 Patient arrived in ED. eb 17:30 Arm band placed on left wrist. jh6 17:31 Sarah Herrera, RN is Primary Nurse. 6 17:34 Triage completed. 6 17:34 Inserted saline lock: 22 gauge in right forearm, using aseptic technique. Blood 6 collected. 18:00 Placed in gown. Bed in low position. Call light in reach. Side rails up X 1. Adult w/ jh6 patient. 18:26 Florencio Morin NP is PHCP. pm1 18:26 Geraldo Avila MD is Attending Physician. pm1 19:20 Rousseau cath inserted, using sterile technique, 16 Fr., by la, balloon inflated, to 6 gravity drainage. 19:30 Notified Nurse Practitioner and/or Physician Weatherization Coordinator of a critical lab result(s), lp1 Potassium 2.8. 19:57 Abdomen In Process Unspecified. EDMS 20:05 Urine Microscopic Only Sent. lg3 23:29 No provider procedures requiring assistance completed. IV discontinued, intact, lg3 bleeding controlled, No redness/swelling at site. Pressure dressing applied. 23:30 Rousseau cath removed intact, balloon deflated. lg3 Administered Medications: 19:26 Drug: morphine 4 mg Route: IVP; Infused Over: 4 mins; Site: right forearm; lg3 19:26 Follow up: Response: No adverse reaction lg3 19:26 Drug: Zofran (Ondansetron) 4 mg Route: IVP; Site: right forearm; lg3 19:26 Follow up: Response: No adverse reaction lg3 20:40 Drug: Potassium Chloride Liquid 40 mEq Route: PO; lg3 20:41 Follow up: Response: No adverse reaction lg3 20:40 Drug: Rocephin (cefTRIAXone) 1 grams Route: IV; Rate: calculated rate; Site: right lg3 forearm; 20:41 Follow up: Response: No adverse reaction; IV Status: Completed infusion; IV Intake: 24usph1 20:41 Drug: Potassium Chloride 20 mEq Route: IV; Rate: calculated rate; Site: right forearm; lg3 23:27 Follow up: Response: No adverse reaction; IV Status: Completed infusion; IV Intake: lg3 100ml 21:32 Drug: Zofran (Ondansetron) 4 mg Route: IVP; Site: right forearm; lg3 21:32 Follow up: Response: No adverse reaction lg3 Medication: 23:30 VIS not applicable for this client. lg3 Intake: 20:41 IV: 10ml; Total: 10ml. lg3 23:27 IV: 100ml; Total: 110ml. lg3 Outcome: 20:31 Discharge ordered by MD. pm1 23:29 Discharged to home via ambulance. lg3 23:29 Condition: stable 23:29 Discharge instructions given to patient, Instructed on discharge instructions, follow up and referral plans. medication usage, Demonstrated understanding of instructions, follow-up care, medications, Prescriptions given X 3. 11/30 00:00 Patient left the ED. lg3 Signatures: Dispatcher [employer] EDMS Sona Aguirre RN RN lp1 Florencio Morin NP RIGGER THIRD pm1 Angela Bergman Lacie, RN RN lg3 Sarah Herrera RN RN jh6
--- NOTE | 2021-11-29 20:32 | EDPHYS ---
Physician Documentation [facility] Name: Babatunde Garsia Age: 66 yrs Sex: Male : 1955 Arrival Date: 11/29/2021 Time: 17:29 Bed 5 Private MD: ED Physician Geraldo Avila HPI: 11/29 18:34 This 66 yrs old Black Male presents to ER via EMS with complaints of Abdominal pain. pm1 18:34 The patient presents with abdominal pain suprapubic area. pm1 18:34 Onset: The symptoms/episode began/occurred 2 day(s) ago. The symptoms do not radiate. pm1 Associated signs and symptoms: Pertinent positives: dysuria, Pertinent negatives: nausea, vomiting, and diarrhea, chest pain, dysuria, fever, headache, shortness of breath. The symptoms are described as sharp. Modifying factors: The symptoms are alleviated by nothing, the symptoms are aggravated by nothing. Severity of pain: in the emergency department the pain is actually worse. The patient has experienced similar episodes in the past, a few times. The patient has not recently seen a physician. - Immunization history:: Adult Immunizations up to date. - Social history:: Smoking status: Patient denies any tobacco usage or history of. ROS: 18:34 Constitutional: Negative for fever, chills, and weight loss, Cardiovascular: Negative pm1 for chest pain, palpitations, and edema, Respiratory: Negative for shortness of breath, cough, wheezing, and pleuritic chest pain. 18:34 Back: Negative for injury and pain. 18:34 MS/Extremity: Negative for injury and deformity, Skin: Negative for injury, rash, and discoloration, Neuro: Negative for headache, weakness, numbness, tingling, and seizure. 18:34 Abdomen/GI: Positive for abdominal pain, of the suprapubic area, Negative for nausea, vomiting, and diarrhea. 18:34 : Positive for difficulty urinating. 18:34 All other systems are negative. Exam: 18:34 Constitutional: This is a well developed, well nourished patient who is awake, alert, pm1 and in no acute distress. Head/Face: Normocephalic, atraumatic. 18:34 Respiratory: Lungs have equal breath sounds bilaterally, clear to auscultation and percussion. No rales, rhonchi or wheezes noted. No increased work of breathing, no retractions or nasal flaring. 18:34 Back: No spinal tenderness. No costovertebral tenderness. Full range of motion. Skin: Warm, dry with normal turgor. Normal color with no rashes, no lesions, and no evidence of cellulitis. MS/ Extremity: Pulses equal, no cyanosis. Neurovascular intact. Full, normal range of motion. 18:34 Cardiovascular: Exam negative for acute changes, Rate: normal, Rhythm: regular, Pulses: no pulse deficits are appreciated, Edema: pedal edema, that is mild. 18:34 Abdomen/GI: Inspection: distension, that is mild, Bowel sounds: normal, in all quadrants, Palpation: abdomen is soft and non-tender, in all quadrants. 18:34 Neuro: Exam negative for acute changes, Orientation: is normal, Mentation: is normal, Motor: moves all fours. Vital Signs: 17:31 BP 142 / 82; Pulse 87; Resp 16; Temp 98.8(TE); Pulse Ox 100% ; Weight 63.3 kg; Height 5 6 ft. 9 in. (175.26 cm); Pain 10/10; 18:00 BP 136 / 80; Pulse 86; Resp 17; Pulse Ox 100% ; Pain 6/10; jh6 19:27 BP 132 / 76; Pulse 88; Resp 17 S; Pulse Ox 100% on R/A; lg3 23:28 BP 146 / 84; Pulse 85; Resp 18 S; Pulse Ox 99% on R/A; lg3 17:31 Body Mass Index 20.61 (63.30 kg, 175.26 cm) [facility] MDM: 18:26 Patient medically screened. pm1 19:29 ED course: 450 urine out by vora . pm1 20:15 Data reviewed: vital signs. Data interpreted: Pulse oximetry: on room air is 100 %. pm1 Interpretation: normal. 20:29 Counseling: I had a detailed discussion with the patient and/or guardian regarding: the pm1 historical points, exam findings, and any diagnostic results supporting the discharge/admit diagnosis, lab results, radiology results, the need for outpatient follow up, a family practitioner, a relationship associate, to return to the emergency department if symptoms worsen or persist or if there are any questions or concerns that arise at home. 11/29 18:34 Order name: CBC with Diff; Complete Time: 19:43 pm1 11/29 18:34 Order name: CMP; Complete Time: 19:43 pm1 11/29 18:34 Order name: Lipase; Complete Time: 19:43 pm1 11/29 18:34 Order name: PT-INR; Complete Time: 19:29 pm1 11/29 19:45 Order name: Urine Dipstick-Ancillary; Complete Time: 19:59 EDMS 11/29 19:59 Order name: Urine Microscopic Only; Complete Time: 10:47 pm1 11/29 19:36 Order name: Abdomen ; Complete Time: 20:15 EDMS 11/29 18:34 Order name: IV Saline Lock; Complete Time: 18:57 pm1 11/29 18:34 Order name: Labs collected and sent; Complete Time: 18:57 pm1 11/29 18:34 Order name: Urine Dipstick-Ancillary (obtain specimen); Complete Time: 19:38 pm1 11/29 18:34 Order name: Bladder Scanner; Complete Time: 19:26 pm1 Administered Medications: 19:26 Drug: morphine 4 mg Route: IVP; Infused Over: 4 mins; Site: right forearm; lg3 19:26 Follow up: Response: No adverse reaction lg3 19:26 Drug: Zofran (Ondansetron) 4 mg Route: IVP; Site: right forearm; lg3 19:26 Follow up: Response: No adverse reaction lg3 20:40 Drug: Potassium Chloride Liquid 40 mEq Route: PO; lg3 20:41 Follow up: Response: No adverse reaction lg3 20:40 Drug: Rocephin (cefTRIAXone) 1 grams Route: IV; Rate: calculated rate; Site: right lg3 forearm; 20:41 Follow up: Response: No adverse reaction; IV Status: Completed infusion; IV Intake: [id number] 20:41 Drug: Potassium Chloride 20 mEq Route: IV; Rate: calculated rate; Site: right forearm; lg3 23:27 Follow up: Response: No adverse reaction; IV Status: Completed infusion; IV Intake: lg3 100ml 21:32 Drug: Zofran (Ondansetron) 4 mg Route: IVP; Site: right forearm; lg3 21:32 Follow up: Response: No adverse reaction lg3 Disposition: 11/30 18:03 Co-signature as Attending Physician, Geraldo Avila MD. ma2 Disposition Summary: 11/29/21 20:31 Discharge Ordered Location: Home pm1 Problem: new pm1 Symptoms: have improved pm1 Condition: Stable pm1 Diagnosis - UTI/ Urinary tract infection, site not specified pm1 - Hypokalemia pm1 - Ascities pm1 Followup: pm1 - With: Emergency Department - When: As needed - Reason: Worsening of condition Followup: pm1 - With: Private Physician - When: 2 - 3 days - Reason: Recheck today's complaints, Continuance of care, Re-evaluation by your physician Discharge Instructions: - Discharge Summary Sheet pm1 - Ascites pm1 - Urinary Tract Infection, Adult pm1 - Hypokalemia pm1 Forms: - Medication Reconciliation Form pm1 - Thank You Letter pm1 - Antibiotic Education pm1 - Prescription Opioid Use pm1 Prescriptions: - ondansetron 4 mg Oral tablet,disintegrating - take 1 tablet by ORAL route every 8 hours As needed; 12 tablet; Refills: 0, pm1 Product Selection Permitted - Tramadol 50 mg Oral Tablet - take 1 tablet by ORAL route every 8 hours as needed; 12 tablet; Refills: 0, pm1 Product Selection Permitted - Bactrim DS 800-160 mg Oral Tablet - take 1 tablet by ORAL route every 12 hours for 10 days; 20 tablet; Refills: 0, pm1 Product Selection Permitted Signatures: Dispatcher [employer] EDAK Florencio Morin, [employer] pm1 Geraldo Avila MD MD ma2 Keely Ramirez, JUAN M RN lg3 Sarah Herrera RN RN jh6 Corrections: (The following items were deleted from the chart) 11/29 19:36 18:38 Abdomen Pelvis W Con+CT.RAD.BRZ ordered. EDAK EDMS 20:12 11/28 18:34 This 66 yrs old Black Male presents to ER via EMS with complaints of pm1 Abdominal pain. pm1 11/29 20:12 11/28 18:34 The patient presents with abdominal pain suprapubic area pm1 pm1
[2021-11-29] MEDS ORDERED: CEFTRIAXONE 1000 MG/VIAL ONE (20:38)
[2021-11-29 20:46] LABS: Urine Bacteria <20 /HPF (NONE SEEN); Urine RBC <5 /HPF (NONE SEEN)
[2021-11-30 00:34] VITALS: TEMP 98.8
[2021-11-30 00:40] VITALS: BP 146/84; O2SAT 99
--- NOTE | 2021-12-01 14:43 | EKG ---
Test Date: 2021-11-29 Test Time: 17:29:25 Bird Sitter: LAVERN MEASUREMENT RESULTS: Intervals: Rate: 100 NH: 138 QRSD: 64 QT: 352 QTc: 454 [place]: P: 38 NH: 138 QRS: -14 T: 253 INTERPRETIVE STATEMENTS: Normal sinus rhythm ST & T wave abnormality, consider inferior ischemia Abnormal ECG Compared to ECG 01/14/2021 22:46:43 ST (T wave) deviation now present Possible ischemia now present Sinus tachycardia no longer present T-wave abnormality no longer present Electronically Signed On 12-01-21 14:41:05 CDT by Tien Rainey
== END 2021-11-30 | disposition home or self-care (01) ==
LOC: ER 17:20
DX: N39.0 Urinary tract infection, site not specified (principal); E87.6 Hypokalemia; R18.8 Other ascites; R10.9 Unspecified abdominal pain; K72.90 Hepatic failure, unspecified without coma
CPT/HCPCS: 96365; 93005; 85025; 36415; 85610; 83690; 80053; 74176; 51702; 96375; 99284; 96366; J3480; J2405 ×2; 81003; 81015